=== PATIENT | female | born 1970 | race Caucasian/White ===

== ENCOUNTER → 2017-10-31 18:02 | Outpatient (CLI) | payer BC, SELFPAY | PROVIDERS: Family Provider Family Medicine; PCP Family Medicine; Visit Provider Family Medicine | DX: N39.0 Urinary tract infection, site not specified (principal) | CPT/HCPCS: 87086; 87088; 87186 ==

== ENCOUNTER 2018-03-20 06:42 | Emergency (ER) | payer BC, SELFPAY ==
[2018-03-20 06:42] VITALS: BP 169/86; PULSE 88; RESP 15; TEMP 37; O2SAT 96; BMI 35.8
--- NOTE | 2018-03-20 07:27 | CT_ITS ---
STUDY: CT ABDOMEN AND PELVIS WITHOUT CONTRAST REASON FOR EXAM: Female, 47 years old. Left flank pain. RADIATION DOSAGE (If Supplied By Facility): CTDIvol = ( 17.36 ) mGy, DLP = ( 897.78 ) mGycm TECHNIQUE: Transaxial images were obtained from the dome of the diaphragm to the symphysis pubis without oral contrast, and without intravenous contrast. Sagittal and coronal images were reconstructed. Individualized dose optimization techniques were used for this CT. COMPARISON: Comparison is made with prior examination dated April 30, 2017. FINDINGS: The visualized lung bases are unremarkable. The visualized portions of the heart are within normal limits. Normal liver. The patient is status post cholecystectomy. Normal spleen. Normal pancreas. Normal bilateral adrenal glands. Multiple nonobstructive right intrarenal calculi. The largest measures 3 mm. There are multiple tiny left intrarenal calculi. Mild degree of left hydronephrosis due to a 5.4 mm calculus at the left ureteral pelvic junction. Normal visualized stomach. Normal small intestine. Normal colon. The appendix is visualized and appears normal. Normal abdominal aorta. Normal inferior vena cava. There is borderline retroperitoneal lymphadenopathy with enlarged nodes no greater than 10mm in the short axis diameter. Normal urinary bladder. There is a small umbilical hernia containing fat. There are degenerative changes of the visualized lumbar spine. CT/Abdomen/Pelvis without Cont IMPRESSION: 5.4 mm calculus at the left ureteral pelvic junction with left hydronephrosis. Bilateral nonobstructive intrarenal calculi. Electronically Signed: Sumeet Loja MD at 8:37 EDT Tel [phone], Service support ,
[2018-03-20] MEDS: Ketorolac 30 MG/ML Syringe IV (07:39)
[2018-03-20] MEDS: Ondansetron 4 MG/2 ML Vial IV (07:39)
[2018-03-20] MEDS: Morphine 4 MG/ML Syringe IV (07:39)
[2018-03-20] MEDS: 0.9% Normal Saline 1,000 ML 250 ML IV ×2 (07:40→11:30)
[2018-03-20 07:44] LABS: Absolute Lymphocyte Count 2.02 X10^3/ul (0.83-4.51); Absolute Neutrophil Count 13.4 X10^3/uL (2.0-7.7); Basophil# 0.02 X10^3/uL; Basophil% 0.1 % (0-1); Eosinophil# 0.14 X10^3/uL; Eosinophils% 0.9 % (0-5); Hematocrit 39.3 % (37-47); Hemoglobin 12.6 g/dl (12.0-15.0); Lymphocyte # 2.02 X10^3/ul (4.0); Lymphocyte % 12.7 % (19-41); Mean Corp Hgb Conc 32.1 g/gl (32-36); Mean Corpuscular Hgb 28.3 pg (27.0-32.0); Mean Corpuscular Volume 88.1 fL (81-99); Mean Platelet Vol. 9.6 fl (6.2-12.0); Monocyte# 0.24 X10^3/uL; Monocyte% 1.5 % (0-10); Neutrophil % 84.5 % (47-70); Platelet Count 300 K/mm3 (150-450); RBC Distribution Width SD 45.1 fl (35.1-43.9); Red Blood Count 4.46 M/mm3 (4.2-5.4); White Blood Count 15.9 K/mm3 (4.4-11.0)
[2018-03-20 07:48] LABS: POSITIVE COUNT NO; POSITIVE DIFFERENTIAL NO; POSITIVE MORPHOLOGY NO
[2018-03-20 07:51] LABS: Anion Gap 12 (5-15); BUN 15 mg/dL (7-18); BUN/Creat Ratio 17.2 RATIO (10-20); Calcium,Total 9.5 mg/dL (8.5-10.1); Chloride 105 mmol/L (98-107); Creatinine, Serum 0.87 mg/dL (0.55-1.02); EST Glomerular Filtration Rate 74 mL/min (>60); Est Glom Filt Rate - Afr Amer 90 mL/min (>60); Estimated Creatinine Clearance 74.84 ml/min; Glucose 150 mg/dL (74-106); Potassium 3.6 mmol/L (3.5-5.1); Sodium Level 142 mmol/L (136-145)
[2018-03-20 07:52] LABS: Mucous, Urine 0 SEEN /hpf (<or=2+)
[2018-03-20 08:03] LABS: Color, Urine Yellow (Yellow); Glucose, Dipstick Normal (Normal); Ketone-Dipstick Negative (Negative); Leukocyte Esterase-Dipstick 100 /ul (Negative); Nitrite-Dipstick Negative (Negative); Occult Blood-Urine 250 /ul (Negative); Protein-Dipstick 100 mg/dl (Negative); Urine Bilirubin Dipstick Negative (Negative); Urine Clarity Sl. Cloudy (Clear); Urine Urobilinogen Normal (Normal); Urine pH 6.5 (5.0 - 8.0)
[2018-03-20 08:10] LABS: Bacteria 1+ /hpf (None Seen); Red Blood Cells-Urine 25-50 SEEN /hpf (0-5); Squamous Epithelial Cells - UA 0-5 SEEN /hpf (5-10); White Blood Cells 10-25 SEEN /hpf (0-5)
--- NOTE | 2018-03-20 09:05 | NURSING ---
CALLED [facility] TO REACH KULDEEP LI. JONNIE. CALLED HIS CELL, LEFT MESSAGE FOR HIM TO CALL US. CALLED OFFICE BACK, THEY WILL LET HIM KNOW WHEN HE ARRIVES AROUND [phone]
--- NOTE | 2018-03-20 09:40 | ED.VISSUMM ---
- ER Visit Summary Date of Service: 03/20/18 Chief Complaint: Kidney stone History of Present Illness: The patient is a 47 F states that yesterday she began to have vagina hurting and experiencing urinary frequency. She was concerned that she was getting another urinary tract infection. Then during the night the pain worsened she developed nausea vomiting and also left flank pain. She denies any fevers. She has a history of kidney stones having had a stent placed several years ago. She states that she is currently seeing a urologist at the [facility] here in [place] - Dr. Eliezer Hoffman. In addition to the stones, the patient has a history of interstitial cystitis Physical Examination: Afebrile vital signs are stable Gen: Well-nourished well-developed Head: Normocephalic atraumatic Eyes: Perrl EOMI ENT: TMs clear no rhinorrhea moist mucous membranes Neck: Supple no lymphadenopathy no JVD nontender CVS: Regular rate rhythm no murmurs normal S1-S2 Respiratory: No distress clear to auscultation bilaterally chest nontender Abdomen: Soft mild suprapubic tenderness to palpation nondistended normal bowel sounds no masses Back: Nontender Extremity: Nontender no edema Skin: Normal color no rash Neuro: alert orientated ?3 CN II-XII intact normal strength sensation reflexes gait cerebellar Psych: Normal affect normal mood Test Results: White count 15.9. Creatinine normal. Urinalysis demonstrates 10-25 white cells 25-50 red blood cells and 1+ bacteria. CT flank study demonstrated a 6 mm left UPJ stone with associated hydronephroureter. Emergency Department Course and Treatment: She received IV fluids, morphine, Zofran, and later Rocephin. She is feeling better. I put several calls out to her urologist. We discussed her care. Plan was to offer her outpatient evaluation at [facility] today or possible transfer to [facility] for urologic evaluation. She has chosen [facility]. Patient was accepted by Dr. De La Torre. She will go by private vehicle to their emergency room where she is scheduled to have surgery this afternoon. She was explicitly told to go directly to the ER and not to ingest any food or drink. Impression: 1. 6 mm left UPJ stone 2. UTI This note was generated with [employer] dictation software. It may contain incorrect words, spelling, and punctuation that were not noted in review of the chart prior to signing ED Disposition - Plan for ED Patient: Chief Complaint: Flank Pain Referrals: Regino Venegas MD [Primary Care Provider] -
--- NOTE | 2018-03-20 09:43 | ED.DCSUM_ITS ---
- ER Visit Summary Date of Service: 03/20/18 Chief Complaint: Kidney stone History of Present Illness: The patient is a 47 F states that yesterday she began to have vagina hurting and experiencing urinary frequency. She was concerned that she was getting another urinary tract infection. Then during the night the pain worsened she developed nausea vomiting and also left flank pain. She denies any fevers. She has a history of kidney stones having had a stent placed several years ago. She states that she is currently seeing a urologist at the [facility] here in [place] - Dr. Eliezer Hoffman. In addition to the stones, the patient has a history of interstitial cystitis Physical Examination: Afebrile vital signs are stable Gen: Well-nourished well-developed Head: Normocephalic atraumatic Eyes: Perrl EOMI ENT: TMs clear no rhinorrhea moist mucous membranes Neck: Supple no lymphadenopathy no JVD nontender CVS: Regular rate rhythm no murmurs normal S1-S2 Respiratory: No distress clear to auscultation bilaterally chest nontender Abdomen: Soft mild suprapubic tenderness to palpation nondistended normal bowel sounds no masses Back: Nontender Extremity: Nontender no edema Skin: Normal color no rash Neuro: alert orientated ?3 CN II-XII intact normal strength sensation reflexes gait cerebellar Psych: Normal affect normal mood Test Results: White count 15.9. Creatinine normal. Urinalysis demonstrates 10- 25 white cells 25-50 red blood cells and 1+ bacteria. CT flank study demonstrated a 6 mm left UPJ stone with associated hydronephroureter. Emergency Department Course and Treatment: She received IV fluids, morphine, Zofran, and later Rocephin. She is feeling better. I put several calls out to her urologist. We discussed her care. Plan was to offer her outpatient evaluation at [facility] today or possible transfer to [facility] for urologic evaluation. She has chosen [facility]. Patient was accepted by Dr. De La Torre. She will go by private vehicle to their emergency room where she is scheduled to have surgery this afternoon. She was explicitly told to go directly to the ER and not to ingest any food or drink. Impression: 1. 6 mm left UPJ stone 2. UTI This note was generated with [employer] dictation software. It may contain incorrect words, spelling, and punctuation that were not noted in review of the chart prior to signing ED Disposition - Plan for ED Patient: Chief Complaint: Flank Pain Referrals: Regino Venegas MD [Primary Care Provider] -
--- NOTE | 2018-03-20 11:02 | NURSING ---
FAXED FACESHEET TO [facility]
--- NOTE | 2018-03-20 11:18 | ED.RN ---
pt accepted at [facility]. will go to the er. dr thurston will take to surgery
[2018-03-20 11:39] VITALS: BP 154/80; PULSE 80; RESP 14; O2SAT 98
== END 2018-03-20 12:07 | disposition short-term general hospital (02) ==
PROVIDERS: Emergency Provider Emergency Medicine; Family Provider Family Medicine; PCP Family Medicine
DX: N20.1 Calculus of ureter (principal); N39.0 Urinary tract infection, site not specified; Z87.442 Personal history of urinary calculi; K21.9 Gastro-esophageal reflux disease without esophagitis; F32.9 Major depressive disorder, single episode, unspecified; Z79.899 Other long term (current) drug therapy
CPT/HCPCS: 74176; 80048; 81001; 85025; 87086; 87088; 87186; 96361; 96365; 96375; 99284; J7030; A4216; J0696; J2405

== ENCOUNTER → 2018-05-06 11:15 | Outpatient (CLI) | payer BC, SELFPAY ==
--- NOTE | 2018-05-06 11:18 | US_ITS ---
STUDY: RENAL ULTRASOUND - COMPLETE REASON FOR EXAM: Female, 47 years old. Bilateral renal stones. TECHNIQUE: Ultrasound evaluation of the kidneys was performed with real-time and static avila-scale imaging. COMPARISON: CT scan of 03/20/2018. FINDINGS: RIGHT KIDNEY: Normal location of the right kidney, which is normal in size. The right kidney measures 10.9 x 5.1 x 5.2 cm. There is a normal cortex of the right kidney. The renal cortex measures 1.4 cm. There is no right renal mass or cyst. Hyperechoic structure 1.2 cm appears to represent a nonobstructing renal stone. There is no right hydronephrosis. DISTAL RIGHT URETER: There is non-visualization of the distal right ureter. There is no demonstrated right ureterovesical junction calculus. There is a visualized right ureteral jet. LEFT KIDNEY: Normal location of the left kidney, which is normal in size. The left kidney measures 13.0 x 4.5 x 5.7 cm. There is a normal cortex of the left kidney. The renal cortex measures 1.5 cm. There is no left renal mass or cyst. Several small hyperechoic foci 8 mm size or less are consistent with nonobstructing stones. There is no left hydronephrosis. DISTAL LEFT URETER: There is non-visualization of the distal left ureter. There is no demonstrated left ureterovesical junction calculus. There is a visualized left ureteral jet. BLADDER: The distended urinary bladder has a volume of 112 ml. There is a normal wall thickness of the distended urinary bladder. There is no demonstrated mass within the urinary bladder. There are no demonstrated bladder calculi. US/Kidney and Bladder IMPRESSION: Bilateral nonobstructing renal stones. No hydronephrosis on either side. Electronically Signed: Leroy Taylor MD at 23:14 EST , Service support ,
== END ==
LOC: US 11:17
PROVIDERS: Family Provider Family Medicine; PCP Family Medicine
DX: N20.0 Calculus of kidney (principal)
CPT/HCPCS: 76770

== ENCOUNTER → 2018-05-31 14:03 | Outpatient (CLI) | payer BC, SELFPAY ==
--- NOTE | 2018-05-31 14:07 | RAD_ITS ---
HISTORY: Recent kidney stones on both sides. Patient states she has had recent surgery to remove stones on both sides. EXAM: Abdominal series 2 views COMPARISON: KUB 05/18/[address] abdomen and pelvis 03/20/2018 FINDINGS: No bowel obstruction. Partial obscuration of both kidneys secondary to overlying bowel. Cluster of small stones within the lower pole of the left kidney. Probable additional small stones, lower pole of the right kidney. Multiple pelvic phleboliths without significant change. No soft tissue mass or organomegaly. RAD/Abdomen Single View IMPRESSION: 1. No acute disease. 2. Multiple small bilateral renal stones. at 0124 Reported and signed by: Carson Flores MD Electronically Signed: Carson Flores, at 1:22 EST Tel , Service support ,
--- OUTSIDE RECORDS SUMMARY | 2018-07-26 13:32 | XMS RPT_ITS ---
:1970 Author Organization OH[facility] Care Team Providers Name Role Phone KULDEEP LI (JONNIE) Attending Unavailable BRITANY MAYBERRY Referring Unavailable PROVIDER, UNKNOWN Referring Unavailable Venegas, Regino Primary Care Unavailable TY DE LA TORRE Attending Unavailable DANI MOCK Attending Unavailable PROVIDER, UNKNOWN Referring Unavailable Venegas, Regino Primary Care Unavailable Venegas, Regino Primary Care Unavailable Tariq Farah Attending Unavailable LILIAM GRIFFIN Attending Unavailable LILIAM GRIFFIN Referring Unavailable Venegas, Regino Primary Care Unavailable LILIAM GRIFFIN Consulting Unavailable LILIAM GRIFFIN Attending Unavailable LILIAM GRIFFIN Referring Unavailable Venegas, Regino Primary Care Unavailable Venegas, Regino Attending Unavailable Venegas, Regino Primary Care Unavailable Venegas, Regino Referring Unavailable PROBLEMS PROBLEMS DATE TYPE CONDITION / CODE ATTENDING STATUS SOURCE 05/31/2018 Unknown N20.0 - Calculus LILIAM GRIFFIN Active [place] [facility] / Community N20.0(ICD-10) Hospital Repository 04/04/2018 Admitting Calculus of ureter Darcy MOCK [facility] Diagnosis / N20.1(ICD-10) [facility] System Repository 04/04/2018 Admitting Personal history Darcy MOCK [facility] Diagnosis of urinary (tract) [facility] System infections / Repository Z87.440(ICD-10) 03/20/2018 Admitting Calculus of kidney TY DE LA TORRE [facility] Diagnosis / N20.0(ICD-10) System Repository 03/20/2018 Admitting Pyonephrosis / TY DE LA T[facility] Diagnosis N13.6(ICD-10) System Repository 03/20/2018 Admitting Obesity, TY DE LA TORRE [facility] Diagnosis unspecified / System E66.9(ICD-10) Repository 03/20/2018 Admitting Body mass index TY DE LA TORRE [facility] Diagnosis (BMI) 35.0-35.9, System adult / Repository Z68.35(ICD-10) 11/01/2017 Unknown N39.0 - Urinary Regino Venegas [facility] tract infection, Community site not specified Hospital / N39.0(ICD-10) Repository PROCEDURES PROCEDURES No Procedure Records FoundRESULTS RESULTS ABDOMEN SINGLE VIEW Observed: 05/31/2018 Status: F Source: [place] 2:07 PM [facility] REPOSITORY [facility] Imaging Services [address] [place] [id number] Abdomen Single View MR#: [id number] Acct: [id number] Name: SUNI TRINIDAD Rep #: [id number] : 1970 F 47 From: Carson Flores MD PCP: Regino Venegas MD Status: REG CLI Study: Abdomen Single View Date of Exam: 05/31/18 Exam# [id number] Ordering Dr: HARPREET FELIX HISTORY: Recent kidney stones on both sides. Patient states she has had recent surgery to remove stones on both sides. EXAM: Abdominal series 2 views COMPARISON: KUB 05/18/[address] abdomen and pelvis 03/20/2018 FINDINGS: No bowel obstruction. Partial obscuration of both kidneys secondary to overlying bowel. Cluster of small stones within the lower pole of the left kidney. Probable additional small stones, lower pole of the right kidney. Multiple pelvic phleboliths without significant change. No soft tissue mass or organomegaly. RAD/Abdomen Single View IMPRESSION: 1. No acute disease. 2. Multiple small bilateral renal stones. at 0124 Reported and signed by: Carson Flores MD Electronically Signed: Carson Flores, at 1:22 EST Tel , Service support , CC: HARPREET FELIX; Regino Venegas MD Dielectric Machine Operator: Signed KIDNEY AND BLADDER Observed: 05/06/2018 Status: F Source: [place] 11:18 AM [facility] REPOSITORY [facility] Imaging Services [address] [place] [address] Kidney and Bladder MR#: [id number] Acct: [id number] Name: SUNI TRINIDAD Rep #: [id number] : 1970 F 47 From: Leroy Taylor MD PCP: Regino Venegas MD Status: REG CLI Study: Kidney and Bladder Date of Exam: 05/06/18 Exam# [id number] Ordering Dr: KATIANA FELIX STUDY: RENAL ULTRASOUND - COMPLETE REASON FOR EXAM: Female, 47 years old. Bilateral renal stones. TECHNIQUE: Ultrasound evaluation of the kidneys was performed with real-time and static avila-scale imaging. COMPARISON: CT scan of 03/20/2018. FINDINGS: RIGHT KIDNEY: Normal location of the right kidney, which is normal in size. The right kidney measures 10.9 x 5.1 x 5.2 cm. There is a normal cortex of the right kidney. The renal cortex measures 1.4 cm. There is no right renal mass or cyst. Hyperechoic structure 1.2 cm appears to represent a nonobstructing renal stone. There is no right hydronephrosis. DISTAL RIGHT URETER: There is non-visualization of the distal right ureter. There is no demonstrated right ureterovesical junction calculus. There is a visualized right ureteral jet. LEFT KIDNEY: Normal location of the left kidney, which is normal in size. The left kidney measures 13.0 x 4.5 x 5.7 cm. There is a normal cortex of the left kidney. The renal cortex measures 1.5 cm. There is no left renal mass or cyst. Several small hyperechoic foci 8 mm size or less are consistent with nonobstructing stones. There is no left hydronephrosis. DISTAL LEFT URETER: There is non-visualization of the distal left ureter. There is no demonstrated left ureterovesical junction calculus. There is a visualized left ureteral jet. BLADDER: The distended urinary bladder has a volume of 112 ml. There is a normal wall thickness of the distended urinary bladder. There is no demonstrated mass within the urinary bladder. There are no demonstrated bladder calculi. US/Kidney and Bladder IMPRESSION: Bilateral nonobstructing renal stones. No hydronephrosis on either side. Electronically Signed: Leroy Taylor MD at 23:14 EST , Service support , CC: KATIANA FELIX; Regino Venegas MD Dielectric Machine Operator: Signed CALCULI ANALYSIS(STONE) Collected: 04/04/2018 Status: F Source: [employer] 4:21 PM SYSTEM REPOSITORY TYPE CODE TESTS RESULT OUT OF REFERENCE UNITS RANGE LAB CALCR mg Calculi Mass 3 LAB CALC1 NA Calculi Number 1 LAB CALC2 mm Calculi Size 1 to 4 LAB CALC3 NA Calculi Description See Note Result Comment: Specimen consists of a single, small, light nava, irregular calculus. LAB CALC4 NA Calculi Composition See Note Result Comment: Calculi composed primarily of calcium oxalate dihydrate. INTERPRETIVE INFORMATION: Calculi (Stone) analysis Calculi are the products of physiological processes that yield crystalline compounds in a matrix of biological compounds and blood. Matrix components are not reported. The clinically significant crystalline components identified in calculi specimens are reported. Gross description may not be consistent with composition determined by FTIR analysis. Performed by [facility], [address] [place] [id number] [email or web address], Todd Casarez MD - Lab. Director Performed By: #### CALCO #### The performing lab is in the report. OP NOTE Observed: 04/04/2018 Status: F Source: [employer] 1:37 PM SYSTEM REPOSITORY Dani Mock MD 04/04/2018 at 1:37 PM UROLOGY OPERATIVE REPORT PATIENT NAME: Suni Trinidad DATE OF : 1970 TODAY'S DATE: 04/04/2018 PreOp Dx ureteral calculus PostOp Dx Same Operation : cysto right stent removal right ureteroscopy right stone basket extraction, no stent placed Surgeon Dani Mock MD Assist [facility] EBL Minimal Drains none Mccurdy Specimen stone Condition To PACU Findings:Small left ureteral calculus removed with basket. No stent replaced. Ureter clear up to pelvis. Suni Trinidad is a 47 y.o. female who presents with ureteral calculus . After having a discussion on treatment options, risks and benefits, the patient wishes to proceed forward with surgical intervention Patient was brought to the operating room. A thorough time out was performed and everyone present was in agreement. Patient was placed on OR table. Anesthesia and lines were maintained by the anesthesia team. Patient was placed in the dorsal lithotomy position. Prepped and draped in usual fashion. Pressure points were padded. A cystourethroscope was inserted through the urethra and the bladder was inspected. The left stent was removed and the guide wire was advanced to the level of the kidney. The 6.9 ureteroscope was advanced next to the wire. The stone was visualized and removed with a stone basket. All of the larger stone fragments were removed with the stone basket. The ureter was reinspected and all the remaining fragments were small and easily passable. The bladder was emptied and patient awoken from anesthesia. Dani Mock MD 04/04/18 1:37 PM HCG,URINE QUAL Collected: 04/04/2018 Status: F Source: [employer] 8:41 AM SYSTEM REPOSITORY TYPE CODE TESTS RESULT OUT OF REFERENCE UNITS RANGE LAB HCGUR Negative NA Negative HCG,Urine Qual Result Comment: is the most common reason for HCG in urine, although choriocarcinoma, hydatidiform mole, and certain nontropho- blastic malignancies also result in detectable urinary HCG levels. Sensitivity = 20mIU/mL. Performed By: #### HCGUR #### [employer] [address] [place] [phone] DISCHARGE SUMMARY Observed: 03/22/2018 Status: F Source: [employer] 12:56 PM SYSTEM REPOSITORY 48 Hour Discharge Summary Note Patient ID: Suni Trinidad [id number] 47 y.o. 1970 Admit date: 03/20/2018 Discharge date: 03/22/2018 Admitting Physician: Ty De La Torre MD Discharge Physician: Finn Krishnan DO Consults: none Admission Diagnoses: Kidney stone [N20.0] obesity Procedure: cystoscopy, fluroscopy, stent placement Treatment: surgery: as above Pertinent Findings and Labs noted during admission: see Epic Significant Diagnostic Studies: See Epic Discharge Diagnoses: Kidney stone [N20.0] obesity Discharged Condition: good Homegoing Instructions: activity as tolerated Recommended Follow-up: Follow up with Dr. Mock in 1-2 weeks Diet: regular diet Discharge Medications: Suni Trinidad Home Medication Instructions MAMTA:[id number] Printed on:03/27/18 2389 Medication Information cephALEXin (KEFLEX) 500 MG capsule Take 1 capsule by mouth 3 times daily Desogestrel-Ethinyl Estradiol (AZURETTE PO) Take by mouth gabapentin (NEURONTIN) 600 MG tablet Take 600 mg by mouth 3 times daily.. omeprazole (PRILOSEC) 20 MG delayed release capsule Take 20 mg by mouth daily oxybutynin (DITROPAN XL) 10 MG extended release tablet Take 1 tablet by mouth daily tamsulosin (FLOMAX) 0.4 MG capsule Take 1 capsule by mouth daily for 14 days Disposition: home GRAM W/ AUTODIFF Collected: 03/22/2018 Status: F Source: [employer] 12:56 AM SYSTEM REPOSITORY TYPE CODE TESTS RESULT OUT OF REFERENCE UNITS RANGE LAB IWBC 3.6-10.7 10*3/uL WBC Normal 9.0 LAB RBC 3.80-5.20 10*6/uL Low RBC 3.53 LAB HGB 11.7-16.0 g/dL Low Hemoglobin 10.5 LAB HCT 35.0-47.0 % Low Hematocrit 30.1 LAB MCV 79.0-98.0 fL MCV Normal 85.4 LAB MCH 26.0-34.0 pg MCH Normal 29.7 LAB MCHC 32.0-36.0 % MCHC Normal 34.8 LAB RDW 11.5-14.5 % RDW Normal 14.4 LAB PLT 140-440 10*3/uL Platelet Normal 278 LAB MPV 7.4-10.4 fL MPV Normal 8.1 LAB GRAN% 40.0-80.0 % Granulocytes Normal 64.5 LAB LYMP% 20.0-40.0 % Lymphocytes Normal 25.3 LAB MONO% 2.0-10.0 % Monocytes Normal 9.6 LAB EOS% 1.0-6.0 % Low Eosinophils 0.3 LAB BAS% 0.0-2.0 % Basophils Normal 0.3 LAB ANC 1.8-7.0 10*3/uL Abs Normal Neutrophile Cnt 5.8 LAB ALC 1.0-4.3 10*3/uL Abs Lymph Cnt Normal 2.3 LAB AMC 0.0-0.8 10*3/uL Abs Monocyte High Cnt 0.9 LAB AEC 0.0-0.5 10*3/uL Abs Eosin Cnt Normal 0.0 LAB ABC 0.0-0.2 10*3/uL Abs Baso Cnt Normal 0.0 Performed By: #### HEMANA LAURA, BMP3 #### [employer] [address] [place] [phone] BASIC METABOLIC PANEL Collected: 03/22/2018 Status: F Source: [employer] 12:56 AM SYSTEM REPOSITORY TYPE CODE TESTS RESULT OUT OF RANGE REFERENCE UNITS LAB NA3 137-145 mmol/L Sodium Normal 139 LAB K3 3.5-5.1 mmol/L Normal Potassium 3.6 LAB CL3 98-107 mmol/L High Chloride 108 LAB CO23 22-30 mmol/L Carbon Normal Dioxide 24 LAB ANIN3 NA Anion Gap 7 LAB GLUC3 70-100 mg/dL Glucose Normal 99 LAB BUN3 7-20 mg/dL Urea Normal Nitrogen 9 LAB CRET3 0.52-1.25 mg/dL Normal Creatinine 0.69 LAB GF3BR >60 mL/min eGFR > 60.0 LAB GF3WR >60 mL/min eGFR OTHER > 60.0 Result Comment: Source- MDRD equation with creatinine calibration to IDMS(NKDEP) eGFR not recommended for drug dose adjustment LAB CA3 8.4-10.4 mg/dL Normal Calcium 8.8 Performed By: #### HEMDF, BMP3 #### [facility] [address] [place] [address] OP NOTE Observed: 03/21/2018 Status: F Source: [employer] 9:09 AM SYSTEM REPOSITORY UROLOGY OPERATIVE REPORT PATIENT NAME: Suni Trinidad DATE OF : 1970 TODAY'S DATE: 03/21/2018 PreOp Dx: :URETERAL CALCULUS PostOp Dx: Same Operation Cystoscopy, flouroscopy,stent placement Surgeon Dani Mock MD Assist Finn Novak Anesthesia:general lma EBL Minimal Drains 6fr X 24cmJJ Mccurdy Specimen Complications None; patient tolerated the procedure well. Condition To PACU INDICATIONS: Suni Trinidad , is a 47 y.o. female who has kidney stone.She presents for cystoscopy and pyelogram. The risks, benefits, complications, treatment options, and expected outcomes were discussed with the patient. The patient concurred with the proposed plan, giving informed consent. FINDINGS: The Urethra is normal without strictures and without scarring. Bladder: Normal mucosa, without lesions. Ureteral orifice(s) was/were seen both. Ureteral orifice(s) both were in the normal location and both ureteral orifices were effluxing clear urine. Bimanual revealednormal She has 2 ureteral stones on the left, stent placed due to fever and uti. She will need laser litho in 1-2 weeks once uti clears. PROCEDURE: Suni Trinidad Was brought to the operating room. Thorough time out was performed and everyone present was in agreement. Patient was placed on OR table. Anesthesia and lines were maintained by the anesthesia team. Patient was placed in the dorsal lithotomy position, prepped with Betadine, and draped in the usual sterile fashion. Pressure points were padded. A 21 Arabic sheath rigid cystoscope was used to inspect both the urethra and bladder using30 degreelens. An 0.35 glidewire was placed under fluoroscopy to the renal pelvis.Stent was placed over the wire. Good coil was noted in the kidney and bladder. The bladder was drained the scope removed.The patient was awoken from anesthesia and was transferred to the recovery room having tolerated the procedure well. . Dani Mock MD 03/21/18 9:10 AM LACTIC ACID Collected: 03/21/2018 Status: F Source: [employer] 3:59 AM SYSTEM REPOSITORY TYPE CODE TESTS RESULT OUT OF RANGE REFERENCE UNITS LAB LACT3 0.7-2.0 mmol/L Normal Lactic Acid 1.4 Performed By: #### LACT3, HEMMIGUEL ÁNGEL BMP3M #### [facility] [employer] [address] [phone] HEMOGRAM Collected: 03/21/2018 Status: F Source: [employer] 3:59 AM SYSTEM REPOSITORY TYPE CODE TESTS RESULT OUT OF RANGE REFERENCE UNITS LAB IWBC 3.6-10.7 10*3/uL WBC Normal 10.5 LAB RBC 3.80-5.20 10*6/uL RBC Normal 3.84 LAB HGB 11.7-16.0 g/dL Low Hemoglobin 11.5 LAB HCT 35.0-47.0 % Low Hematocrit 32.8 LAB MCV 79.0-98.0 fL MCV Normal 85.3 LAB MCH 26.0-34.0 pg MCH Normal 29.9 LAB MCHC 32.0-36.0 % MCHC Normal 35.1 LAB RDW 11.5-14.5 % RDW Normal 14.2 LAB PLT 140-440 10*3/uL Platelet Normal 259 LAB MPV 7.4-10.4 fL MPV Normal 8.1 Performed By: #### LACT3, ROSI BMP3M #### [facility] [employer] [address] [phone] BASIC METABOLIC PANEL Collected: 03/21/2018 Status: F Source: [employer] 3:59 AM SYSTEM REPOSITORY TYPE CODE TESTS RESULT OUT OF RANGE REFERENCE UNITS LAB NA3 137-145 mmol/L Sodium Normal 140 LAB K3 3.5-5.1 mmol/L Normal Potassium 3.6 LAB CL3 98-107 mmol/L High Chloride 110 LAB CO23 22-30 mmol/L Low Carbon Dioxide 21 LAB ANIN3 NA Anion Gap 9 LAB GLUC3 70-100 mg/dL High Glucose 123 LAB BUN3 7-20 mg/dL Urea Normal Nitrogen 7 LAB CRET3 0.52-1.25 mg/dL Normal Creatinine 0.62 LAB GF3BR >60 mL/min eGFR > 60.0 LAB GF3WR >60 mL/min eGFR OTHER > 60.0 Result Comment: Source- MDRD equation with creatinine calibration to IDMS(NKDEP) eGFR not recommended for drug dose adjustment LAB CA3 8.4-10.4 mg/dL Low Calcium 8.2 Performed By: #### LACT3, HEMOG, BMP3M #### [facility] [address] [place] [phone] CR ABDOMEN AP Observed: 03/20/2018 Status: F Source: [employer] 9:41 PM SYSTEM REPOSITORY Patient Name: SUNI TRINIDAD Diagnostic Radiology Exam Date/Time 03/20/2018 20:26:55 EDT Exam CR Abdomen AP Ordering Physician [id number] TAYLOR Accession Number [id number] CPT4 Codes 58900 () Reason For Exam left-sided ureteral stones Report KUB CLINICAL INDICATION: Left-sided ureteral stones COMPARISON: None Supine images of the abdomen were obtained. Small stones are present in the lower pole of each kidney. On the left there is an approximately 0.4 cm calcification that projects along the psoas margin between the L2 and L3 spinous processes, probably in the region of the left ureteropelvic junction. Multiple vascular calcifications are noted in the pelvis. A calcification in the general vicinity of the left ureterovesicular junction cannot be excluded as a ureteral stone. Bowel gas pattern is nondilated. There is no gross evidence of free intraperitoneal air. Degenerative changes are noted in the hips, probably moderate on the right with femoral head spurring noted. IMPRESSION: Bilateral renal stones 4 mm calcification on the left in the vicinity of the ureteropelvic junction Small calcification in the pelvis in the vicinity of the left ureterovesicular junction could be a stone or phlebolith Report Dictated on Final Dictated: 03/20/2018 9:41 pm Dictating Physician: MD MESA DIANE Signed Date and Time: 03/20/2018 9:43 pm Signed by: MD MESA DIANE Transcribed Date and Time: 03/20/2018 9:41 LACTIC ACID Collected: 03/20/2018 Status: F Source: [employer] 9:41 PM SYSTEM REPOSITORY TYPE CODE TESTS RESULT OUT OF REFERENCE UNITS RANGE LAB LACT3 0.7-2.0 mmol/L High Alert Lactic Acid 2.4 Performed By: #### LACT3 #### [employer] [address] [place] [address] Observed: 03/20/2018 Status: F Source: [employer] CULTURE BLOOD 9:35 PM SYSTEM REPOSITORY Order Comment: Specimen Source Comment:Blood CULTURE BLOOD --> Status: F No growth at 5 days. Performed By: #### C/BLD #### [employer] [address] [place] [phone] HEMOGRAM W/ AUTODIFF Collected: 03/20/2018 Status: F Source: [employer] 9:27 PM SYSTEM REPOSITORY TYPE CODE TESTS RESULT OUT OF REFERENCE UNITS RANGE LAB IWBC 3.6-10.7 10*3/uL WBC High 14.3 LAB RBC 3.80-5.20 10*6/uL RBC Normal 4.02 LAB HGB 11.7-16.0 g/dL Hemoglobin Normal 12.0 LAB HCT 35.0-47.0 % Low Hematocrit 34.0 LAB MCV 79.0-98.0 fL MCV Normal 84.6 LAB MCH 26.0-34.0 pg MCH Normal 29.8 LAB MCHC 32.0-36.0 % MCHC Normal 35.3 LAB RDW 11.5-14.5 % RDW Normal 14.3 LAB PLT 140-440 10*3/uL Platelet Normal 275 LAB MPV 7.4-10.4 fL MPV Normal 7.8 LAB GRAN% 40.0-80.0 % Granulocytes High 85.1 LAB LYMP% 20.0-40.0 % Low Lymphocytes 10.1 LAB MONO% 2.0-10.0 % Monocytes Normal 4.4 LAB EOS% 1.0-6.0 % Low Eosinophils 0.1 LAB BAS% 0.0-2.0 % Basophils Normal 0.3 LAB ANC 1.8-7.0 10*3/uL Abs High Neutrophile Cnt 12.2 LAB ALC 1.0-4.3 10*3/uL Abs Lymph Cnt Normal 1.4 LAB AMC 0.0-0.8 10*3/uL Abs Monocyte Normal Cnt 0.6 LAB AEC 0.0-0.5 10*3/uL Abs Eosin Cnt Normal 0.0 LAB ABC 0.0-0.2 10*3/uL Abs Baso Cnt Normal 0.0 Performed By: #### HEMDF, PT, BMP3M #### [employer] [address] [place] [phone] PROTHROMBIN TIME Collected: 03/20/2018 Status: F Source: [employer] 9:27 PM SYSTEM REPOSITORY TYPE CODE TESTS RESULT OUT OF REFERENCE UNITS RANGE LAB PROTM 9.0-12.0 s Prothrombin Normal Time 10.4 Result Comment: . LAB INR 0.9-1.1 NA Normal INR 1.0 Result Comment: Recommended Anticoagulant Therapy: SEE BELOW ----- INR of 2.0 - 3.0 : - Prophylaxis of Venous Thrombosis (high-risk surgery) - Treatment of Venous Thrombosis - Treatment of Pulmonary Embolism (Includes tissue heart valves, Acute Myocardial Infarction to prevent systemic embolism, Valvular Heart Disease, and Atrial Fibrillation) ----- INR of 2.5 - 3.5 : - Mechanical Prosthetic Valves (high risk) - If oral anticoagulant therapy is used to prevent Myocardial Infarction Performed By: #### HEMANA LAURA PT, BMP3M #### [employer] [address] [place] [address] BASIC METABOLIC PANEL Collected: 03/20/2018 Status: F Source: [employer] 9:27 PM SYSTEM REPOSITORY TYPE CODE TESTS RESULT OUT OF RANGE REFERENCE UNITS LAB NA3 137-145 mmol/L Sodium Normal 137 LAB K3 3.5-5.1 mmol/L Normal Potassium 3.7 LAB CL3 98-107 mmol/L Chloride Normal 105 LAB CO23 22-30 mmol/L Carbon Normal Dioxide 22 LAB ANIN3 NA Anion Gap 11 LAB GLUC3 70-100 mg/dL High Glucose 123 LAB BUN3 7-20 mg/dL Urea Normal Nitrogen 11 LAB CRET3 0.52-1.25 mg/dL Normal Creatinine 0.70 LAB GF3BR >60 mL/min eGFR > 60.0 LAB GF3WR >60 mL/min eGFR OTHER > 60.0 Result Comment: Source- MDRD equation with creatinine calibration to IDMS(NKDEP) eGFR not recommended for drug dose adjustment LAB CA3 8.4-10.4 mg/dL Normal Calcium 9.0 Performed By: #### HEMDF, PT, BMP3M #### [employer] [address] [place] [phone] Observed: 03/20/2018 Status: F Source: [employer] CULTURE BLOOD (TWO) 9:25 PM SYSTEM REPOSITORY Order Comment: Specimen Source Comment:Blood CULTURE BLOOD (Two) --> Status: F No growth at 5 days. Performed By: #### C/BLT #### [employer] [address] [place] [address] Observed: 03/20/2018 Status: F Source: [employer] CULTURE URINE 4:54 PM SYSTEM REPOSITORY Order Comment: Specimen Source Comment:Urine, clean catch CULTURE URINE --> Status: F No growth (<1,000 CFU/ml). Performed By: #### C/UR #### [employer] [address] [place] [address] ED PROVIDER NOTE Observed: 03/20/2018 Status: F Source: [employer] 1:59 PM SYSTEM REPOSITORY [facility] EMERGENCY DEPT eMERGENCY dEPARTMENT eNCOUnter Pt Name: Suni Trinidad Birthdate 1970 Date of evaluation: 03/20/2018 Provider: Lanre Villar MD CHIEF COMPLAINT Chief Complaint Patient presents with ? Flank Pain pt diagnosed with kidney stone at [facility] and sent here. HISTORY OF PRESENT ILLNESS (Location/Symptom, Timing/Onset, Context/Setting, Quality, Duration, Modifying Factors, Severity) Note limiting factors. HPI Suni Trinidad is a 47 y.o. female who presents to the emergency department With request to be evaluate by urology. Patient states she was seen at [facility] and diagnosed with a large ureteral calculus. She was sent here for evaluation. Patient complains of flank pain. Denies chest pain shortness breath or abdominal pain. Complains of nausea without vomiting. Denies fevers. She received pain medicine at the other emergency department and feel some improvement. Nursing Notes were reviewed. REVIEW OF SYSTEMS (2+ for level 4; 10+ for level 5) Review of Systems Pertinent positives as above per history of present illness. Other systems reviewed and found to be negative to a total of 10 systems reviewed. PAST MEDICAL HISTORY No past medical history on file. SURGICAL HISTORY No past surgical history on file. CURRENT MEDICATIONS Previous Medications No medications on file ALLERGIES Bactrim ds [sulfamethoxazole-trimethoprim]; Percocet [oxycodone-acetaminophen]; Tramadol; and Vicodin [hydrocodone-acetaminophen] FAMILY HISTORY No family history on file. SOCIAL HISTORY Social History Social History ? Marital status: N/A Spouse name: N/A ? Number of children: N/A ? Years of education: N/A Social History Main Topics ? Smoking status: Not on file ? Smokeless tobacco: Not on file ? Alcohol use Not on file ? Drug use: Unknown ? Sexual activity: Not on file Other Topics Concern ? Not on file Social History Narrative ? No narrative on file SCREENINGS PHYSICAL EXAM (up to 7 for level 4, 8 or more for level 5) ED Triage Vitals [03/20/18 1610] BP Temp Temp Source Pulse Resp SpO2 Height Weight (!) 163/99 97.6 ?F (36.4 ?C) Oral 94 16 98 % 5' 6 (1.676 m) 222 lb (100.7 kg) Physical Exam Vital signs reviewed in nurse's notes. Patient is nontoxic in appearance. No respiratory distress. Head: Normocephalic, atraumatic Eyes: Pupils are equal, round and reactive to light. EOMI. Conjunctiva clear. Sclera anicteric ENT: Mucous membranes moist. Throat shows no erythema exudates or edema. Neck: No anterior adenopathy. No tenderness or stiffness. Chest: Nontender. No obvious flail segments. Lungs: Clear to auscultation bilaterally. No wheezing rales or rhonchi. Heart: Regular rate and rhythm. No audible murmur or gallop. Abdomen: Soft, nondistended, nontender. No rebound or guarding. No signs of peritonitis. Back: No midline tenderness. Positive left flank area tenderness. Extremities: No gross deformity. No obvious tenderness. No obvious joint swelling. No calf tenderness. Good distal pulses in all 4 extremities. Neurologic: Alert and fully oriented. No focal motor, sensory deficits in all 4 extremities. Cranial nerves II through XII grossly intact. Ambulatory with normal gait DIAGNOSTIC RESULTS LABS: Labs Reviewed URINE CULTURE EMERGENCY DEPARTMENT COURSE and DIFFERENTIAL DIAGNOSIS/MDM: Vitals: Vitals: 03/20/18 1610 BP: (!) 163/99 Pulse: 94 Resp: 16 Temp: 97.6 ?F (36.4 ?C) TempSrc: Oral SpO2: 98% Weight: 100.7 kg (222 lb) Height: 5' 6 (1.676 m) Medications sodium chloride flush 0.9 % injection 3 mL (not administered) morphine (PF) injection 2 mg (not administered) acetaminophen (TYLENOL) tablet 650 mg (not administered) MDM: On presentation here, urology is consulted. They will evaluate patient here in the Emergency Room and agree with plans for admission and consideration of operative intervention for stenting tomorrow. Here in the Emergency Room did review the laboratory studies and computed axial tomography scan report from the outlying facility. Patient at this time does not need repeat laboratory studies. Patient is admitted in fair condition CONSULTS: IP CONSULT TO UROLOGY PROCEDURES: Unless otherwise noted below, none Procedures FINAL IMPRESSION 1. Renal colic 2. Ureterolithiasis DISPOSITION/PLAN DISPOSITION Admitted 03/20/2018 03:59:40 PM PATIENT REFERRED TO: No follow-up provider specified. DISCHARGE MEDICATIONS: New Prescriptions No medications on file (Please note: Portions of this note were completed with a voice recognition program. Efforts were made to edit the dictations but occasionally words and phrases are mis-transcribed.) Form [id number] Lanre Villar MD (electronically signed) Emergency Medicine Provider Lanre Villar MD 03/20/18 1616 EMERGENCY DEPARTMENT Observed: 03/20/2018 Status: F Source: [place] SUMMARY 11:44 AM [facility] REPOSITORY [facility] Medical Records Department [address] [place] [address] Emergency Department Summary 03/20/18 0940 MR#: [id number] Acct: [id number] Name: SUNI TRINIDAD Rep #: [id number] : 1970 47 From: Tariq Farah DO PCP: Regino Venegas MD Status: REG ER - ER Visit Summary Date of Service: 03/20/18 Chief Complaint: Kidney stone History of Present Illness: The patient is a 47 F states that yesterday she began to have vagina hurting and experiencing urinary frequency. She was concerned that she was getting another urinary tract infection. Then during the night the pain worsened she developed nausea vomiting and also left flank pain. She denies any fevers. She has a history of kidney stones having had a stent placed several years ago. She states that she is currently seeing a urologist at the [facility] here in [place] - Dr. Kuldeep Hoffman. In addition to the stones, the patient has a history of interstitial cystitis Physical Examination: Afebrile vital signs are stable Gen: Well-nourished well-developed Head: Normocephalic atraumatic Eyes: Perrl EOMI ENT: TMs clear no rhinorrhea moist mucous membranes Neck: Supple no lymphadenopathy no JVD nontender CVS: Regular rate rhythm no murmurs normal S1-S2 Respiratory: No distress clear to auscultation bilaterally chest nontender Abdomen: Soft mild suprapubic tenderness to palpation nondistended normal bowel sounds no masses Back: Nontender Extremity: Nontender no edema Skin: Normal color no rash Neuro: alert orientated 3 CN II-XII intact normal strength sensation reflexes gait cerebellar Psych: Normal affect normal mood Test Results: White count 15.9. Creatinine normal. Urinalysis demonstrates 10-25 white cells 25-50 red blood cells and 1+ bacteria. CT flank study demonstrated a 6 mm left UPJ stone with associated hydronephroureter. Emergency Department Course and Treatment: She received IV fluids, morphine, Zofran, and later Rocephin. She is feeling better. I put several calls out to her urologist. We discussed her care. Plan was to offer her outpatient evaluation at [facility] today or possible transfer to [facility] for urologic evaluation. She has chosen [facility]. Patient was accepted by Dr. D eLa Torre. She will go by private vehicle to their emergency room where she is scheduled to have surgery this afternoon. She was explicitly told to go directly to the ER and not to ingest any food or drink. Impression: 1. 6 mm left UPJ stone 2. UTI This note was generated with [employer] dictation software. It may contain incorrect words, spelling, and punctuation that were not noted in review of the chart prior to signing ED Disposition - Plan for ED Patient: Chief Complaint: Flank Pain Referrals: Regino Venegas MD [Primary Care Provider] - What to do if you have Problems For any increased pain, shortness of breath, bleeding, nausea or vomiting, chest pain, or any unexpected problems, contact your Primary Care Provider. Call [facility] ([phone]) or report to the closest Emergency Room. Call 911 if necessary. 03/20/18 1144 <Electronically signed by Tariq Farah DO> Date Tariq Farah DO Cosigner Signature (If Indicated): Date CC: Regino Venegas MD ABDOMEN/PELVIS WITHOUT Observed: 03/20/2018 Status: F Source: [place] CONT 7:28 AM [facility] REPOSITORY [facility] Imaging Services [address] [place] [address] Abdomen/Pelvis without Cont MR#: [id number] Acct: [id number] Name: SUNI TRINIDAD Rep #: [id number] : 1970 F 47 From: Sumeet Loja MD PCP: Regino Venegas MD Status: REG ER Study: Abdomen/Pelvis without Cont Date of Exam: 03/20/18 Exam# [id number] Ordering Dr: Tariq Farah DO STUDY: CT ABDOMEN AND PELVIS WITHOUT CONTRAST REASON FOR EXAM: Female, 47 years old. Left flank pain. RADIATION DOSAGE (If Supplied By Facility): CTDIvol = ( 17.36 ) mGy, DLP = ( 897.78 ) mGycm TECHNIQUE: Transaxial images were obtained from the dome of the diaphragm to the symphysis pubis without oral contrast, and without intravenous contrast. Sagittal and coronal images were reconstructed. Individualized dose optimization techniques were used for this CT. COMPARISON: Comparison is made with prior examination dated April 30, 2017. FINDINGS: The visualized lung bases are unremarkable. The visualized portions of the heart are within normal limits. Normal liver. The patient is status post cholecystectomy. Normal spleen. Normal pancreas. Normal bilateral adrenal glands. Multiple nonobstructive right intrarenal calculi. The largest measures 3 mm. There are multiple tiny left intrarenal calculi. Mild degree of left hydronephrosis due to a 5.4 mm calculus at the left ureteral pelvic junction. Normal visualized stomach. Normal small intestine. Normal colon. The appendix is visualized and appears normal. Normal abdominal aorta. Normal inferior vena cava. There is borderline retroperitoneal lymphadenopathy with enlarged nodes no greater than 10mm in the short axis diameter. Normal urinary bladder. There is a small umbilical hernia containing fat. There are degenerative changes of the visualized lumbar spine. CT/Abdomen/Pelvis without Cont IMPRESSION: 5.4 mm calculus at the left ureteral pelvic junction with left hydronephrosis. Bilateral nonobstructive intrarenal calculi. 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 CBC W/DIFF, AUTOMATED Collected: 03/20/2018 Status: F Source: [place] 6:55 AM [facility] REPOSITORY TYPE CODE TESTS RESULT OUT OF RANGE REFERENCE UNITS LAB L100.1000 4.4-11.0 K/mm3 High WBC 15.9 LAB L100.1200 4.2-5.4 M/mm3 Normal RBC 4.46 LAB L100.1300 12.0-15.0 g/dl Normal HGB 12.6 LAB L100.1400 37-47 % Normal HCT 39.3 LAB L100.1500 81-99 fL Normal MCV 88.1 LAB L100.1600 27.0-32.0 pg Normal MCH 28.3 LAB L100.1700 32-36 g/gl Normal MCHC 32.1 LAB L100.1810 11.6-14.6 % Normal RDW CV 14.0 LAB L100.1820 35.1-43.9 fl High RDW SD 45.1 LAB L100.1900 150-450 K/mm3 Normal PLT 300 LAB L100.2000 6.2-12.0 fl Normal MPV 9.6 LAB L100.2100 47-70 % High NEUT% 84.5 LAB L100.2200 19-41 % Low LY% 12.7 LAB L100.2300 0-10 % Normal MONO% 1.5 LAB L100.2400 0-5 % Normal EO% 0.9 LAB L100.2500 0-1 % Normal BASO% 0.1 LAB L100.2550 0.0-0.9 % Normal IM GRAN % 0.300 Result Comment: IG% - Immature Granulocytes (promyelocytes, myelocytes and metamyelocytes) > 1% indicates that a LEFT SHIFT is Present. LAB L100.2620 2.0-7.7 X10 3/uL High Absolute Neut 13.4 LAB L100.2720 0.83-4.51 X10 3/ul Normal Absolute Lymph 2.02 Performed By: #### L100.0100 #### [facility] [address] [place], [place], [address] BASIC METABOLIC Collected: 03/20/2018 Status: F Source: [place] PROFILE (BMP) 6:55 AM [facility] REPOSITORY TYPE CODE TESTS RESULT OUT OF RANGE REFERENCE UNITS LAB L501.0100 74-106 mg/dL High GLU 150 Result Comment: Fasting Glucose result greater than or equal to 126 mg/dL suggests DIABETES MELLITUS per A.D.A. criteria. Please note revised GLUCOSE reference range effective 2017. LAB L501.1000 7-18 mg/dL Normal BUN 15 LAB L501.1100 0.55-1.02 mg/dL Normal CREAT,SERUM 0.87 Result Comment: The validity of the calculated GFR AND GFRAA in patients over 70 years has not been determined. Clinical correlation is essential. LAB L501.1110 >60 mL/min Normal EST GFR 74 Result Comment: Non- GFR Calc LAB L501.1115 >60 mL/min Normal EST GFR - AA 90 Result Comment: GFR Calc LAB L501.1255 ml/min Normal Estimated CRCL 74.84 LAB L501.1300 10-20 RATIO Normal BUN/CRE 17.2 LAB L501.2200 8.5-10 mg/dL Normal .1 CA 9.5 LAB L501.5300 136-14 mmol/L Normal 5 NA 142 LAB L501.5600 3.5-5. mmol/L Normal 1 K 3.6 LAB L501.5900 98-107 mmol/L Normal CL 105 LAB L501.6100 21.0-3 mmol/L Normal 2.0 CO2 25.0 LAB L501.6200 5-15 Normal GAP 12 Performed By: #### L500.2500 #### [facility] [address] [place], [address] URINALYSIS, COMPLETE Collected: 03/20/2018 Status: F Source: [place] 6:50 AM [facility] REPOSITORY Order Comment: Has pt arrived? Y How was Urine Obtained? CLEAN CATCH TYPE CODE TESTS RESULT OUT OF RANGE REFERENCE UNITS LAB L400.3000 Yellow COLOR Normal Yellow LAB L400.3050 Clear Normal CLARITY Sl. Cloudy LAB L400.3200 Normal mg/dl Normal GLUCOSE, UR Normal LAB L400.3300 Negative mg/dL Normal BILIRUBIN URINE Negative LAB L400.3400 Negative mg/dl Normal KETONE UR Negative LAB L400.3465 1.002-1.030 Normal SP.GR. DIPSTX 1.020 LAB L400.3550 5.0 - 8.0 pH UR Normal 6.5 LAB L400.3600 Negative mg/dl High PROT DIPSTX 100 LAB L400.3700 Normal mg/dl Normal UROBILI Normal LAB L400.3750 Negative Normal NITRITE UR Negative LAB L400.3780 Negative /ul High OCCULT BLOOD-UR 250 LAB L400.3800 Negative /ul High LEUK ESTERASE 100 LAB L400.4050 0-5 /hpf WBC Normal 10-25 SEEN LAB L400.4100 0-5 /hpf Normal RBC-UA 25-50 SEEN LAB L400.4150 5-10 /hpf SQUAM Normal EPI 0-5 SEEN LAB L400.4300 None Seen /hpf 1+ Normal BACTERIA LAB L400.4350 <or=2+ /hpf 0 Normal MUCUS, URINE SEEN Performed By: #### L400.0001 #### [facility] [address] [place], [address] Observed: 03/20/2018 Status: F Source: [place] CULTURE, URINE 6:50 AM [facility] REPOSITORY Has pt arrived? Y Urine Culture ORGANISM 1: Presumptive E. coli [place] Count >100,000 Presumptive E. coli: REACTION Amoxacillin/Clavulanic Acid $ 8 S Ampicillin $ >=32 R Ampicillin/Sulbactam $ >=32 R Cefazolin $ <=4 S Cefepime $ <=1 S Ceftriaxone $ <=1 S Ciprofloxacin $ <=0.25 S ESBL - Ertapenim $$$ <=0.5 S Gentamicin $ <=1 S Imipenem *NF <=0.25 S Levofloxacin $ <=0.12 S Nitrofurantoin $ <=16 S Piperacillin/Tazobactam $$ <=4 S Tobramycin $ <=1 S Trimethoprim/Sulfametho $ <=20 S (NF) indicates non-formulary drug at [facility]. Approval by Infectious Disease Specialist required before non-formulary drugs may be ordered and/or dispensed. Performed By: #### M100.0650 #### [facility] [address] [place], [address] PROGRESS Observed: 02/22/2018 Status: COMPLETED Source: [place] 10:37 AM [facility] REPOSITORY HNO ID: [id number] Author: Kuldeep Li (Pa) Service: (none) Author Type: Physician Genetic Technologist Type: Progress Notes Filed: 02/22/2018 11:26 AM Note Text: [facility] [place] PATIENT INFO: Suni Trinidad 47 year old PCP: Regino Venegas MD Referred by: Britany Mayberry A Consult: A consultation requested by Britany Mayberry A - UTI My final recommendations communicated back to the requesting physician by way of shared Medical record. CHIEF COMPLAINT: UTI HPI: This is a 47 year old female, who has had History UTi and IC 15 years , which started in 2001, and involves the Urine, Bladder Patient states this mild in severity and mild in quality, and is happening daily Aggravating factors: UTI , Alleviating Factors: No . And the patient denies having Fever, Chills, Rigors, Nausea and Vomiting VOIDING SYMPTOMS: NTF: 2 Times DTF: Q 2 HOURS FOS: Good Hesitancy: No Straining: No Intermittency: No Urgency: Yes Frequency: Yes Dysuria: Yes Gross Hematuria: No U/A Dipstick Positive Blood - Only Yes Incomplete Voiding: No Double Voiding: No Post Void Dribbling: No Incontinence: No REVIEW OF SYSTEMS: General: General: Well developed, well nourished. No acute distress HEENT: Negative for sore throat, difficulty swallowing. Negative for frequent or significant headaches, changes in vision or hearing. Cardiovascular: No history of cardiovascular symtoms or problems. No history of angina, CHF, TN, cardiac surgery of stents. Respiratory: Negative for current cough, dyspnea. No hx of pneumonia in the past six weeks Gastrointestinal: No history of GERD, PUD, abd pain, difficulty swallowing, GI bleed. Renal: Negative for renal failure and No history of dialysis Musculoskeletal: Negative for joint pain or swelling, back pain or muscle pain. Skin: Negative for lesions, rash and itching. Psychological: No history of psychiatric symptoms or problems. Neurologic: No history of TIA's, stroke, WAREHOUSE CLERK tumor, impaired sensorium, hemiplegia, paraplegia or quadriplegia. No neurological symptoms or problems. Hematology/Oncology: No history of bleeding or clotting disorder. Pt is not taking anti-coagulation or platelet medications. No history of hematological symptoms or problems. Endocrine: No history of endocrinological symtoms or problems No history of DM; has not taken steroids w/in past 30 days. Negative for excessive sweating, thirst or hunger PHYSICAL EXAMINATION: General Appearance/ Constitutional: Well developed, well nourished, and in no apparent distress HEENT: Not examined Neck: Lymph Nodes: Not examined Cardiac: Normal Breast: Not examined Pulmonary: Ascultation: Normal Effort: Normal GI: Soft and Non-tender Peripheral Vascular: Not examined Extremities: Cyanosis absent and Edema absent Skin: Normal Neurologic: Grossly non-focal and Alert and oriented ADDITIONAL DATA REVIEWED: Most recent imaging Most recent labs Results for orders placed or performed in visit on 01/16/18 UA DIP B/O Result Value Ref Range Glucose, Urine neg Neg mg/dL Bilirubin, Urine neg Neg Ketones, Urine neg Neg Specific [place], Ur 1.010 1.005 - 1.030 Hemoglobin/Blood,Ur moderate Neg pH, Urine 6.5 4.5 - 8.0 Protein, Urine 100 Neg mg/dL Urobilinogen, Urine 0.2 Normal (<1.1) EU Nitrites neg Neg Leukocytes trace Neg Color/Appearance yellow / clear comment: Quality Check Yes yes/no URINE CULTURE Result Value Ref Range Specimen Request Specimen received in preservative Culture >=100,000 CFU/ml Escherichia coli (A) Susceptibility Escherichia coli - MINIMUM INHIBITORY CONCENTRATION(VITEK) Ampicillin >=32 Resistant Gentamicin <=1 Susceptible Trimeth sulfameth <=20 Susceptible Cefazolin* <=4 Susceptible * CLSI breakpoints for therapy of uncomplicated UTI's due to E.coli, K.pneumoniae, and P.mirabilis were applied and may be used to predict the activity of oral agents(cefaclor, cefdinir, cefpodoxime, cefprozil, cefuroxime, cephalexin, loracarbef). Ciprofloxacin <=0.25 Susceptible Nitrofurantoin <=16 Susceptible Cefepime <=1 Susceptible Piperacillin/Tazobac <=4 Susceptible Ampicillin Sulbact >=32 Resistant Ceftriaxone <=1 Susceptible Meropenem <=0.25 Susceptible Ertapenem <=0.5 Susceptible IMPRESSION / PLAN: > History of UTI with residual symptoms and U/A blood and Leukocytes > Bactrim 3 day > Check Urine Culture if +ve 7 more days of Bactrim needs called in > History of IC > on Elmiron in the past , not longer taking > Last Cystoscopy was 15 years ago > Consult for IC in the near future I spent approximately 40 minutes in this visit, with more than 50% of the time devoted to patient discussion, counseling, review of records and/or coordination of care. Kuldeep Li MPAS, MT, CAREN GREWAL Observed: 02/22/2018 Status: COMPLETED Source: [place] 10:30 AM [facility] REPOSITORY Office Visit (UROLWS) SUNI TRINIDAD ([id number]) 1970 F Date Time Provider Department 02/22/18 10:30 AM KULDEEP LI) UROLWS During your visit today, we recorded the following information about you: Pulse Blood pressure Weight Height 84/minute 148/86 104.3 kg 1.651 m JONNIE Sotomayor 02/22/2018 11:26 AM Signed [facility] [place] PATIENT INFO: Suni Trinidad 47 year old PCP: Regino Venegas MD Referred by: Britany Mayberry A Consult: A consultation requested by Britany Mayberry A - UTI My final recommendations communicated back to the requesting physician by way of shared Medical record. CHIEF COMPLAINT: UTI HPI: This is a 47 year old female, who has had History UTi and IC 15 years , which started in 2001, and involves the Urine, Bladder Patient states this mild in severity and mild in quality, and is happening daily Aggravating factors: UTI , Alleviating Factors: No . And the patient denies having Fever, Chills, Rigors, Nausea and Vomiting VOIDING SYMPTOMS: NTF: 2 Times DTF: Q 2 HOURS FOS: Good Hesitancy: No Straining: No Intermittency: No Urgency: Yes Frequency: Yes Dysuria: Yes Gross Hematuria: No U/A Dipstick Positive Blood - Only Yes Incomplete Voiding: No Double Voiding: No Post Void Dribbling: No Incontinence: No REVIEW OF SYSTEMS: General: General: Well developed, well nourished. No acute distress HEENT: Negative for sore throat, difficulty swallowing. Negative for frequent or significant headaches, changes in vision or hearing. Cardiovascular: No history of cardiovascular symtoms or problems. No history of angina, CHF, TN, cardiac surgery of stents. Respiratory: Negative for current cough, dyspnea. No hx of pneumonia in the past six weeks Gastrointestinal: No history of GERD, PUD, abd pain, difficulty swallowing, GI bleed. Renal: Negative for renal failure and No history of dialysis Musculoskeletal: Negative for joint pain or swelling, back pain or muscle pain. Skin: Negative for lesions, rash and itching. Psychological: No history of psychiatric symptoms or problems. Neurologic: No history of TIA's, stroke, WAREHOUSE CLERK tumor, impaired sensorium, hemiplegia, paraplegia or quadriplegia. No neurological symptoms or problems. Hematology/Oncology: No history of bleeding or clotting disorder. Pt is not taking anti-coagulation or platelet medications. No history of hematological symptoms or problems. Endocrine: No history of endocrinological symtoms or problems No history of DM; has not taken steroids w/in past 30 days. Negative for excessive sweating, thirst or hunger PHYSICAL EXAMINATION: General Appearance/ Constitutional: Well developed, well nourished, and in no apparent distress HEENT: Not examined Neck: Lymph Nodes: Not examined Cardiac: Normal Breast: Not examined Pulmonary: Ascultation: Normal Effort: Normal GI: Soft and Non-tender Peripheral Vascular: Not examined Extremities: Cyanosis absent and Edema absent Skin: Normal Neurologic: Grossly non-focal and Alert and oriented ADDITIONAL DATA REVIEWED: Most recent imaging Most recent labs Results for orders placed or performed in visit on 01/16/18 UA DIP B/O Result Value Ref Range Glucose, Urine neg Neg mg/dL Bilirubin, Urine neg Neg Ketones, Urine neg Neg Specific [place], Ur 1.010 1.005 - 1.030 Hemoglobin/Blood,Ur moderate Neg pH, Urine 6.5 4.5 - 8.0 Protein, Urine 100 Neg mg/dL Urobilinogen, Urine 0.2 Normal (<1.1) EU Nitrites neg Neg Leukocytes trace Neg Color/Appearance yellow / clear comment: Quality Check Yes yes/no URINE CULTURE Result Value Ref Range Specimen Request Specimen received in preservative Culture >=100,000 CFU/ml Escherichia coli (A) Susceptibility Escherichia coli - MINIMUM INHIBITORY CONCENTRATION(VITEK) Ampicillin >=32 Resistant Gentamicin <=1 Susceptible Trimeth sulfameth <=20 Susceptible Cefazolin* <=4 Susceptible * CLSI breakpoints for therapy of uncomplicated UTI's due to E.coli, K.pneumoniae, and P.mirabilis were applied and may be used to predict the activity of oral agents(cefaclor, cefdinir, cefpodoxime, cefprozil, cefuroxime, cephalexin, loracarbef). Ciprofloxacin <=0.25 Susceptible Nitrofurantoin <=16 Susceptible Cefepime <=1 Susceptible Piperacillin/Tazobac <=4 Susceptible Ampicillin Sulbact >=32 Resistant Ceftriaxone <=1 Susceptible Meropenem <=0.25 Susceptible Ertapenem <=0.5 Susceptible IMPRESSION / PLAN: > History of UTI with residual symptoms and U/A blood and Leukocytes > Bactrim 3 day > Check Urine Culture if +ve 7 more days of Bactrim needs called in > History of IC > on [place] in the past , not longer taking > Last Cystoscopy was 15 years ago > Consult for IC in the near future I spent approximately 40 minutes in this visit, with more than 50% of the time devoted to patient discussion, counseling, review of records and/or coordination of care. Kuldeep Li, DERICS, MT, PAClara Yancey Ma 02/22/2018 11:43 AM Signed To see PCP for BP recheck JONNIE Sotomayor 02/22/2018 2:09 PM Signed Addended by: KULDEEP LI PA-C on: 02/22/2018 02:09 PM Modules accepted: Orders Referring Provider: BRITANY MAYBERRY [[id number]] Allergies As of Date: 02/22/2018 Noted Allergy Reaction HYDROCODONE-ACETAMINOPHEN 02/16/2016 9 - Itching IMITREX (SUMATRIPTAN) 09/19/2005 8 - GI Upset TRAMADOL 02/16/2016 9 - Itching ZOMIG (ZOLMITRIPTAN) 09/19/2005 Date Reviewed: 01/16/2018 Reviewed by: Yisel Bernard LPN - Fully Assessed Reason for Visit: Follow Up [171] UTI [116] Primary Visit Diagnosis:Acute cystitis with hematuria [N30.01] Other Visit Diagnoses:Dysuria [R30.0] Chronic interstitial cystitis [N30.10] Kidney stones [N20.0] Order(s):UA DIP, URINE (POC) [6304917] Order #: [id number]. #:[id number] sulfamethoxazole-trimethoprim (BACTRIM DS) 800-160 mg per tabletTake 1 tablet by mouth twice daily for 3 days.Disp: 6 tabletRfl: 0 URINE CULTURE [SQURCUL] Order #: [id number] Prescriptions as of 02/22/2018 Sig: SULFAMETHOXAZOLE 800 MG-TRIME* Take 1 tablet by mouth twice * FLUTICASONE 50 MCG/ACTUATION * Use 2 Sprays in each nostril * CETIRIZINE 10 MG TABLET Take 1 tablet by mouth once d* FLUOXETINE 40 MG CAPSULE Take 40 mg by mouth once bela* GABAPENTIN 300 MG CAPSULE 2 capsules three times daily DESOGESTREL-E.ESTRADIOL 0.15 * Take 1 tablet by mouth once d* LANSOPRAZOLE 30 MG CAPSULE,DE* Take 1 capsule by mouth once * More... Problem List As Of Date 02/22/2018 Noted Resolved Routine gynecological examination [Z01.419] INVALID FOR* Priority: B Class: Chronic More... Kidney stones [N20.0] INVALID FOR* Priority: B More... Fibromyalgia [M79.7] INVALID FOR* Priority: A More... Obesity [E66.9] INVALID FOR* More... Family hx of colon cancer [Z80.0] INVALID FOR* More... Chronic interstitial cystitis [N30.10] INVALID FOR* Abdominal pain, unspecified site [R10.9] INVALID FOR* Rectal bleeding [K62.5] INVALID FOR* Other instructions from your clinician: To see PCP for BP recheck Prescriptions ordered this encounter Disp Refills Start End SULFAMETHOXAZOLE 800 MG-TRIMETHOPRIM* 6 ta* 0 02/22/2018 02/25/2018 Route: ORAL Sig: Take 1 tablet by mouth twice daily for 3 days. Follow-up and Disposition History Recorded Questionnaire: AUA QUESTIONNAIRE TIMES IN THE PAST MONTH YOU HAD A FEELING OF NOT EMPTYING BLADDER? -> 0 TIMES IN PAST MONTH NEED TO URINATE AGAIN WITHIN 2 HRS OF LAST EMPTY? -> 5 TIMES IN PAST MONTH YOU HAVE STOPPED AND STARTED URINE FLOW? -> 1 TIMES IN THE PAST MONTH YOU FOUND IT DIFFICULT TO POSTPONE URINATING? -> 5 TIMES IN THE PAST MONTH YOU HAVE HAD A WEAK URINARY STREAM? -> 2 TIMES IN PAST MONTH YOU HAVE HAD TO PUSH OR STRAIN TO URINATE? -> 0 TIMES IN PAST MONTH YOU GET UP TO URINATE FROM SLEEP UNTIL AWAKE? -> 0 HOW WOULD YOU FEEL IF YOU HAD TO LIVE WITH YOUR URINARY CONDITION IT IS NOW? * WHAT IT THE TOTAL AUA SCORE? -> 15 Encounter Status:Closed by KULDEEP LI PA-C on 02/22/18 Observed: 02/22/2018 Status: F Source: [place] URINE CULTURE 12:47 AM [facility] REPOSITORY Sp. Request/Comment: - Low [place] Count Presurgical Sterilization Specimen received in preservative PLEASE ADD FOSFOMYCIN TO SENSITIVITY Culture Result - >=100,000 CFU/ml Escherichia coli --> ABNORMAL ALERT Testing or reporting of additional agents was requested. ORGANISM: Escherichia coli METHOD: Minimum inhibitory concentration(Vitek) Antibiotic Interp LINDA Status Ampicillin RESISTANT >=32 F Gentamicin SUSCEPTIBLE <=1 F Trimeth sulfameth SUSCEPTIBLE <=20 F Cefazolin SUSCEPTIBLE <=4 F CLSI breakpoints for therapy of uncomplicated UTI's due to E.coli, K.pneumoniae, and P.mirabilis were applied and may be used to predict the activity of oral agents(cefaclor, cefdinir, cefpodoxime, cefp rozil, cefuroxime, cephalexin, loracarbef). Ciprofloxacin SUSCEPTIBLE <=0.25 F Nitrofurantoin SUSCEPTIBLE <=16 F Cefepime SUSCEPTIBLE <=1 F Piperacillin/Tazobac SUSCEPTIBLE <=4 F Ampicillin Sulbact INTERMEDIATE 16 F Ceftriaxone SUSCEPTIBLE <=1 F Meropenem SUSCEPTIBLE <=0.25 F Ertapenem SUSCEPTIBLE <=0.5 F ORGANISM: Escherichia coli METHOD: LINDA Antibiotic Interp LINDA Status Fosfomycin SUSCEPTIBLE 1.0 F The FDA indication for fosfomycin tromethamine is uncomplicated UTIs caused by E. faecalis and E. coli only. Performed By: #### URDEBORAH #### [facility] [address] [place], [place] [address] CNPN Observed: 02/22/2018 Status: COMPLETED Source: [place] 12:00 AM [facility] REPOSITORY Telephone (UROOpTripWS) SUNI TRINIDAD ([id number]) 1970 F Date Time Provider Department 02/22/18 KULDEEP LI) UROLWS During your visit today, we recorded the following information about you: Liliam Pate RN 02/22/2018 3:34 PM Signed Patient Was seen in the office this morning and prescribed bactrim. She called and stated that she took one dose of the Bactrim and has broken out in a rash with itching and irritation in her throat. She took 2 Benadryl. I instructed her to go to the ER if she has symptoms of difficulty breathing. Please advise as to what antibiotic she should take now. JONNIE White RN 02/22/2018 4:53 PM Signed I am going to wait and see what the culture shows on Sunday. If she is having fever and chill she needs to go to ED or urgent car over the weekend Kuldeep Li, MPAS, [place], CAREN Judd LPN 02/23/2018 10:43 AM Signed Pt notified. Allergies As of Date: 02/22/2018 Noted Allergy Reaction HYDROCODONE-ACETAMINOPHEN 02/16/2016 9 - Itching IMITREX (SUMATRIPTAN) 09/19/2005 8 - GI Upset TRAMADOL 02/16/2016 9 - Itching ZOMIG (ZOLMITRIPTAN) 09/19/2005 Date Reviewed: 01/16/2018 Reviewed by: Yisel Bernard LPN - Fully Assessed Reason for Visit: Question [1327] Prescriptions as of 02/22/2018 Sig: SULFAMETHOXAZOLE 800 MG-TRIME* Take 1 tablet by mouth twice * FLUTICASONE 50 MCG/ACTUATION * Use 2 Sprays in each nostril * CETIRIZINE 10 MG TABLET Take 1 tablet by mouth once d* FLUOXETINE 40 MG CAPSULE Take 40 mg by mouth once bela* GABAPENTIN 300 MG CAPSULE 2 capsules three times daily DESOGESTREL-E.ESTRADIOL 0.15 * Take 1 tablet by mouth once d* LANSOPRAZOLE 30 MG CAPSULE,DE* Take 1 capsule by mouth once * More... Problem List As Of Date 02/22/2018 Noted Resolved Routine gynecological examination [Z01.419] INVALID FOR* Priority: B Class: Chronic More... Kidney stones [N20.0] INVALID FOR* Priority: B More... Fibromyalgia [M79.7] INVALID FOR* Priority: A More... Obesity [E66.9] INVALID FOR* More... Family hx of colon cancer [Z80.0] INVALID FOR* More... Chronic interstitial cystitis [N30.10] INVALID FOR* Abdominal pain, unspecified site [R10.9] INVALID FOR* Rectal bleeding [K62.5] INVALID FOR* Encounter Status:Closed by KULDEEP LI PA-C on 02/22/18 PROGRESS Observed: 01/16/2018 Status: COMPLETED Source: [place] 8:55 PM [facility] RE[facility] HNO ID: [id number] Author: Britany Mayberry Service: (none) Author Type: Nurse Practitioner Type: Progress Notes Filed: 01/16/2018 9:01 PM Note Text: Subjective HPI Pt presents with c/o intermittent urinary frequency and dysuria x 5 days. Denies fever, chills, abd/flank/back pain. Evaluated frequently for urinary complaints. Last several urine cultures were negative for UTI. States she was established with a urologist about 10 years ago and was being treated for IC. Review of Systems Constitutional: Negative for chills and fever. Gastrointestinal: Negative for abdominal pain, constipation, diarrhea, nausea and vomiting. Genitourinary: Positive for dysuria and frequency. Negative for flank pain, hematuria and urgency. Musculoskeletal: Negative for back pain and myalgias. Objective Physical Exam Constitutional: She is oriented to person, place, and time and well-developed, well-nourished, and in no distress. No distress. Abdominal: There is no CVA tenderness. Neurological: She is alert and oriented to person, place, and time. Skin: Skin is warm and dry. She is not diaphoretic. BP 162/90 Pulse 92 Temp 37.1 ?C (98.7 ?F) (Tympanic) Resp 18 Wt 101.5 kg (223 lb 12.8 oz) BMI 37.24 kg/m? .Patient presents with: burning and frequency with urination, nausea: x 5 days PAST MEDICAL HISTORY Diagnosis Date - Fibromyalgia - innerstitial cystiti - Other forms of migraine 1994 with aura - Urinary tract infection, site not specified RECURRENT PAST SURGICAL HISTORY Procedure Laterality Date - PAST SURGICAL HISTORY OF 2003 kidney stone removal/laser (Dr. Rachel) - REMOVAL GALLBLADDER 1999 LAPAROSCOPY (Dr. Og) ALLERGIES Hydrocodone-Acetaminophen; Imitrex [Sumatriptan]; Tramadol; Zomig [Zolmitriptan] MEDICATIONS fluticasone (FLONASE) 50 mcg/actuation nasal spray Use 2 Sprays in each nostril once daily. Rinse mouth after use. cetirizine (ZYRTEC) 10 mg tablet Take 1 tablet by mouth once daily. FLUoxetine HCl (PROZAC) 40 mg capsule Take 40 mg by mouth once daily. gabapentin (NEURONTIN) 300 mg capsule 2 capsules three times daily Desogestrel-Ethinyl Estradiol (KARIVA) 0.15-0.02mg x21 /0.01 mg x 5 ORAL per tablet Take 1 tablet by mouth once daily. lansoprazole (PREVACID) 30 mg ORAL capsule Take 1 capsule by mouth once daily. FAMILY HISTORY Problem Relation Age of Onset - Colon Cancer Mother age 56-57 - Diabetes Maternal Grandmother - Prostate Cancer Father Social History Substance Use Topics - Smoking status: Never Smoker - Smokeless tobacco: Never Used - Alcohol use Yes Comment: moderately. maybe two drinks a week ASSESSMENT/PLAN: 1. Burning with urination - ICD9: 788.1, ICD10: R30.0 (primary diagnosis) acute - UA positive for trace kvng esterase - Send urine for culture - Patient education for prevention given - UA DIP B/O - URINE CULTURE 2. Dysuria-frequency syndrome - ICD9: 597.81, ICD10: N34.3 - CONSULT TO UROLOGY PSR assisting pt in scheduling this visit. The patient is instructed to return or seek emergency treatment if symptoms become worse or with any acute change in condition. The patient verbalizes understanding and is in agreement with plan of care. Britany Mayberry CNP Observed: 01/16/2018 Status: F Source: [place] URINE CULTURE 8:49 PM [facility] REPOSITORY Sp. Request/Comment: - Specimen received in preservative Culture Result - >=100,000 CFU/ml Escherichia coli --> ABNORMAL ALERT ORGANISM: Escherichia coli METHOD: Minimum inhibitory concentration(Vitek) Antibiotic Interp LINDA Status Ampicillin RESISTANT >=32 F Gentamicin SUSCEPTIBLE <=1 F Trimeth sulfameth SUSCEPTIBLE <=20 F Cefazolin SUSCEPTIBLE <=4 F CLSI breakpoints for therapy of uncomplicated UTI's due to E.coli, K.pneumoniae, and P.mirabilis were applied and may be used to predict the activity of oral agents(cefaclor, cefdinir, cefpodoxime, cefp rozil, cefuroxime, cephalexin, loracarbef). Ciprofloxacin SUSCEPTIBLE <=0.25 F Nitrofurantoin SUSCEPTIBLE <=16 F Cefepime SUSCEPTIBLE <=1 F Piperacillin/Tazobac SUSCEPTIBLE <=4 F Ampicillin Sulbact RESISTANT >=32 F Ceftriaxone SUSCEPTIBLE <=1 F Meropenem SUSCEPTIBLE <=0.25 F Ertapenem SUSCEPTIBLE <=0.5 F Performed By: #### URCUL #### [facility] [address] [place], [place] [address] CNOV Observed: 01/16/2018 Status: COMPLETED Source: [place] 8:30 PM [facility] REPOSITORY Office Visit (WSTR) SUNI TRINIDAD ([id number]) 1970 F Date Time Provider Department 01/16/18 8:30 PM BRITANY MAYBERRY [facility] During your visit today, we recorded the following information about you: Temperature Pulse Respiration Blood pressure 98.7 degrees 92/minute 18/minute 162/90 Weight 101.5 kg Britany Mayberry APRN.ASSISTED LIVING ASSOCIATE 01/16/2018 9:01 PM Signed Subjective HPI Pt presents with c/o intermittent urinary frequency and dysuria x 5 days. Denies fever, chills, abd/flank/back pain. Evaluated frequently for urinary complaints. Last several urine cultures were negative for UTI. States she was established with a urologist about 10 years ago and was being treated for IC. Review of Systems Constitutional: Negative for chills and fever. Gastrointestinal: Negative for abdominal pain, constipation, diarrhea, nausea and vomiting. Genitourinary: Positive for dysuria and frequency. Negative for flank pain, hematuria and urgency. Musculoskeletal: Negative for back pain and myalgias. Objective Physical Exam Constitutional: She is oriented to person, place, and time and well-developed, well-nourished, and in no distress. No distress. Abdominal: There is no CVA tenderness. Neurological: She is alert and oriented to person, place, and time. Skin: Skin is warm and dry. She is not diaphoretic. BP 162/90 Pulse 92 Temp 37.1 ?C (98.7 ?F) (Tympanic) Resp 18 Wt 101.5 kg (223 lb 12.8 oz) BMI 37.24 kg/m? .Patient presents with: burning and frequency with urination, nausea: x 5 days PAST MEDICAL HISTORY Diagnosis Date - Fibromyalgia - innerstitial cystiti - Other forms of migraine 1994 with aura - Urinary tract infection, site not specified RECURRENT PAST SURGICAL HISTORY Procedure Laterality Date - PAST SURGICAL HISTORY OF 2003 kidney stone removal/laser (Dr. Rachel) - REMOVAL GALLBLADDER 1999 LAPAROSCOPY (Dr. Og) ALLERGIES Hydrocodone-Acetaminophen; Imitrex [Sumatriptan]; Tramadol; Zomig [Zolmitriptan] MEDICATIONS fluticasone (FLONASE) 50 mcg/actuation nasal spray Use 2 Sprays in each nostril once daily. Rinse mouth after use. cetirizine (ZYRTEC) 10 mg tablet Take 1 tablet by mouth once daily. FLUoxetine HCl (PROZAC) 40 mg capsule Take 40 mg by mouth once daily. gabapentin (NEURONTIN) 300 mg capsule 2 capsules three times daily Desogestrel-Ethinyl Estradiol (KARIVA) 0.15-0.02mg x21 /0.01 mg x 5 ORAL per tablet Take 1 tablet by mouth once daily. lansoprazole (PREVACID) 30 mg ORAL capsule Take 1 capsule by mouth once daily. FAMILY HISTORY Problem Relation Age of Onset - Colon Cancer Mother age 56-57 - Diabetes Maternal Grandmother - Prostate Cancer Father Social History Substance Use Topics - Smoking status: Never Smoker - Smokeless tobacco: Never Used - Alcohol use Yes Comment: moderately. maybe two drinks a week ASSESSMENT/PLAN: 1. Burning with urination - ICD9: 788.1, ICD10: R30.0 (primary diagnosis) acute - UA positive for trace kvng esterase - Send urine for culture - Patient education for prevention given - UA DIP B/O - URINE CULTURE 2. Dysuria-frequency syndrome - ICD9: 597.81, ICD10: N34.3 - CONSULT TO UROLOGY PSR assisting pt in scheduling this visit. The patient is instructed to return or seek emergency treatment if symptoms become worse or with any acute change in condition. The patient verbalizes understanding and is in agreement with plan of care. Britany Mayberry CNP Referring Provider: SELF [[id number]] Allergies As of Date: 01/16/2018 Noted Allergy Reaction HYDROCODONE-ACETAMINOPHEN 02/16/2016 9 - Itching IMITREX (SUMATRIPTAN) 09/19/2005 8 - GI Upset TRAMADOL 02/16/2016 9 - Itching ZOMIG (ZOLMITRIPTAN) 09/19/2005 Date Reviewed: 01/16/2018 Reviewed by: Yisel Bernard LPN - Fully Assessed Reason for Visit: burning and frequency with urination, nausea [Other] Cmt: x 5 days Primary Visit Diagnosis:Burning with urination [R30.0] Other Visit Diagnosis:Dysuria-frequency syndrome [N34.3] Order(s):UA DIP B/O [7881795] Order #: [id number] URINE CULTURE [SQURCUL] Order #: [id number] CONSULT TO UROLOGY [9041] Order #: [id number]: 1 Prescriptions as of 01/16/2018 Sig: FLUTICASONE 50 MCG/ACTUATION * Use 2 Sprays in each nostril * CETIRIZINE 10 MG TABLET Take 1 tablet by mouth once d* FLUOXETINE 40 MG CAPSULE Take 40 mg by mouth once bela* GABAPENTIN 300 MG CAPSULE 2 capsules three times daily DESOGESTREL-E.ESTRADIOL 0.15 * Take 1 tablet by mouth once d* LANSOPRAZOLE 30 MG CAPSULE,DE* Take 1 capsule by mouth once * More... Problem List As Of Date 01/16/2018 Noted Resolved Routine gynecological examination [Z01.419] INVALID FOR* Priority: B Class: Chronic More... Kidney stones [N20.0] INVALID FOR* Priority: B More... Fibromyalgia [M79.7] INVALID FOR* Priority: A More... Obesity [E66.9] INVALID FOR* More... Family hx of colon cancer [Z80.0] INVALID FOR* More... Chronic interstitial cystitis [N30.10] INVALID FOR* Abdominal pain, unspecified site [R10.9] INVALID FOR* Rectal bleeding [K62.5] INVALID FOR* Encounter Status:Closed by BRITANY MAYBERRY CNP on 01/16/18 Observed: 11/15/2017 Status: F Source: [place] URINE CULTURE 11:05 AM [facility] [place] REPOSITORY Sp. Request/Comment: - Specimen received in preservative Culture Result - 50,000 - <100,000 CFU/ml Escherichia coli --> ABNORMAL ALERT ORGANISM: Escherichia coli METHOD: Minimum inhibitory concentration(Vitek) Antibiotic Interp LINDA Status Ampicillin RESISTANT >=32 F Gentamicin SUSCEPTIBLE <=1 F Trimeth sulfameth SUSCEPTIBLE <=20 F Cefazolin SUSCEPTIBLE <=4 F CLSI breakpoints for therapy of uncomplicated UTI's due to E.coli, K.pneumoniae, and P.mirabilis were applied and may be used to predict the activity of oral agents(cefaclor, cefdinir, cefpodoxime, cefp rozil, cefuroxime, cephalexin, loracarbef). Ciprofloxacin SUSCEPTIBLE <=0.25 F Nitrofurantoin SUSCEPTIBLE <=16 F Cefepime SUSCEPTIBLE <=1 F Piperacillin/Tazobac SUSCEPTIBLE <=4 F Ampicillin Sulbact INTERMEDIATE 16 F Ceftriaxone SUSCEPTIBLE <=1 F Meropenem SUSCEPTIBLE <=0.25 F Ertapenem SUSCEPTIBLE <=0.5 F Performed By: #### URCUL #### [facility] [address] [address] PROGRESS Observed: 11/15/2017 Status: COMPLETED Source: [place] 11:00 AM [facility] REPOSITORY HNO ID: [id number] Author: Cathleen ([facility]) Rayo Service: (none) Author Type: Nurse Practitioner Type: Progress Notes Filed: 11/15/2017 11:31 AM Note Text: Subjective HPI Suni Trinidad is a 46 year old female who presents with dysuria, frequency, urgency, and nausea for the past 4 days. She denies back pain or abdominal pain. She has taken ibuprofen for a headache. Review of Systems Constitutional: Negative. Negative for chills and fever. Gastrointestinal: Positive for nausea. Negative for abdominal pain. Genitourinary: Positive for dysuria, frequency and urgency. Negative for flank pain and hematuria. Musculoskeletal: Negative for back pain. Neurological: Positive for headaches. BP 146/84 Pulse 86 Temp 36.8 ?C (98.3 ?F) (Tympanic) Resp 18 Wt 99.5 kg (219 lb 6.4 oz) BMI 36.51 kg/m? PAST MEDICAL HISTORY Diagnosis Date - Fibromyalgia - innerstitial cystiti - Other forms of migraine 1994 with aura - Urinary tract infection, site not specified RECURRENT PAST SURGICAL HISTORY Procedure Laterality Date - PAST SURGICAL HISTORY OF 2003 kidney stone removal/laser (Dr. Rachel) - REMOVAL GALLBLADDER 2000 LAPAROSCOPY (Dr. Og) ALLERGIES Hydrocodone-Acetaminophen; Imitrex [Sumatriptan]; Tramadol; Zomig [Zolmitriptan] MEDICATIONS fluticasone (FLONASE) 50 mcg/actuation nasal spray Use 2 Sprays in each nostril once daily. Rinse mouth after use. cetirizine (ZYRTEC) 10 mg tablet Take 1 tablet by mouth once daily. FLUoxetine HCl (PROZAC) 40 mg capsule Take 40 mg by mouth once daily. gabapentin (NEURONTIN) 300 mg capsule 2 capsules three times daily Desogestrel-Ethinyl Estradiol (KARIVA) 0.15-0.02mg x21 /0.01 mg x 5 ORAL per tablet Take 1 tablet by mouth once daily. lansoprazole (PREVACID) 30 mg ORAL capsule Take 1 capsule by mouth once daily. FAMILY HISTORY Problem Relation Age of Onset - Colon Cancer Mother age 56-57 - Diabetes Maternal Grandmother - Prostate Cancer Father Social History Substance Use Topics - Smoking status: Never Smoker - Smokeless tobacco: Never Used - Alcohol use Yes Comment: moderately. maybe two drinks a week Objective Physical Exam Constitutional: She is well-developed, well-nourished, and in no distress. HENT: Right Ear: Tympanic membrane, external ear and ear canal normal. Left Ear: Tympanic membrane, external ear and ear canal normal. Nose: Nose normal. No rhinorrhea. Mouth/Throat: Uvula is midline, oropharynx is clear and moist and mucous membranes are normal. Mucous membranes are not pale and not dry. No posterior oropharyngeal edema or posterior oropharyngeal erythema. Cardiovascular: Normal rate, regular rhythm and normal heart sounds. Pulmonary/Chest: Effort normal and breath sounds normal. Abdominal: Soft. She exhibits no distension and no mass. There is no tenderness. There is no guarding. Neurological: She is alert. Skin: Skin is warm and dry. Nursing note and vitals reviewed. ASSESSMENT/PLAN: 1. Acute cystitis with hematuria - ICD9: 595.0, ICD10: N30.01 (primary diagnosis) - CEPHALEXIN 500 MG CAPSULE 2. Burning with urination - ICD9: 788.1, ICD10: R30.0 acute - UA positive for kvng esterase, hematuria and proteinuria - Send urine for culture - Begin treatment with Keflex for 7 days - Patient education for prevention given - UA DIP B/O - URINE CULTURE - Follow-up with your PCP in 3-5 days if symptoms have not improved or sooner if symptoms worsen - Discussed red flags and need for immediate medical evaluation if any occur. - Discussed supportive care treatment with fluids, rest and analgesia. - Discussed expected course of illness Cathleen Cox APRN.CNP CNOV Observed: 11/15/2017 Status: COMPLETED Source: [place] 10:45 AM [facility] REPOSITORY Office Visit (WSTR) VIVISUNI Crowe ([id number]) 1970 F Date Time Provider Department 11/15/17 10:45 AM CATHLEEN COX (ASSISTED LIVING ASSOCIATE) [facility] During your visit today, we recorded the following information about you: Temperature Pulse Respiration Blood pressure 98.3 degrees 86/minute 18/minute 146/84 Weight 99.5 kg Cathleen Cox APRN.CNP 11/15/2017 11:31 AM Signed Subjective HPI Suni Trinidad is a 46 year old female who presents with dysuria, frequency, urgency, and nausea for the past 4 days. She denies back pain or abdominal pain. She has taken ibuprofen for a headache. Review of Systems Constitutional: Negative. Negative for chills and fever. Gastrointestinal: Positive for nausea. Negative for abdominal pain. Genitourinary: Positive for dysuria, frequency and urgency. Negative for flank pain and hematuria. Musculoskeletal: Negative for back pain. Neurological: Positive for headaches. BP 146/84 Pulse 86 Temp 36.8 ?C (98.3 ?F) (Tympanic) Resp 18 Wt 99.5 kg (219 lb 6.4 oz) BMI 36.51 kg/m? PAST MEDICAL HISTORY Diagnosis Date - Fibromyalgia - innerstitial cystiti - Other forms of migraine 1994 with aura - Urinary tract infection, site not specified RECURRENT PAST SURGICAL HISTORY Procedure Laterality Date - PAST SURGICAL HISTORY OF 2003 kidney stone removal/laser (Dr. Rachel) - REMOVAL GALLBLADDER 1999 LAPAROSCOPY (Dr. Og) ALLERGIES Hydrocodone-Acetaminophen; Imitrex [Sumatriptan]; Tramadol; Zomig [Zolmitriptan] MEDICATIONS fluticasone (FLONASE) 50 mcg/actuation nasal spray Use 2 Sprays in each nostril once daily. Rinse mouth after use. cetirizine (ZYRTEC) 10 mg tablet Take 1 tablet by mouth once daily. FLUoxetine HCl (PROZAC) 40 mg capsule Take 40 mg by mouth once daily. gabapentin (NEURONTIN) 300 mg capsule 2 capsules three times daily Desogestrel-Ethinyl Estradiol (KARIVA) 0.15-0.02mg x21 /0.01 mg x 5 ORAL per tablet Take 1 tablet by mouth once daily. lansoprazole (PREVACID) 30 mg ORAL capsule Take 1 capsule by mouth once daily. FAMILY HISTORY Problem Relation Age of Onset - Colon Cancer Mother age 56-57 - Diabetes Maternal Grandmother - Prostate Cancer Father Social History Substance Use Topics - Smoking status: Never Smoker - Smokeless tobacco: Never Used - Alcohol use Yes Comment: moderately. maybe two drinks a week Objective Physical Exam Constitutional: She is well-developed, well-nourished, and in no distress. HENT: Right Ear: Tympanic membrane, external ear and ear canal normal. Left Ear: Tympanic membrane, external ear and ear canal normal. Nose: Nose normal. No rhinorrhea. Mouth/Throat: Uvula is midline, oropharynx is clear and moist and mucous membranes are normal. Mucous membranes are not pale and not dry. No posterior oropharyngeal edema or posterior oropharyngeal erythema. Cardiovascular: Normal rate, regular rhythm and normal heart sounds. Pulmonary/Chest: Effort normal and breath sounds normal. Abdominal: Soft. She exhibits no distension and no mass. There is no tenderness. There is no guarding. Neurological: She is alert. Skin: Skin is warm and dry. Nursing note and vitals reviewed. ASSESSMENT/PLAN: 1. Acute cystitis with hematuria - ICD9: 595.0, ICD10: N30.01 (primary diagnosis) - CEPHALEXIN 500 MG CAPSULE 2. Burning with urination - ICD9: 788.1, ICD10: R30.0 acute - UA positive for kvng esterase, hematuria and proteinuria - Send urine for culture - Begin treatment with Keflex for 7 days - Patient education for prevention given - UA DIP B/O - URINE CULTURE - Follow-up with your PCP in 3-5 days if symptoms have not improved or sooner if symptoms worsen - Discussed red flags and need for immediate medical evaluation if any occur. - Discussed supportive care treatment with fluids, rest and analgesia. - Discussed expected course of illness NIK Harris APRN.CNP 11/15/2017 11:06 AM Signed [facility] PATIENT INFO BLADDER INFECTION OVERVIEW Bladder infections are one of the most common infections, causing symptoms of burning with urination and needing to urinate frequently. A bladder infection is a type of urinary tract infection (UTI). Bladder infections are more common is women than men. Most women have an uncomplicated bladder infection that is easily treated with a short course of antibiotics. In men, bladder infections may also affect the prostate gland, and a longer course of treatment may be needed. BLADDER INFECTION CAUSES The urinary tract includes the kidneys (which filter urine), ureters (the tube that carries urine from the kidneys to the bladder), the bladder (which stores urine), and urethra (the tube that carries urine out of the bladder). Bacteria do not normally live in these areas. However, bacteria normally live close to the urethra in women and men who are not circumcised. Bladder infections occur when bacteria travel up the urethra into the bladder. Factors that increase the risk of developing a bladder infection include: ? Vaginal sex ? Use of spermicides ? History of past bladder infections ? Diabetes In men, not being circumcised or having anal sex increase the risk of bladder infections. BLADDER INFECTION SYMPTOMS The typical symptoms of a bladder infection include: ? Pain or burning when urinating ? Frequent need to urinate ? Urgent need to urinate ? Blood in the urine Fever, back pain, nausea, or vomiting are not common symptoms of a bladder infection, but can occur in people with a kidney infection (pyelonephritis). If you have these symptoms, you should call your doctor or nurse immediately. Is it a bladder infection or something else? ? Burning with urination can also occur in people with vaginitis (eg, yeast infection) or urethritis (inflammation of the urethra). For this reason, it is important to call your healthcare provider before assuming you have a bladder infection. BLADDER INFECTION DIAGNOSIS Simple bladder infections are usually diagnosed based upon your symptoms alone. However, most patients, especially those who have bladder infection symptoms for the first time, should see a healthcare provider for urine testing. Urine culture ? A urine culture is a test that uses a sample of urine to try and grow bacteria in a laboratory. It usually requires about 48 hours to get results. However, a urine culture is not always required to diagnose a bladder infection. Urine culture is often recommended if: ? You have never had a bladder infection before ? You have symptoms that are not typical for bladder infection ? You have had resistant bladder infections before ? You have frequent bladder infections ? You do not begin to feel better within 24 to 48 hours after starting antibiotics ? You are BLADDER INFECTION TREATMENT Bladder infection ? In young, healthy adolescents and adults with a bladder infection, the usual treatment includes a three to seven day course of antibiotics. The typical drugs chosen are: trimethoprim-sulfamethoxazole (Bactrim?), nitrofurantoin (Macrobid?), ciprofloxacin (Cipro?) or levofloxacin (Levaquin?). In men, the infection may involve your prostate gland and treatment is usually given for at least 7 days. Your symptoms should begin to resolve within one day after starting treatment. It is important to take the full course of antibiotics to completely eliminate the infection. If your symptoms persist for more than two or three days after starting treatment, call your healthcare provider. If needed, you can take a prescription medication that numbs the bladder and urethra (phenazopyridine [Pyridium?]) to reduce the burning pain of some UTIs. A similar medication is available without a prescription (eg, Uristat). Both medications change the color of the urine (usually blue or orange) and can interfere with laboratory testing. You should not take these medications for more than 48 hours due to the risk of side effects. These medications do not treat the infection and must be taken along with an antibiotic. Some providers recommend drinking more fluids while treating bladder infections to help flush bacteria from the bladder. Others believe that drinking more fluids may dilute the antibiotic in the bladder and make the medication less effective. No studies have been performed to address this issue. There are also no good studies on the effectiveness of cranberry juice for treating a bladder infection; we do not recommend using cranberry juice to treat bladder infections. Follow-up care ? Follow-up testing is not needed in healthy, young men or women with a bladder infection if symptoms resolve. women are usually asked to have a repeat urine culture one to two weeks after treatment has ended to make sure the bacteria are no longer in the urine. RECURRENT BLADDER INFECTIONS Bladder infections versus other causes ? Some adults, especially women, develop bladder infections frequently. In this case, it is important to confirm that your symptoms (eg, pain or burning, frequency, and urgency) are caused by a bladder infection. Symptoms are usually similar from one infection to another. The best way to confirm an infection is to have a urine culture. If your urine culture is negative for infection, other causes of pain, burning, and frequency should be investigated. There is no reason to take antibiotics if your urine culture is negative. Need for further testing ? If you continue to develop bladder infections, you may require further testing. If you continue to notice blood in your urine after your bladder infection has cleared, you should have further testing. Preventing recurrent UTIs ? Women with recurrent urinary tract infections may be advised to take steps to prevent bladder infections, including one or more of the following: Changes in control ? Women who develop frequent bladder infections and use spermicides, particularly those who also use a diaphragm, may be encouraged to use an alternate method of control. Cranberry products ? Taking cranberry juice or cranberry tablets has been promoted as one way to help prevent frequent bladder infections. However, this has not been proven. Drinking more fluid and urinating after intercourse ? Although studies have not proven that drinking more fluids or urinating soon after intercourse can prevent infection, some healthcare providers recommend these measures since they are not harmful. Drinking more fluid may help to wash out bacteria that enter the bladder. Postmenopausal women ? Postmenopausal women who develop recurrent bladder infections may benefit from using vaginal estrogen. Vaginal estrogen is available in a flexible ring that is worn in the vagina for three months (eg, Estring?), a small tablet (Vagifem?), or a cream (eg, Premarin? or Estrace?). Vaginal estrogen is discussed in more detail in a separate topic review. Antibiotics ? A preventive antibiotic treatment may be recommended if you repeatedly develop bladder infections and have not responded to other preventive measures. Antibiotics are highly effective in preventing recurrent bladder infections and can be taken in several different ways. ? Preventive antibiotic ? You can take a low dose of an antibiotic once per day or three times per week for six months to several years. ? Antibiotics following intercourse ? In women who develop urinary tract infections after sex, taking a single low dose antibiotic after intercourse can help to prevent bladder infections. ? Self-treatment ? A plan to begin antibiotics at the first sign of a bladder infection may be recommended in some situations. Before starting this regimen, it is important that you have had testing (urine cultures) to confirm that your symptoms are caused by a bladder infection; some people have symptoms of a bladder infection but do not actually have an infection. Referring Provider: SELF [[id number]] Allergies As of Date: 11/15/2017 Noted Allergy Reaction HYDROCODONE-ACETAMINOPHEN 02/16/2016 9 - Itching IMITREX (SUMATRIPTAN) 09/19/2005 8 - GI Upset TRAMADOL 02/16/2016 9 - Itching ZOMIG (ZOLMITRIPTAN) 09/19/2005 Date Reviewed: 11/15/2017 Reviewed by: Cathleen ([facility]) Rayo - Fully Assessed Reason for Visit: burning, urgency and frequency with urination [Other] Cmt: x 4-5 days Primary Visit Diagnosis:Acute cystitis with hematuria [N30.01] Other Visit Diagnosis:Burning with urination [R30.0] Order(s):UA DIP B/O [3253114] Order #: [id number] URINE CULTURE [SQURCUL] Order #: [id number] cephALEXin (KEFLEX) 500 mg capsuleTake 1 capsule by mouth twice daily for 7 days.Disp: 14 capsuleRfl: 0 Prescriptions as of 11/15/2017 Sig: FLUTICASONE 50 MCG/ACTUATION * Use 2 Sprays in each nostril * CETIRIZINE 10 MG TABLET Take 1 tablet by mouth once d* FLUOXETINE 40 MG CAPSULE Take 40 mg by mouth once bela* GABAPENTIN 300 MG CAPSULE 2 capsules three times daily DESOGESTREL-E.ESTRADIOL 0.15 * Take 1 tablet by mouth once d* LANSOPRAZOLE 30 MG CAPSULE,DE* Take 1 capsule by mouth once * CEPHALEXIN 500 MG CAPSULE Take 1 capsule by mouth twice* More... Problem List As Of Date 11/15/2017 Noted Resolved Routine gynecological examination [Z01.419] INVALID FOR* Priority: B Class: Chronic More... Kidney stones [N20.0] INVALID FOR* Priority: B More... Fibromyalgia [M79.7] INVALID FOR* Priority: A More... Obesity [E66.9] INVALID FOR* More... Family hx of colon cancer [Z80.0] INVALID FOR* More... Chronic interstitial cystitis [N30.10] INVALID FOR* Abdominal pain, unspecified site [R10.9] INVALID FOR* Rectal bleeding [K62.5] INVALID FOR* Other instructions from your clinician: EXPRESS CARE PATIENT INFO BLADDER INFECTION OVERVIEW Bladder infections are one of the most common infections, causing symptoms of burning with urination and needing to urinate frequently. A bladder infection is a type of urinary tract infection (UTI). Bladder infections are more common is women than men. Most women have an uncomplicated bladder infection that is easily treated with a short course of antibiotics. In men, bladder infections may also affect the prostate gland, and a longer course of treatment may be needed. BLADDER INFECTION CAUSES The urinary tract includes the kidneys (which filter urine), ureters (the tube that carries urine from the kidneys to the bladder), the bladder (which stores urine), and urethra (the tube that carries urine out of the bladder). Bacteria do not normally live in these areas. However, bacteria normally live close to the urethra in women and men who are not circumcised. Bladder infections occur when bacteria travel up the urethra into the bladder. Factors that increase the risk of developing a bladder infection include: ? Vaginal sex ? Use of spermicides ? History of past bladder infections ? Diabetes In men, not being circumcised or having anal sex increase the risk of bladder infections. BLADDER INFECTION SYMPTOMS The typical symptoms of a bladder infection include: ? Pain or burning when urinating ? Frequent need to urinate ? Urgent need to urinate ? Blood in the urine Fever, back pain, nausea, or vomiting are not common symptoms of a bladder infection, but can occur in people with a kidney infection (pyelonephritis). If you have these symptoms, you should call your doctor or nurse immediately. Is it a bladder infection or something else? ? Burning with urination can also occur in people with vaginitis (eg, yeast infection) or urethritis (inflammation of the urethra). For this reason, it is important to call your healthcare provider before assuming you have a bladder infection. BLADDER INFECTION DIAGNOSIS Simple bladder infections are usually diagnosed based upon your symptoms alone. However, most patients, especially those who have bladder infection symptoms for the first time, should see a healthcare provider for urine testing. Urine culture ? A urine culture is a test that uses a sample of urine to try and grow bacteria in a laboratory. It usually requires about 48 hours to get results. However, a urine culture is not always required to diagnose a bladder infection. Urine culture is often recommended if: ? You have never had a bladder infection before ? You have symptoms that are not typical for bladder infection ? You have had resistant bladder infections before ? You have frequent bladder infections ? You do not begin to feel better within 24 to 48 hours after starting antibiotics ? You are BLADDER INFECTION TREATMENT Bladder infection ? In young, healthy adolescents and adults with a bladder infection, the usual treatment includes a three to seven day course of antibiotics. The typical drugs chosen are: trimethoprim-sulfamethoxazole (Bactrim?), nitrofurantoin (Macrobid?), ciprofloxacin (Cipro?) or levofloxacin (Levaquin?). In men, the infection may involve your prostate gland and treatment is usually given for at least 7 days. Your symptoms should begin to resolve within one day after starting treatment. It is important to take the full course of antibiotics to completely eliminate the infection. If your symptoms persist for more than two or three days after starting treatment, call your healthcare provider. If needed, you can take a prescription medication that numbs the bladder and urethra (phenazopyridine [Pyridium?]) to reduce the burning pain of some UTIs. A similar medication is available without a prescription (eg, Uristat). Both medications change the color of the urine (usually blue or orange) and can interfere with laboratory testing. You should not take these medications for more than 48 hours due to the risk of side effects. These medications do not treat the infection and must be taken along with an antibiotic. Some providers recommend drinking more fluids while treating bladder infections to help flush bacteria from the bladder. Others believe that drinking more fluids may dilute the antibiotic in the bladder and make the medication less effective. No studies have been performed to address this issue. There are also no good studies on the effectiveness of cranberry juice for treating a bladder infection; we do not recommend using cranberry juice to treat bladder infections. Follow-up care ? Follow-up testing is not needed in healthy, young men or women with a bladder infection if symptoms resolve. women are usually asked to have a repeat urine culture one to two weeks after treatment has ended to make sure the bacteria are no longer in the urine. RECURRENT BLADDER INFECTIONS Bladder infections versus other causes ? Some adults, especially women, develop bladder infections frequently. In this case, it is important to confirm that your symptoms (eg, pain or burning, frequency, and urgency) are caused by a bladder infection. Symptoms are usually similar from one infection to another. The best way to confirm an infection is to have a urine culture. If your urine culture is negative for infection, other causes of pain, burning, and frequency should be investigated. There is no reason to take antibiotics if your urine culture is negative. Need for further testing ? If you continue to develop bladder infections, you may require further testing. If you continue to notice blood in your urine after your bladder infection has cleared, you should have further testing. Preventing recurrent UTIs ? Women with recurrent urinary tract infections may be advised to take steps to prevent bladder infections, including one or more of the following: Changes in control ? Women who develop frequent bladder infections and use spermicides, particularly those who also use a diaphragm, may be encouraged to use an alternate method of control. Cranberry products ? Taking cranberry juice or cranberry tablets has been promoted as one way to help prevent frequent bladder infections. However, this has not been proven. Drinking more fluid and urinating after intercourse ? Although studies have not proven that drinking more fluids or urinating soon after intercourse can prevent infection, some healthcare providers recommend these measures since they are not harmful. Drinking more fluid may help to wash out bacteria that enter the bladder. Postmenopausal women ? Postmenopausal women who develop recurrent bladder infections may benefit from using vaginal estrogen. Vaginal estrogen is available in a flexible ring that is worn in the vagina for three months (eg, Estring?), a small tablet (Vagifem?), or a cream (eg, Premarin? or Estrace?). Vaginal estrogen is discussed in more detail in a separate topic review. Antibiotics ? A preventive antibiotic treatment may be recommended if you repeatedly develop bladder infections and have not responded to other preventive measures. Antibiotics are highly effective in preventing recurrent bladder infections and can be taken in several different ways. ? Preventive antibiotic ? You can take a low dose of an antibiotic once per day or three times per week for six months to several years. ? Antibiotics following intercourse ? In women who develop urinary tract infections after sex, taking a single low dose antibiotic after intercourse can help to prevent bladder infections. ? Self-treatment ? A plan to begin antibiotics at the first sign of a bladder infection may be recommended in some situations. Before starting this regimen, it is important that you have had testing (urine cultures) to confirm that your symptoms are caused by a bladder infection; some people have symptoms of a bladder infection but do not actually have an infection. Prescriptions ordered this encounter Disp Refills Start End CEPHALEXIN 500 MG CAPSULE 14 c* 0 11/15/2017 11/22/2017 Route: ORAL Sig: Take 1 capsule by mouth twice daily for 7 days. Medications Discontinued During This Encounter cephALEXin (KEFLEX) 500 mg capsule 14 c* 0 12/12/2016 11/15/2017 Route: ORAL Sig: Take 1 capsule by mouth twice daily for 7 days. Disc: Reason for discontinue is not on file. Encounter Status:Closed by CATHLEEN COX on 11/15/17 Observed: 10/31/2017 Status: F Source: [place] CULTURE, URINE 4:45 PM [facility] REPOSITORY Urine Culture ORGANISM 1: Presumptive E. coli [place] Count >100,000 Presumptive E. coli: REACTION Amoxacillin/Clavulanic Acid $ 4 S Ampicillin $ >=32 R Ampicillin/Sulbactam $ 16 I Cefazolin $ <=4 S Cefepime $ <=1 S Ceftriaxone $ <=1 S Ciprofloxacin $ <=0.25 S ESBL - Ertapenim $$$ <=0.5 S Gentamicin $ <=1 S Imipenem *NF <=0.25 S Levofloxacin $ <=0.12 S Nitrofurantoin $ <=16 S Piperacillin/Tazobactam $$ <=4 S Tobramycin $ <=1 S Trimethoprim/Sulfametho $ <=20 S (NF) indicates non-formulary drug at [facility]. Approval by Infectious Disease Specialist required before non-formulary drugs may be ordered and/or dispensed. Performed By: #### [id number] #### [facility] [place], [address] Observed: 10/15/2017 Status: F Source: [place] URINE CULTURE 12:06 PM [facility] [place] REPOSITORY Sp. Request/Comment: - Specimen received in preservative Culture Result - <10,000 CFU/ml Three or more organisms, no one type predominant, suggesting contamination during collection. Recollect if clinically indicated. Performed By: #### URCUL #### [facility] [address] [place], [place] [address] PROGRESS Observed: 10/15/2017 Status: COMPLETED Source: [place] 11:51 AM [facility] REPOSITORY HNO ID: [id number] Author: Shakeel Mendiola Service: (none) Author Type: Nurse Practitioner Type: Progress Notes Filed: 10/15/2017 12:11 PM Note Text: SUBJECTIVE: Suni Trinidad is a 46 year old female. Who presents today with concerns for a UTI. She has these infections several times a year. Frequency of urine + suprapubic pain R flank aching. No burning no blood in urine. She states that she is also raw down there from wiping. Symptoms started on Sunday. She denies fever abd pain v cp and sob HPI PAST MEDICAL HISTORY Diagnosis Date - Fibromyalgia - innerstitial cystiti - Other forms of migraine 1994 with aura - Urinary tract infection, site not specified RECURRENT FAMILY HISTORY Problem Relation Age of Onset - Colon Cancer Mother age 56-57 - Diabetes Maternal Grandmother - Prostate Cancer Father Social History Substance Use Topics - Smoking status: Never Smoker - Smokeless tobacco: Never Used - Alcohol use Yes Comment: moderately. maybe two drinks a week ALLERGIES Allergen Reactions - Hydrocodone-Acetami* Itching - Imitrex [Sumatripta* GI Upset - Tramadol Itching - Zomig [Zolmitriptan] Current Outpatient Prescriptions: fluticasone (FLONASE) 50 mcg/actuation nasal spray Use 2 Sprays in each nostril once daily. Rinse mouth after use. Disp: 1 Bottle Rfl: 1 cetirizine (ZYRTEC) 10 mg tablet Take 1 tablet by mouth once daily. Disp: 30 tablet Rfl: 0 FLUoxetine HCl (PROZAC) 40 mg capsule Take 40 mg by mouth once daily. Disp: Rfl: gabapentin (NEURONTIN) 300 mg capsule 2 capsules three times daily Disp: 180 capsule Rfl: 5 Desogestrel-Ethinyl Estradiol (KARIVA) 0.15-0.02mg x21 /0.01 mg x 5 ORAL per tablet Take 1 tablet by mouth once daily. Disp: 1 Package Rfl: 12 lansoprazole (PREVACID) 30 mg ORAL capsule Take 1 capsule by mouth once daily. Disp: Rfl: 0 No current facility-administered medications for this visit. OBJECTIVE: BP 128/72 Pulse 68 Temp 36.3 ?C (97.3 ?F) (Tympanic) Resp 16 Wt 98.9 kg (218 lb) LMP 09/24/2017 BMI 36.28 kg/m2 ROS all other systems reviewed and are negative Physical Exam Constitutional: Well developed, well nourished, NAD, alert and oriented to person , place and time, in no apparent distress. ENT: Head is atraumatic, airway patent, mucosal membranes moist. Eyes: EOMI, PERRL, no drainage, vision unchanged Neck: supple with no palpable lymph nodes, no midline tenderness Cardiac: Normal rate and rhythm. Heart sounds S1, S2. No murmurs, rubs or gallops. Chest: nontender Respiratory: No retractions or use of accessory muscles. Breath sounds clear and equal bilaterally. GI: Abdomen soft and non-distended, without tenderness, rebound or guarding. Bowel sounds normal. : no CVA tenderness MS: no swelling tenderness or deformity in upper or lower extremities, no midline tenderness in thoracic or lumbar spine. Neuro: strength sensation and coordination intact. CN II-XII grossly intact, Skin: warm and dry with out rash, lesion or ecchymosis Psych: alert appropriate, speech clear It was a pleasure to take care of Suni Trinidad today. Her urine dip is positive for blood protein and leuks. There for I will treat her with macrobid For the areas that are raw I have encouraged her to wash with soap and keep the area clean and dry Patient will follow up with family physician. They may return to the Urgent Care or go to the ER for worsening symptoms or concerns. Patient verbalized understanding of plan of care and is in agreement. ASSESSMENT/PLAN: 1. Urinary frequency - ICD9: 788.41, ICD10: R35.0 Shakeel Mendiola APRN.PORTER ASSESSMENT/PLAN: 1. Urinary frequency - ICD9: 788.41, ICD10: R35.0 (primary diagnosis) - UA DIP B/O - URINE CULTURE - NITROFURANTOIN MONOHYDRATE AND MACROCRYSTAL 100 MG ORAL CAP 2. Recurrent UTI (urinary tract infection) - ICD9: 599.0, ICD10: N39.0 - UA DIP B/O - URINE CULTURE - NITROFURANTOIN MONOHYDRATE AND MACROCRYSTAL 100 MG ORAL CAP Shakeel Mendiola APRN.CNP CNOV Observed: 10/15/2017 Status: COMPLETED Source: [place] 11:30 AM [facility] REPOSITORY Office Visit (WSTR) SUNI TRINIDAD ([id number]) 1970 F Date Time Provider Department 10/15/17 11:30 AM SHAKEEL MENDIOLA (PORTER) [facility] During your visit today, we recorded the following information about you: Temperature Pulse Respiration Blood pressure 97.3 degrees 68/minute 16/minute 128/72 Weight Last Period 98.9 kg 09/24/17 Shakeel Mendiola APRN.CNP 10/15/2017 12:11 PM Signed SUBJECTIVE: Suni Trinidad is a 46 year old female. Who presents today with concerns for a UTI. She has these infections several times a year. Frequency of urine + suprapubic pain R flank aching. No burning no blood in urine. She states that she is also raw down there from wiping. Symptoms started on Sunday. She denies fever abd pain v cp and sob HPI PAST MEDICAL HISTORY Diagnosis Date - Fibromyalgia - innerstitial cystiti - Other forms of migraine 1994 with aura - Urinary tract infection, site not specified RECURRENT FAMILY HISTORY Problem Relation Age of Onset - Colon Cancer Mother age 56-57 - Diabetes Maternal Grandmother - Prostate Cancer Father Social History Substance Use Topics - Smoking status: Never Smoker - Smokeless tobacco: Never Used - Alcohol use Yes Comment: moderately. maybe two drinks a week ALLERGIES Allergen Reactions - Hydrocodone-Acetami* Itching - Imitrex [Sumatripta* GI Upset - Tramadol Itching - Zomig [Zolmitriptan] Current Outpatient Prescriptions: fluticasone (FLONASE) 50 mcg/actuation nasal spray Use 2 Sprays in each nostril once daily. Rinse mouth after use. Disp: 1 Bottle Rfl: 1 cetirizine (ZYRTEC) 10 mg tablet Take 1 tablet by mouth once daily. Disp: 30 tablet Rfl: 0 FLUoxetine HCl (PROZAC) 40 mg capsule Take 40 mg by mouth once daily. Disp: Rfl: gabapentin (NEURONTIN) 300 mg capsule 2 capsules three times daily Disp: 180 capsule Rfl: 5 Desogestrel-Ethinyl Estradiol (KARIVA) 0.15-0.02mg x21 /0.01 mg x 5 ORAL per tablet Take 1 tablet by mouth once daily. Disp: 1 Package Rfl: 12 lansoprazole (PREVACID) 30 mg ORAL capsule Take 1 capsule by mouth once daily. Disp: Rfl: 0 No current facility-administered medications for this visit. OBJECTIVE: BP 128/72 Pulse 68 Temp 36.3 ?C (97.3 ?F) (Tympanic) Resp 16 Wt 98.9 kg (218 lb) LMP 09/24/2017 BMI 36.28 kg/m2 ROS all other systems reviewed and are negative Physical Exam Constitutional: Well developed, well nourished, NAD, alert and oriented to person , place and time, in no apparent distress. ENT: Head is atraumatic, airway patent, mucosal membranes moist. Eyes: EOMI, PERRL, no drainage, vision unchanged Neck: supple with no palpable lymph nodes, no midline tenderness Cardiac: Normal rate and rhythm. Heart sounds S1, S2. No murmurs, rubs or gallops. Chest: nontender Respiratory: No retractions or use of accessory muscles. Breath sounds clear and equal bilaterally. GI: Abdomen soft and non-distended, without tenderness, rebound or guarding. Bowel sounds normal. : no CVA tenderness MS: no swelling tenderness or deformity in upper or lower extremities, no midline tenderness in thoracic or lumbar spine. Neuro: strength sensation and coordination intact. CN II-XII grossly intact, Skin: warm and dry with out rash, lesion or ecchymosis Psych: alert appropriate, speech clear It was a pleasure to take care of Suni Trinidad today. Her urine dip is positive for blood protein and leuks. There for I will treat her with macrobid For the areas that are raw I have encouraged her to wash with soap and keep the area clean and dry Patient will follow up with family physician. They may return to the Urgent Care or go to the ER for worsening symptoms or concerns. Patient verbalized understanding of plan of care and is in agreement. ASSESSMENT/PLAN: 1. Urinary frequency - ICD9: 788.41, ICD10: R35.0 Shakeel Mendiola APRN.PORTER ASSESSMENT/PLAN: 1. Urinary frequency - ICD9: 788.41, ICD10: R35.0 (primary diagnosis) - UA DIP B/O - URINE CULTURE - NITROFURANTOIN MONOHYDRATE ANDamp; MACROCRYSTAL 100 MG ORAL CAP 2. Recurrent UTI (urinary tract infection) - ICD9: 599.0, ICD10: N39.0 - UA DIP B/O - URINE CULTURE - NITROFURANTOIN MONOHYDRATE ANDamp; MACROCRYSTAL 100 MG ORAL CAP Shakeel Mendiola APRN.ASSISTED LIVING ASSOCIATE Referring Provider: SELF [200] Allergies As of Date: 10/15/2017 Noted Allergy Reaction HYDROCODONE-ACETAMINOPHEN 02/16/2016 9 - Itching IMITREX (SUMATRIPTAN) 09/19/2005 8 - GI Upset TRAMADOL 02/16/2016 9 - Itching ZOMIG (ZOLMITRIPTAN) 09/19/2005 Date Reviewed: 10/15/2017 Reviewed by: Shabana Rich Ma - Fully Assessed Reason for Visit: Urinary Frequency [1086] Cmt: abdominal and pelvic pain, right flank pain, nausea x 4 days Primary Visit Diagnosis:Urinary frequency [R35.0] Other Visit Diagnosis:Recurrent UTI (urinary tract infection) [N39.0] Order(s):UA DIP B/O [7593838] Order #: [id number] URINE CULTURE [SQURCUL] Order #: [id number] nitrofurantoin monohydrate and macrocrystal (MACROBID) 100 mg capsuleTake 1 capsule by mouth twice daily with meals for 7 days.Disp: 14 capsuleRfl: 0 Prescriptions as of 10/15/2017 Sig: FLUTICASONE 50 MCG/ACTUATION * Use 2 Sprays in each nostril * CETIRIZINE 10 MG TABLET Take 1 tablet by mouth once d* FLUOXETINE 40 MG CAPSULE Take 40 mg by mouth once bela* GABAPENTIN 300 MG CAPSULE 2 capsules three times daily DESOGESTREL-E.ESTRADIOL 0.15 * Take 1 tablet by mouth once d* LANSOPRAZOLE 30 MG CAPSULE,DE* Take 1 capsule by mouth once * NITROFURANTOIN MONOHYDRATE AND * Take 1 capsule by mouth twice* More... Problem List As Of Date 10/15/2017 Noted Resolved Routine gynecological examination [Z01.419] INVALID FOR* Priority: B Class: Chronic More... Kidney stones [N20.0] INVALID FOR* Priority: B More... Fibromyalgia [M79.7] INVALID FOR* Priority: A More... Obesity [E66.9] INVALID FOR* More... Family hx of colon cancer [Z80.0] INVALID FOR* More... Chronic interstitial cystitis [N30.10] INVALID FOR* Abdominal pain, unspecified site [R10.9] INVALID FOR* Rectal bleeding [K62.5] INVALID FOR* Prescriptions ordered this encounter Disp Refills Start End NITROFURANTOIN MONOHYDRATE AND MACROCR* 14 c* 0 10/15/2017 10/22/2017 Route: ORAL Sig: Take 1 capsule by mouth twice daily with meals for 7 days. Encounter Status:Closed by SHAKEEL MENDIOLA CNP on 10/15/17 ALLERGIES ALLERGIES DATE TYPE / CODE NAME / CODE REACTION SEVERITY SOURCE 03/20/2018 Drug oxycodone/[id number] Itching Unknown [place] Allergy/416 8(RXNORM) [facility] 040111([facility] CT) Repository 03/20/2018 Drug acetaminophen/F0060 Itching Unknown [place] Allergy/416 05717(RXNORM) [facility] 853956([facility] CT) Repository 03/20/2018 Drug sulfamethoxazole/F0 Itching Unknown [place] Allergy/416 85270284(RXNORM) [facility] 250066([facility] ED CT) Repository 03/20/2018 Drug trimethoprim/O06261 Itching Unknown [place] Allergy/416 2873(RXNORM) [facility] 683717([facility] ED CT) Repository 04/30/2017 Drug hydrocodone Itching Unknown [place] Allergy/416 bitartrate/Q2814317 [facility] 925345[facility] [address] 04/30/2017 Drug tramadol/U610280391 Itching Unknown [place] Allergy/416 (RXNORM) [facility] 770664([facility] ED CT) Repository 02/16/2016 DRUG/468254 HYDROCODONE-ACETAMI ITCHING [facility] 003(SNOMED NOPHEN [address]) Repository 02/16/2016 DRUG TRAMADOL ITCHING [facility] [address]ED[address] [address](SNOM Repository ED CT) 09/19/2005 DRUG SUMATRIPTAN [facility] UPSET [address] [address](SNOM Repository ED CT) 09/19/2005 DRUG ZOLMITRIPTAN [address] 222064(SNOM Repository ED CT) ENCOUNTERS ENCOUNTERS ADMIT/DISCHARGE ACCOUNT NUMBER ADMITTING ENCOUNTER LOCATION SOURCE CLASS 05/31/2018 [id number] Ambulatory [facility] ding:RAD.FUT Repository URE 05/06/2018 [id number] Ambulatory [facility] ding:US Repository 04/04/2018 [id number] Ambulatory [facility] [id number]: System [id number]: Repository [id number] 03/20/2018 [id number] Inpatient [facility] Encounter 6WRoom: System [id number]: Repository [id number] 03/20/2018/03/20/20 [id number] Emergency [address] ding:ED Repository 02/22/2018/02/26/20 [id number] Ambulatory [address] Repository 01/16/2018/01/19/20 [id number] Ambulatory [address] Repository 11/15/2017/11/16/19 [id number] Ambulatory [address] Repository 10/31/2017 [id number] Ambulatory [facility] ding:LABSPEC Repository 10/15/2017/10/17/19 [id number] Ambulatory [address] Repository PAYERS PAYERS ENCOUNTER GUARANTOR PAYER SUBSCRIBER SOURCE 05/31/2018 SUNI Crowe Primary Jesse Cortes [place] [id number] Insurance:PEDROEMPolic Chris: alee Valderrama [facility]: [id number] [address]Mto: [id number] Repository Date:4618-63-81ZK [address] () [address], [place] [address]SO: 05/31/2018 Secondary NOT GIVENUNK [place] Insurance:SELF PAY [facility] Number: Effective Repository Date:2018-04-30 05/06/2018 SUNI Crowe Primary Jesse Sykes [id number] Insurance:ANTHEMPolic LovejoyDOB: Community LUCHO OLIVEROS, y Number: [id number] [facility] [address]Xdi: [id number] Repository Date:5222-18-31ZD BOX () [id number] [place] [address]YV: 05/06/2018 Secondary NOT GIVENUNK [place] Insurance:SELF PAY [facility] Number: Effective Repository Date:2018-04-05 04/04/2018 [facility] [place]: Insurance:[place] Anthony[place]OB: System Cross Blue [id number] Repository Chadd Rodriguez Number: [id number]: Effective Date: () 03/20/2018 [facility] [place]: Insurance:[place] AnthonyDOB: System [employer] Blue [id number] Repository Lucho Chadd Oliveros Number: [id number]: Effective Date: () 03/20/2018 SUNI J Primary Jesse Ahnoster [id number] Insurance:ANTHEMPolic LovejoyDOB: Community LUCHO OLIVEROS, y Number: [id number] Vista Regional Hospital [address]Uva: [id number] Repository Date:0364-78-02FQ BOX () [id number] [place] [address]WF: 03/20/2018 Secondary NOT GIVENUNK [place] Insurance:SELF PAY [facility] Number: Effective Repository Date:2018-03-20 10/31/2017 Suni J Primary Jesse S [place] [id number] Insurance:ANTHEMPolic LovejoyDOB: Community alee Rodriguez Number: [id number] [facility] [address]Oqo: [id number] Repository Date:8179-88-03XY [address] () [address], [place] [address]JQ: 10/31/2017 Secondary NOT GIVENUNK [place] Insurance:SELF PAY [facility] Number: Effective Repository Date:2017-10-31
== END ==
LOC: RAD.FUTURE 14:05
PROVIDERS: Family Provider Family Medicine; PCP Family Medicine
DX: N20.0 Calculus of kidney (principal)
CPT/HCPCS: 74018

== ENCOUNTER 2019-06-28 15:26 | Emergency (ER) | payer BC, SELFPAY ==
[2019-06-09 17:42] VITALS: BMI 35.8
[2019-06-28 15:26] VITALS: BP 163/86; RESP 96; TEMP 36.9; O2SAT 94; BMI 38.3
[2019-06-28 16:59] LABS: D-Dimer Quantitative (DVT/PE) 1.72 FEU/ug/m (0.27-0.49)
--- NOTE | 2019-06-28 17:02 | NURSING ---
ddimer 1.72 made aware.
--- NOTE | 2019-06-28 17:26 | ED.DCSUM_ITS ---
- ER Visit Summary Date of Service: 06/28/19 Chief Complaint: Right thigh pain History of Present Illness: The patient is a 48 F who presents with right thigh pain that has been getting worse over the past 5 days. Patient describes pain as aching. Patient states the pain feels like a pressure. Patient admits to some tingling over the medial aspect of the right thigh. Patient denies any fevers or chills. Patient went to an urgent care for evaluation. Patient was referred to the emergency department for possible DVT. Physical Examination: Vital signs are stable. Patient is afebrile. Patient is in no acute distress. Musculoskeletal exam reveals tenderness over the medial aspect of the right thigh. There is no erythema or warmth. There is no discharge or drainage. There are no palpable cords. There is no calf tenderness or edema. There is full range of motion of the lower extremities bilaterally. Pedal pulses are equal bilaterally. Strength is 5/5 bilateral in the lower extremities. There are no sensory deficits noted. Test Results: D-dimer was obtained since ultrasound was not available. This was elevated at 1.72. Emergency Department Course and Treatment: Patient was given a dose of Lovenox here. Patient was given an order for outpatient venous duplex of the right lower extremity to be done tomorrow. Patient was instructed to return as an outpatient tomorrow. Patient understands and is agreeable with the plan. All questions were answered. Disposition: Discharge home Impression: Right thigh pain This note was generated with [employer] dictation software. It may contain incorrect words, spelling, and punctuation that were not noted in review of the chart prior to signing ED Disposition - Plan for ED Patient: Disposition: Home or Assisted Living Diagnosis: Right leg pain Instructions: CONTUSION, Lower Extremity Referrals: Regino Venegas MD [Primary Care Provider] - 3-5 Days
[2019-06-28] MEDS: Enoxaparin 100 MG/ML Syringe SC (17:56)
[2019-06-28 17:58] VITALS: BP 140/75; PULSE 71; RESP 16; O2SAT 98
== END 2019-06-28 17:59 | disposition home or self-care (01) ==
PROVIDERS: Emergency Provider Emergency Medicine; Family Provider Family Medicine; PCP Family Medicine
DX: M79.651 Pain in right thigh (principal); M79.7 Fibromyalgia
CPT/HCPCS: 36415; 85379; 96372; 99282

== ENCOUNTER → 2019-06-30 10:50 | Outpatient (CLI) | payer BC, SELFPAY ==
[2019-06-28 15:26] VITALS: BMI 38.3
--- NOTE | 2019-06-30 10:52 | VDLE_ITS ---
Reason For Study: RLE pain RIGHT LEFT CFV is compressible, spontaneous, phasic, CFV is compressible, spontaneous, phasic, competent and demonstrates normal competent, and demonstrates normal augmentation. augmentation. FV is compressible, spontaneous, phasic, competent and demonstrates normal augmentation. POP V is compressible, spontaneous, phasic, competent and demonstrates normal augmentation. T/P Trunk is compressible. PTV is compressible. RT PerV is compressible. GSV is dilated and non compressible C/W acute SVT. SVT is at the SFJ. Procedure Exam performed in department. The exam was diagnostic. A preliminary report was called and/or faxed to Bridget TORIBIO @ [phone]. Dr. Venegas is calling in for a RX for patient. PT released. Interpretation Summary Deep veins of the right lower extremity are patent and compressible segmentally. There is no evidence of right lower extremity deep vein thrombosis. Valvular competence appears intact within the proximal deep venous system on the right . Acute superficial thrombophlebitis is noted throughout the right great saphenous vein, extending up to the right sapheno-femoral junction, but not into the deep venous system. Ordering Physician: Richard Figueroa Referring Physician: Regino Venegas Performed By: Marilou James, JACQUELYN, RVT
== END ==
LOC: CVS 10:50
PROVIDERS: Family Provider Family Medicine; PCP Family Medicine; Referring Provider Emergency Medicine; Visit Provider Emergency Medicine
DX: M79.604 Pain in right leg (principal)
CPT/HCPCS: 93971

== ENCOUNTER → 2019-10-31 14:06 | Outpatient (CLI) | payer BC, SELFPAY ==
[2019-09-10 15:14] VITALS: BMI 38.3
[2019-10-31 15:45] LABS: Anion Gap 8 (5-15); BUN 14 mg/dL (7-18); BUN/Creat Ratio 15.9 RATIO (10-20); Calcium,Total 9.5 mg/dL (8.5-10.1); Chloride 102 mmol/L (98-107); Cholesterol 208 mg/dL (200); Creatinine, Serum 0.88 mg/dL (0.55-1.02); EST Glomerular Filtration Rate 73 mL/min (>60); Est Glom Filt Rate - Afr Amer 88 mL/min (>60); Glucose 84 mg/dL (74-106); High Density Lipoprotein 56 mg/dL; Potassium 3.7 mmol/L (3.5-5.1); Sodium Level 137 mmol/L (136-145); Triglycerides 191 mg/dL; Very Low Density Lipoprotein 38 mg/dL (5-40)
== END ==
PROVIDERS: PCP Family Medicine; Visit Provider Family Medicine
DX: I10 Essential (primary) hypertension (principal)
CPT/HCPCS: 36415; 80048; 80061

== ENCOUNTER → 2020-02-10 | Outpatient (CLI) | payer BC, SELFPAY ==
[2020-02-09 16:58] VITALS: BMI 38.3
[2020-02-10 10:33] LABS: Bacteria 0 SEEN /hpf (None Seen); Mucous, Urine 0 SEEN /hpf (<or=2+); White Blood Cells 0 SEEN /hpf (0-5)
[2020-02-10 11:08] LABS: Color, Urine Yellow (Yellow); Glucose, Dipstick Normal (Normal); Ketone-Dipstick Negative (Negative); Leukocyte Esterase-Dipstick Negative /ul (Negative); Nitrite-Dipstick Negative (Negative); Occult Blood-Urine 250 /ul (Negative); Protein-Dipstick Negative (Negative); Specific Gravity, Urine 1.005 (1.002-1.030); Urine Bilirubin Dipstick Negative (Negative); Urine Clarity Sl. Cloudy (Clear); Urine Urobilinogen Normal (Normal)
[2020-02-10 11:22] LABS: Red Blood Cells-Urine 25-50 SEEN /hpf (0-5); Squamous Epithelial Cells - UA 0-5 SEEN /hpf (5-10)
== END | disposition home or self-care (01) ==
LOC: LABSPEC 10:12
PROVIDERS: PCP Family Medicine; Referring Provider Physician Assistant Surgical; Visit Provider Physician Assistant Surgical
DX: R10.9 Unspecified abdominal pain (principal)
CPT/HCPCS: 81001; 87086; 87088

== ENCOUNTER 2020-07-01 15:22 | Emergency (ER) | payer BC, SELFPAY ==
[2020-02-09 16:58] VITALS: BMI 38.3
[2020-07-01 15:24] VITALS: BP 146/87; PULSE 105; RESP 16; TEMP 36.1; O2SAT 97; BMI 38.7
[2020-07-01 15:26] VITALS: BP 146/87; PULSE 105; RESP 16; TEMP 36.1; O2SAT 97
--- NOTE | 2020-07-01 15:53 | ED.VISSUMM ---
- ER Visit Summary Date of Service: 07/01/20 Chief Complaint: Bilateral flank and abdominal pain History of Present Illness: The patient is a 49 F who presents with flank and abdominal pain that has been getting worse over the past 6 days. Patient states the pain started in the left groin and left flank area. Patient states it has now spread to bilateral flanks and diffusely across her abdomen. Patient describes her pain as aching. Patient states nothing makes it better or worse. Patient states the pain has been waxing and waning. Patient is on Macrobid for a urinary tract infection. Patient states she has taken 5 doses of that. Patient admits to a fever of 100 at home and subjective chills. Patient admits to nausea but denies any vomiting. Patient also admits to headaches. Physical Examination: Vital signs are stable. Patient is afebrile. Patient is in no acute distress. Oral mucosa is pink and moist. Neck is supple. Trachea is midline. There is no JVD. Heart was regular rate and rhythm. Lungs are clear and equal bilaterally. Abdomen is soft. Bowel sounds are normal. There is mild diffuse tenderness. There is some bilateral CVA tenderness. There is no rebound or guarding noted. Cranial nerves II through XII are intact. There are no focal motor or sensory deficits noted. Extremities are intact. There is no calf tenderness or edema. Test Results: CBC shows a mild leukocytosis of 13.6. Comprehensive metabolic profile shows a mild hypokalemia 3.2. Urinalysis does not show any evidence of urinary tract infection. CT scan of the abdomen pelvis was obtained. There is a 4.5 mm left proximal ureteral calculus with hydronephrosis and hydroureter. This was interpreted by the radiologist and reviewed by myself. Emergency Department Course and Treatment: Patient was given IV fluids, morphine, and Zofran. Patient was feeling somewhat better on reevaluation. Patient was instructed to drink plenty of fluids. Patient was given a prescription for Tylenol 3. Patient was instructed to follow-up with her primary care physician in 5 to 7 days. Patient was also given a referral for urology. Patient understood and was agreeable with the plan. All questions were answered. Disposition: Discharge home Impression: 1. Left ureteral calculus This note was generated with [employer] software. It may contain incorrect words, spelling, and punctuation that were not noted in review of the chart prior to signing ED Disposition - Plan for ED Patient: Disposition: Home or Assisted Living Diagnosis: Left ureteral calculus Instructions: ED Kidney Stone w/ Colic Prescriptions: Acetaminophen/Codeine #3 [Tylenol#3] 1 tab PO Q6H PRN PRN #20 tab PRN Reason: Pain Score 4-10 Prescription Printed Referrals: Kang Nayak MD [STAFF PHYSICIAN] - 5-7 Days Regino Venegas MD [Primary Care Provider] - 5-7 Days
[2020-07-01] MEDS: 0.9% Normal Saline 1,000 ML 1000 ML IV (15:57)
[2020-07-01] MEDS: Morphine 4 MG/ML Syringe IV (15:57)
[2020-07-01] MEDS: Ondansetron 4 MG/2 ML Vial IV (15:57)
--- NOTE | 2020-07-01 16:02 | CT_ITS ---
STUDY: CT ABDOMEN AND PELVIS WITHOUT CONTRAST REASON FOR EXAM: Female, 49 years old. LT FLANK PAIN X 5 DAYS. HX OF GB AND KS RADIATION DOSAGE (If Supplied By Facility): CTDIvol = ( 21.50 ) mGy, DLP = ( 1117.17 ) mGycm TECHNIQUE: Transaxial images were obtained from the dome of the diaphragm to the symphysis pubis without oral contrast, and without intravenous contrast. Sagittal and coronal images were reconstructed. Individualized dose optimization techniques were used for this CT. COMPARISON: 03/20/2018 FINDINGS: The visualized lung bases are unremarkable. The visualized portions of the heart are within normal limits. Small hiatal hernia is noted. Liver is enlarged and fatty infiltrated without mass or bile duct dilatation.. Gallbladder is not visualized which may be consistent with prior cholecystectomy.. Spleen is mildly enlarged. Normal pancreas. Normal bilateral adrenal glands. There are multiple approximately 5-6 tiny nonobstructing calculi in the right kidney. No evidence for hydronephrosis or mass in the limited unenhanced nature of the study. There are 2 tiny nonobstructing left renal calculi. There is also mild hydroureteronephrosis secondary to calculus in the upper pelvic ureter measuring approximately 4.5 mm in size Normal visualized stomach. Normal small intestine. Normal colon. Normal appendix Normal abdominal aorta. Normal inferior vena cava. Normal retroperitoneum. Incompletely distended thick-walled bladder likely of no significance Small fat-containing umbilical hernia. Lumbar spine demonstrates mild spondylosis CT/Abdomen/Pelvis without Cont IMPRESSION: Bilateral nephrolithiasis.. Mild left hydroureteronephrosis secondary to calculus in the upper pelvic ureter measuring approximately 4.5 mm in size. Electronically Signed: Gustavo Buchanan MD at 16:23 EST , Service support ,
[2020-07-01 16:17] LABS: Absolute Lymphocyte Count 3.22 X10^3/uL (0.83-4.51); Absolute Neutrophil Count 8.9 X10^3/uL (2.0-7.7); Basophil# 0.04 X10^3/uL; Basophil% 0.3 % (0-1); Eosinophil# 0.18 X10^3/uL; Eosinophils% 1.3 % (0-5); Hematocrit 37.8 % (37-47); Hemoglobin 12.5 g/dL (12.0-15.0); Lymphocyte # 3.22 X10^3/ul (4.0); Lymphocyte % 23.6 % (19-41); Mean Corp Hgb Conc 33.1 g/dL (32-36); Mean Corpuscular Hgb 29.4 pg (27.0-32.0); Mean Corpuscular Volume 88.9 fL (81-99); Mean Platelet Vol. 9.6 fl (6.2-12.0); Monocyte# 1.21 X10^3/uL; Monocyte% 8.9 % (0-10); NRBC Flagged by Analyzer 0 % (0-5); Neutrophil # 8.93 X10^3/uL (2.7-7.7); Neutrophil % 65.6 % (47-70); Platelet Count 375 K/mm3 (150-450); RBC Distribution Width CV 13.7 % (11.6-14.6); RBC Distribution Width SD 44.8 fl (35.1-43.9); Red Blood Count 4.25 M/mm3 (4.2-5.4); White Blood Count 13.6 K/mm3 (4.4-11.0)
[2020-07-01 16:25] LABS: ALB/GLOB Ratio 0.7 RATIO (0.9-2.4); AST(SGOT) 7 U/L (15-37); Alanine Aminotransfer ALT/SGPT 20 U/L (13-56); Albumin, Serum 3.5 g/dL (3.2-5.0); Alkaline Phosphatase 95 U/L (45-117); Anion Gap 8 (5-15); BUN 13 mg/dL (7-18); BUN/Creat Ratio 13.8 RATIO (10-20); Calcium,Total 9.7 mg/dL (8.5-10.1); Chloride 101 mmol/L (98-107); Creatinine, Serum 0.94 mg/dL (0.55-1.02); EST Glomerular Filtration Rate 67 mL/min (>60); Est Glom Filt Rate - Afr Amer 81 mL/min (>60); Estimated Creatinine Clearance 67.77 ml/min; Globulin 4.8 g/dL (2.2-4.2); Glucose 94 mg/dL (74-106); Potassium 3.2 mmol/L (3.5-5.1); Protein, Total 8.3 g/dL (6.4-8.2); Sodium Level 137 mmol/L (136-145)
[2020-07-01 17:00] LABS: Bacteria 0 SEEN /hpf (None Seen); Mucous, Urine 0 SEEN /hpf (<or=2+)
[2020-07-01 17:02] LABS: Color, Urine Yellow (Yellow); Glucose, Dipstick Normal (Normal); Ketone-Dipstick Negative (Negative); Leukocyte Esterase-Dipstick 25 /ul (Negative); Nitrite-Dipstick Negative (Negative); Occult Blood-Urine 150 /ul (Negative); Protein-Dipstick 15 mg/dl (Negative); Specific Gravity, Urine 1.005 (1.002-1.030); Urine Bilirubin Dipstick Negative (Negative); Urine Clarity Clear (Clear); Urine Urobilinogen Normal (Normal)
[2020-07-01 17:08] LABS: Red Blood Cells-Urine 10-25 SEEN /hpf (0-5); Squamous Epithelial Cells - UA 0-5 SEEN /hpf (5-10); White Blood Cells 0-5 SEEN /hpf (0-5)
[2020-07-01 18:16] VITALS: BP 109/64; PULSE 101; RESP 16; O2SAT 96
== END 2020-07-01 18:18 | disposition home or self-care (01) ==
PROVIDERS: Emergency Provider Emergency Medicine; PCP Family Medicine
DX: N13.2 Hydronephrosis with renal and ureteral calculous obstruction (principal); M79.7 Fibromyalgia; E66.9 Obesity, unspecified; Z68.38 Body mass index [BMI] 38.0-38.9, adult; Z86.718 Personal history of other venous thrombosis and embolism; Z79.01 Long term (current) use of anticoagulants; Z79.899 Other long term (current) drug therapy
CPT/HCPCS: 74176; 80053; 81001; 85025; 96361; 96374; 96375; 99284; J7030; A4216; J2405

== ENCOUNTER → 2020-10-18 09:48 | Outpatient (CLI) | payer BC, SELFPAY ==
[2020-10-18 12:37] LABS: Absolute Lymphocyte Count 3.41 X10^3/uL (0.83-4.51); Absolute Neutrophil Count 7.3 X10^3/uL (2.0-7.7); Basophil# 0.06 X10^3/uL; Basophil% 0.5 % (0-1); Eosinophils% 2.6 % (0-5); Hematocrit 37.7 % (37-47); Hemoglobin 12.2 g/dL (12.0-15.0); Lymphocyte # 3.41 X10^3/ul (0.83-4.51); Lymphocyte % 29.4 % (19-41); Mean Corp Hgb Conc 32.4 g/dL (32-36); Mean Corpuscular Hgb 28.9 pg (27.0-32.0); Mean Corpuscular Volume 89.3 fL (81-99); Mean Platelet Vol. 10.1 fl (6.2-12.0); Monocyte# 0.47 X10^3/uL; Monocyte% 4.1 % (0-10); NRBC Flagged by Analyzer 0 % (0-5); Neutrophil # 7.31 X10^3/uL (2.7-7.7); Neutrophil % 63.1 % (47-70); Platelet Count 414 K/mm3 (150-450); RBC Distribution Width CV 13.8 % (11.6-14.6); RBC Distribution Width SD 44.9 fl (35.1-43.9); Red Blood Count 4.22 M/mm3 (4.2-5.4); White Blood Count 11.6 K/mm3 (4.4-11.0)
== END ==
PROVIDERS: PCP Family Medicine; Visit Provider Family Medicine
DX: R53.82 Chronic fatigue, unspecified (principal)
CPT/HCPCS: 36415; 85025

== ENCOUNTER → 2021-01-19 16:18 | Outpatient (CLI) | payer OTHER, SELFPAY ==
[2021-01-10 17:17] VITALS: BMI 38.7
== END ==
PROVIDERS: PCP Family Medicine; Visit Provider Family Medicine
DX: N39.0 Urinary tract infection, site not specified (principal)
CPT/HCPCS: 87086; 87088; 87186

== ENCOUNTER → 2021-11-21 | Outpatient (CLI) | payer BC, OTHER, SELFPAY ==
[2021-11-21 18:36] LABS: International Normalized Ratio 1.2
== END | disposition home or self-care (01) ==
LOC: MFPLAB 16:54
PROVIDERS: PCP Family Medicine; Visit Provider Family Medicine
DX: I82.409 Acute embolism and thrombosis of unspecified deep veins of unspecified lower extremity (principal)
CPT/HCPCS: 36415; 85610

== ENCOUNTER → 2021-11-29 | Outpatient (CLI) | payer OTHER, SELFPAY ==
[2021-11-29 14:59] LABS: International Normalized Ratio 1.2; Prothrombin Time (Protime)PT. 15.1 SECONDS (11.7-14.9)
== END | disposition home or self-care (01) ==
LOC: MFPLAB 11:59
PROVIDERS: PCP Family Medicine; Visit Provider Family Medicine
DX: I82.409 Acute embolism and thrombosis of unspecified deep veins of unspecified lower extremity (principal)
CPT/HCPCS: 36415; 85610

== ENCOUNTER → 2021-12-05 | Outpatient (CLI) | payer OTHER, SELFPAY ==
[2021-12-05 17:46] LABS: International Normalized Ratio 1.9; Prothrombin Time (Protime)PT. 21.2 SECONDS (11.7-14.9)
== END | disposition home or self-care (01) ==
LOC: MFPLAB 15:37
PROVIDERS: PCP Family Medicine; Visit Provider Family Medicine
DX: I82.409 Acute embolism and thrombosis of unspecified deep veins of unspecified lower extremity (principal)
CPT/HCPCS: 36415; 85610

== ENCOUNTER → 2021-12-12 | Outpatient (CLI) | payer OTHER, SELFPAY ==
[2021-12-12 17:47] LABS: International Normalized Ratio 2.4; Prothrombin Time (Protime)PT. 26.2 SECONDS (11.7-14.9)
== END | disposition home or self-care (01) ==
LOC: MFPLAB 16:11
PROVIDERS: PCP Family Medicine; Visit Provider Family Medicine
DX: I82.409 Acute embolism and thrombosis of unspecified deep veins of unspecified lower extremity (principal)
CPT/HCPCS: 36415; 85610

== ENCOUNTER → 2021-12-19 | Outpatient (CLI) | payer OTHER, SELFPAY ==
[2021-12-19 17:54] LABS: International Normalized Ratio 2.5; Prothrombin Time (Protime)PT. 26.7 SECONDS (11.7-14.9)
== END | disposition home or self-care (01) ==
LOC: MFPLAB 15:14
PROVIDERS: PCP Family Medicine; Visit Provider Family Medicine
DX: I82.409 Acute embolism and thrombosis of unspecified deep veins of unspecified lower extremity (principal)
CPT/HCPCS: 36415; 85610

== ENCOUNTER → 2022-01-09 | Outpatient (CLI) | payer OTHER, SELFPAY ==
[2022-01-09 18:26] LABS: International Normalized Ratio 2.8; Prothrombin Time (Protime)PT. 29.2 SECONDS (11.7-14.9)
== END | disposition home or self-care (01) ==
PROVIDERS: PCP Family Medicine; Visit Provider Family Medicine
DX: I82.409 Acute embolism and thrombosis of unspecified deep veins of unspecified lower extremity (principal)
CPT/HCPCS: 36415; 85610

== ENCOUNTER → 2022-01-20 | Outpatient (CLI) | payer OTHER, SELFPAY | END | disposition home or self-care (01) | LOC: LABSPEC 12:03 | PROVIDERS: PCP Family Medicine; Visit Provider Family Medicine | DX: R30.0 Dysuria (principal) | CPT/HCPCS: 87086; 87088 ==

== ENCOUNTER → 2022-01-23 | Outpatient (CLI) | payer OTHER, SELFPAY ==
[2022-01-23 17:56] LABS: International Normalized Ratio 2.5
== END | disposition home or self-care (01) ==
LOC: MFPLAB 15:34
PROVIDERS: PCP Family Medicine; Referring Provider Family Medicine; Visit Provider Family Medicine
DX: I82.409 Acute embolism and thrombosis of unspecified deep veins of unspecified lower extremity (principal)
CPT/HCPCS: 36415; 85610

== ENCOUNTER → 2022-02-03 | Outpatient (CLI) | payer OTHER, SELFPAY | END | disposition home or self-care (01) | PROVIDERS: PCP Family Medicine; Visit Provider Family Medicine | DX: R30.0 Dysuria (principal) | CPT/HCPCS: 87086; 87088 ==

== ENCOUNTER → 2022-02-17 | Outpatient (CLI) | payer OTHER, SELFPAY ==
--- NOTE | 2022-02-17 16:48 | CT_ITS ---
STUDY: CT ABDOMEN AND PELVIS WITHOUT CONTRAST REASON FOR EXAM: Female, 51 years old. PELVIC PAIN -- . RADIATION DOSAGE (If Supplied By Facility): CTDIvol = ( 20.16 ) mGy, DLP = ( 1087.76 ) mGycm TECHNIQUE: Transaxial images were obtained from the dome of the diaphragm to the symphysis pubis without oral contrast, and without intravenous contrast. Sagittal and coronal images were reconstructed. Individualized dose optimization techniques were used for this CT. COMPARISON: 07/01/2020 FINDINGS: The visualized lung bases are unremarkable. The visualized portions of the heart are within normal limits. Normal liver. There is non-visualization of the gallbladder, which may be secondary to either contraction or a prior cholecystectomy. Normal spleen. Normal pancreas. Normal bilateral adrenal glands. Nonrotated right kidney which is normal variant. Bilateral small nonobstructing renal stones. No hydronephrosis, ureteral stone, ureteral dilatation. Normal visualized stomach. Normal small intestine. Normal colon. The appendix is visualized and appears normal. Normal abdominal aorta. Normal inferior vena cava. Normal retroperitoneum. Normal urinary bladder. Normal abdominal wall. Normal osseous structures. CT/Abdomen/Pelvis without Cont IMPRESSION: Bilateral small nonobstructing renal stones. Electronically Signed: Jamie Wilks MD at 17:43 EDT ,
== END | disposition home or self-care (01) ==
LOC: CT 16:46
PROVIDERS: PCP Family Medicine; Referring Provider Urology; Visit Provider Urology
DX: N20.0 Calculus of kidney (principal); N39.0 Urinary tract infection, site not specified
CPT/HCPCS: 74176

== ENCOUNTER → 2022-02-20 | Outpatient (CLI) | payer OTHER, SELFPAY ==
[2022-02-20 18:06] LABS: International Normalized Ratio 2.2; Prothrombin Time (Protime)PT. 23.9 SECONDS (11.7-14.9)
== END | disposition home or self-care (01) ==
LOC: MFPLAB 15:54
PROVIDERS: PCP Family Medicine; Visit Provider Family Medicine
DX: I82.409 Acute embolism and thrombosis of unspecified deep veins of unspecified lower extremity (principal)
CPT/HCPCS: 36415; 85610

== ENCOUNTER → 2022-02-28 | Outpatient (CLI) | payer OTHER, SELFPAY ==
--- NOTE | 2022-02-28 14:17 | RAD_ITS ---
EXAM: XR ABDOMEN, 1 VIEW CLINICAL INDICATION: STONES -- right stone TECHNIQUE: Frontal supine view of the abdomen/pelvis. This report was created using [employer] report generation technology. COMPARISON: CT 02/17/2022 FINDINGS: LOWER THORAX: No acute pathology. GASTROINTESTINAL TRACT: Unremarkable. Non-obstructive. No bowel or stomach distention. ORGANS: Bilateral small nonobstructing renal stones. There are calcified phleboliths in the pelvis. This makes differentiation with distal ureteral stones difficult. No organomegaly. BONES/JOINTS: No acute pathology. SOFT TISSUES: No acute pathology. RAD/Abdomen Single View IMPRESSION: Bilateral small nonobstructing renal stones. Electronically Signed: Luis Fernando Jimenez MD at 16:55 EDT ,
== END | disposition home or self-care (01) ==
PROVIDERS: PCP Family Medicine; Referring Provider Urology; Visit Provider Urology
DX: N20.0 Calculus of kidney (principal)
CPT/HCPCS: 74018

== ENCOUNTER → 2022-03-20 | Outpatient (CLI) | payer OTHER, SELFPAY ==
[2022-03-20 18:55] LABS: International Normalized Ratio 2.1; Prothrombin Time (Protime)PT. 22.9 SECONDS (11.7-14.9)
== END | disposition home or self-care (01) ==
LOC: MFPLAB 16:21
PROVIDERS: PCP Family Medicine; Visit Provider Family Medicine
DX: I82.409 Acute embolism and thrombosis of unspecified deep veins of unspecified lower extremity (principal)
CPT/HCPCS: 36415; 85610

== ENCOUNTER → 2022-04-17 | Outpatient (CLI) | payer BC, SELFPAY ==
[2022-04-17 18:05] LABS: International Normalized Ratio 2.1; Prothrombin Time (Protime)PT. 23.4 SECONDS (11.7-14.9)
== END | disposition home or self-care (01) ==
LOC: MFPLAB 15:06
PROVIDERS: PCP Family Medicine; Referring Provider Family Medicine; Visit Provider Family Medicine
DX: I82.409 Acute embolism and thrombosis of unspecified deep veins of unspecified lower extremity (principal)
CPT/HCPCS: 36415; 85610

== ENCOUNTER → 2022-05-18 | Outpatient (CLI) | payer BC, SELFPAY ==
[2022-05-18 18:08] LABS: International Normalized Ratio 2.1; Prothrombin Time (Protime)PT. 23.5 SECONDS (11.7-14.9)
== END | disposition home or self-care (01) ==
LOC: MFPLAB 14:57
PROVIDERS: PCP Family Medicine; Referring Provider Family Medicine; Visit Provider Family Medicine
DX: I82.409 Acute embolism and thrombosis of unspecified deep veins of unspecified lower extremity (principal)
CPT/HCPCS: 36415; 85610

== ENCOUNTER → 2022-06-30 | Outpatient (CLI) | payer BC, SELFPAY ==
--- NOTE | 2022-06-30 14:37 | RAD_ITS ---
STUDY: X-RAY - PELVIS AND BILATERAL HIPS REASON FOR EXAM: Female, 51 years old. Hip pain, right greater than left. TECHNIQUE: AP view of the pelvis.? 2 views of the right hip, and 2 views of the left hip were obtained. COMPARISON: None. FINDINGS: There is a non-specific bowel gas pattern. Normal visualized soft tissue structures. Osteopenia. Normal bilateral iliac wings, sacroiliac joints and visualized sacrum. Normal bilateral superior and inferior pubic rami. Normal pubic symphysis. Normal bilateral ischial tuberosities. Mild arthrosis of both hips with small osteophytes. RAD/Hips B/L min 2 views w/ Pelvis IMPRESSION: Osteopenia with mild arthrosis of both hips, right greater than left. No acute abnormality. Electronically Signed: Malvin Noriega, at 15:22 EST ,
[2022-06-30 17:50] LABS: International Normalized Ratio 3.4; Prothrombin Time (Protime)PT. 33.8 SECONDS (11.7-14.9)
== END | disposition home or self-care (01) ==
PROVIDERS: PCP Family Medicine; Referring Provider Family Medicine; Visit Provider Family Medicine
DX: M16.0 Bilateral primary osteoarthritis of hip (principal); I82.409 Acute embolism and thrombosis of unspecified deep veins of unspecified lower extremity; M85.851 Other specified disorders of bone density and structure, right thigh; M85.852 Other specified disorders of bone density and structure, left thigh
CPT/HCPCS: 36415; 73521; 85610

== ENCOUNTER → 2022-07-07 | Outpatient (CLI) | payer BC, SELFPAY ==
[2022-07-07 12:32] LABS: International Normalized Ratio 1.9; Prothrombin Time (Protime)PT. 21.3 SECONDS (11.7-14.9)
== END | disposition home or self-care (01) ==
LOC: MFPLAB 09:49
PROVIDERS: PCP Family Medicine; Visit Provider Family Medicine
DX: I82.409 Acute embolism and thrombosis of unspecified deep veins of unspecified lower extremity (principal)
CPT/HCPCS: 36415; 85610

== ENCOUNTER 2022-08-04 11:02 | Outpatient (RCR) | payer BC, SELFPAY ==
[2022-08-04 12:24] LABS: International Normalized Ratio 2.3; Prothrombin Time (Protime)PT. 25.3 SECONDS (11.7-14.9)
== END 2022-08-04 18:00 | disposition home or self-care (01) ==
LOC: MTLAB 11:02
PROVIDERS: PCP Family Medicine; Referring Provider Family Medicine; Visit Provider Family Medicine
DX: I82.409 Acute embolism and thrombosis of unspecified deep veins of unspecified lower extremity (principal)
CPT/HCPCS: 36415; 85610

== ENCOUNTER 2022-09-27 14:42 | Outpatient (CLI) | payer BC, SELFPAY ==
[2022-09-27 18:22] LABS: International Normalized Ratio 2.5
== END 2022-09-27 23:59 | disposition home or self-care (01) ==
LOC: MFPLAB 14:48
PROVIDERS: PCP Family Medicine; Referring Provider Family Medicine; Visit Provider Family Medicine
DX: I82.409 Acute embolism and thrombosis of unspecified deep veins of unspecified lower extremity (principal)
CPT/HCPCS: 36415; 85610

== ENCOUNTER → 2022-11-02 | Outpatient (CLI) | payer BC, SELFPAY ==
[2022-11-02 12:11] LABS: Absolute Lymphocyte Count 3.54 X10^3/uL (0.83-4.51); Absolute Neutrophil Count 7.4 X10^3/uL (2.0-7.7); Basophil# 0.05 X10^3/uL; Basophil% 0.4 % (0-1); Eosinophil# 0.24 X10^3/uL; Hematocrit 38.3 % (37-47); Hemoglobin 12.2 g/dL (12.0-15.0); Lymphocyte # 3.54 X10^3/ul (0.83-4.51); Lymphocyte % 29.8 % (19-41); Mean Corp Hgb Conc 31.9 g/dL (32-36); Mean Corpuscular Hgb 27.4 pg (27.0-32.0); Mean Corpuscular Volume 85.9 fL (81-99); Mean Platelet Vol. 9.4 fl (6.2-12.0); Monocyte# 0.59 X10^3/uL; NRBC Flagged by Analyzer 0 % (0-5); Neutrophil # 7.39 X10^3/uL (2.7-7.7); Neutrophil % 62.4 % (47-70); Platelet Count 358 K/mm3 (150-450); RBC Distribution Width CV 15.4 % (11.6-14.6); RBC Distribution Width SD 48.2 fl (35.1-43.9); Red Blood Count 4.46 M/mm3 (4.2-5.4); White Blood Count 11.9 K/mm3 (4.4-11.0)
[2022-11-02 12:46] LABS: Hemoglobin A1c 5.5 % (3.8-5.6)
[2022-11-02 13:11] LABS: Follicle Stimulating Hormone 15.2 mIU/mL; Luteinizing Hormone 10.8 mIU/mL; T4 Free Direct 1.08 ng/dL (0.76-1.46); Thyroid Stim Hormone (TSH) 1.55 uIU/mL (0.358-3.74)
== END | disposition home or self-care (01) ==
LOC: WOBLAB 11:38
PROVIDERS: PCP Family Medicine; Visit Provider Obstetrics & Gynecology
DX: N93.9 Abnormal uterine and vaginal bleeding, unspecified (principal)
CPT/HCPCS: 36415; 82670; 83001; 83002; 83036; 84439; 84443; 85025

== ENCOUNTER 2022-11-03 16:02 | Outpatient (CLI) | payer BC, SELFPAY ==
[2022-11-03 17:55] LABS: International Normalized Ratio 1.7; Prothrombin Time (Protime)PT. 20.4 SECONDS (11.7-14.9)
== END 2022-11-03 23:59 | disposition home or self-care (01) ==
LOC: MFPLAB 16:07
PROVIDERS: PCP Family Medicine; Visit Provider Family Medicine
DX: I82.409 Acute embolism and thrombosis of unspecified deep veins of unspecified lower extremity (principal)
CPT/HCPCS: 36415; 85610

== ENCOUNTER → 2022-11-09 | Outpatient (CLI) | payer BC, SELFPAY ==
[2022-11-17 11:09] LABS: HPV APTIMA, High Risk Negative (Negative)
== END | disposition home or self-care (01) ==
LOC: LABSPEC 10:18
PROVIDERS: PCP Family Medicine; Visit Provider Obstetrics & Gynecology
DX: Z12.4 Encounter for screening for malignant neoplasm of cervix (principal)
CPT/HCPCS: 87624; 88175; G0145

== ENCOUNTER → 2022-11-10 | Outpatient (CLI) | payer BC, SELFPAY ==
[2022-11-10 18:03] LABS: International Normalized Ratio 2.6; Prothrombin Time (Protime)PT. 28.2 SECONDS (11.7-14.9)
== END | disposition home or self-care (01) ==
LOC: MFPLAB 14:46
PROVIDERS: PCP Family Medicine; Visit Provider Family Medicine
DX: I82.409 Acute embolism and thrombosis of unspecified deep veins of unspecified lower extremity (principal)
CPT/HCPCS: 36415; 85610

== ENCOUNTER → 2022-11-22 | Outpatient (CLI) | payer BC, SELFPAY ==
--- NOTE | 2022-11-22 12:30 | EMB_PTH ---
PATIENT: KODAK TRINIDAD LOC: [facility] U#:[id number] AGE/SX: 51/F ROOM: RE11/22/[address]: Dr. Quinton Swan MD : 1970 BED: DIS: 11/22/2022 SPEC #: [id number] RECD: 11/22/22 14:48 STATUS: KING RERobin #: [id number] JAMAAL: 11/22/22 12:[address]: Quinton Swan DEPT: SURGICAL PATHOLOGY RECD BY: Tiffanie Ortega ENTERED: 11/23/22 09:00 SP TYPE: ENDOM BX/C JEWEL DR: Dr. Regino Venegas MD Tissues: Endometrium, NOS Procedures: Surgery Specimen Level IV HEADER OPERATION: Endometrial biopsy PRE-OP DIAGNOSIS: N93.9 TISSUE SUBMITTED: Endometrial biopsy MICROSCOPIC DIAGNOSIS Endometrial biopsy: Inactive endometrium with cystic changes. See comment. SJ:ebony 11/24/2022 COMMENT Clinical correlation and appropriate follow up are necessary. MICROSCOPIC DESCRIPTION Slides are reviewed. GROSS DESCRIPTION Received is one container labeled with the patient's name and not further designated. The specimen consists of multiple fragments of hemorrhagic soft tissue that in aggregate measure 2.0 x 1.0 x 0.1 cm. The specimen is totally submitted in one cassette. / SJ:ebony 11/23/2022 TC:5 [facility]: [id number]
== END | disposition home or self-care (01) ==
LOC: LABSPEC 14:04
PROVIDERS: PCP Family Medicine; Visit Provider Obstetrics & Gynecology
DX: N93.9 Abnormal uterine and vaginal bleeding, unspecified (principal)
CPT/HCPCS: 88305

== ENCOUNTER 2022-11-29 10:33 | Outpatient (RCR) | payer BC, SELFPAY ==
[2022-11-29 12:57] LABS: International Normalized Ratio 1.7; Prothrombin Time (Protime)PT. 20.4 SECONDS (11.7-14.9)
== END 2022-11-29 11:33 | disposition home or self-care (01) ==
LOC: MTLAB 10:33
PROVIDERS: PCP Family Medicine; Referring Provider Family Medicine; Visit Provider Family Medicine
DX: I82.409 Acute embolism and thrombosis of unspecified deep veins of unspecified lower extremity (principal)
CPT/HCPCS: 36415; 85610

== ENCOUNTER → 2022-12-14 | Outpatient (CLI) | payer BC, SELFPAY ==
[2022-12-14 12:28] LABS: International Normalized Ratio 2.7
== END | disposition home or self-care (01) ==
LOC: MFPLAB 10:01
PROVIDERS: PCP Family Medicine; Visit Provider Family Medicine
DX: I82.409 Acute embolism and thrombosis of unspecified deep veins of unspecified lower extremity (principal)
CPT/HCPCS: 36415; 85610

== ENCOUNTER 2023-01-24 15:03 | Outpatient (RCR) | payer BC, SELFPAY ==
[2023-01-03 13:06] LABS: Prothrombin Time (Protime)PT. 31.3 SECONDS (11.7-14.9)
[2023-01-24 18:13] LABS: International Normalized Ratio 2.5; Prothrombin Time (Protime)PT. 27.3 SECONDS (11.7-14.9)
== END 2023-01-29 18:00 | disposition home or self-care (01) ==
LOC: MTLAB 15:03
PROVIDERS: PCP Family Medicine; Referring Provider Family Medicine; Visit Provider Family Medicine
DX: I82.409 Acute embolism and thrombosis of unspecified deep veins of unspecified lower extremity (principal)
CPT/HCPCS: 36415; 85610

== ENCOUNTER → 2023-02-21 | Outpatient (CLI) | payer BC, SELFPAY ==
[2023-02-21 15:23] LABS: International Normalized Ratio 2.6; Prothrombin Time (Protime)PT. 28.5 SECONDS (11.7-14.9)
== END | disposition home or self-care (01) ==
LOC: MFPLAB 12:15
PROVIDERS: PCP Family Medicine; Visit Provider Family Medicine
DX: I82.409 Acute embolism and thrombosis of unspecified deep veins of unspecified lower extremity (principal)
CPT/HCPCS: 36415; 85610

== ENCOUNTER → 2023-04-23 | Outpatient (CLI) | payer BC, SELFPAY ==
[2023-04-23 18:17] LABS: Prothrombin Time (Protime)PT. 31.4 SECONDS (11.7-14.9)
== END | disposition home or self-care (01) ==
LOC: MFPLAB 16:27
PROVIDERS: PCP Family Medicine; Visit Provider Family Medicine
DX: I82.409 Acute embolism and thrombosis of unspecified deep veins of unspecified lower extremity (principal)
CPT/HCPCS: 36415; 85610

== ENCOUNTER → 2023-05-31 | Outpatient (CLI) | payer BC, SELFPAY ==
[2023-05-31 18:06] LABS: Prothrombin Time (Protime)PT. 23.1 SECONDS (11.7-14.9)
== END | disposition home or self-care (01) ==
LOC: MFPLAB 16:10
PROVIDERS: PCP Family Medicine; Visit Provider Family Medicine
DX: I82.409 Acute embolism and thrombosis of unspecified deep veins of unspecified lower extremity (principal)
CPT/HCPCS: 36415; 85610

== ENCOUNTER 2023-07-17 08:12 | Outpatient (CLI) | payer BC, SELFPAY ==
--- OUTSIDE RECORDS SUMMARY | 2023-07-17 08:47 | XMS RPT_ITS | CCD ---
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 Name Role Phone PROVIDER, UNKNOWN Unavailable Unavailable Regino Dozier Unavailable Unavailable TY DE LA TORRE Unavailable Unavailable DANI MAE Unavailable Unavailable PROVIDER, UNKNOWN Unavailable Unavailable Rgeino Dozier Unavailable Unavailable Regino Dozier MD Primary Care Provider REGINO DOZIER Primary Care Unavailable Allergies Allergy Classification Reported Allergen(s) Allergy Type Date of Onset Reaction(s) Facility (2 sources) Acetaminophen / HYDROcodone; Translations: [HYDROCODONE-ACETAMI NOPHEN] Drug Allergy 6 Itching [facility] Work Phone: (2 sources) Sulfamethoxazole / Trimethoprim; Translations: [SULFAMETHOXAZOLE-TR IMETHOPRIM] Drug Allergy 9 Shortness of Breath [facility] Work Phone: (2 sources) SUMAtriptan; Translations: [SUMATRIPTAN] Drug Allergy 6 GI Upset [facility] (2 sources) traMADol; Translations: [TRAMADOL] Drug Allergy 6 Itching [facility] Work Phone: (2 sources) ZOLMitriptan; Translations: [ZOLMITRIPTAN] Drug Allergy 6 [facility] Medications Completed/Discontinued Medications Medication Drug Class(es) Dates Sig (Normalized) Sig (Original) apixaban 5 mg oral tablet (1 source) Factor Xa Inhibitor Start: 10-24-2019 End: 03-31-2023 take 1 tablet by mouth twice daily ELIQUIS 5 mg tab(s) Take 5 mg by mouth twice daily. 0 10/24/2019 03/31/2023 Discontinued Problems Active Problems Problem Classification Problem Date Documented Da te Episodic/Chronic Genitourinary symptoms and ill-defined conditions (2 sources) Personal history of urinary (tract) infections; Translations: [Personal history of urinary (tract) infections] Onset: 04-04-2018 Episodic Influenza (1 source) Influenza due to Influenza A virus; Translations: [Influenza due to other identified influenza virus with other respiratory manifestations] 03-31-2023 Episodic Other lower respiratory disease (1 source) Cough; Translations: [Acute cough] 03-31-2023 Episodic Other nutritional; endocrine; and metabolic disorders (2 sources) Body mass index (BMI) 35.0-35.9, adult; Translations: [Body mass index (BMI) 35.0-35.9, adult] Onset: 03-20-2018 Chronic Other nutritional; endocrine; and metabolic disorders (2 sources) Obesity, unspecified; Translations: [Obesity, unspecified] Onset: 03-20-2018 Chronic Other nutritional; endocrine; and metabolic disorders (1 source) Obesity; Translations: [Obesity, unspecified] Onset: 08-19-2010 06-27-2021 Chronic Urinary tract infections (1 source) Chronic interstitial cystitis; Translations: [Interstitial cystitis (chronic) without hematuria] Onset: 07-06-2011 07-06-2011 Chronic Past or Other Problems Problem Classification Problem Date Documented Da te Episodic/Chronic Abdominal pain (1 source) Abdominal pain; Translations: [Unspecified abdominal pain] Onset: 11-15-2011 11-15-2011 Episodic Calculus of urinary tract (5 sources) Calculus of kidney; Translations: [Calculus of ureter] Onset: 08-19-2010 06-27-2021 Episodic Gastrointestinal hemorrhage (1 source) Rectal hemorrhage; Translations: [Hemorrhage of anus and rectum] Onset: 11-15-2011 11-15-2011 Episodic Other connective tissue disease (1 source) Fibromyalgia; Translations: [Fibromyalgia] Onset: 08-19-2010 06-27-2021 Episodic Residual codes; unclassified (1 source) Family history of cancer of colon; Translations: [Family history of malignant neoplasm of digestive organs] Onset: 08-19-2010 06-27-2021 Episodic Urinary tract infections (3 sources) Pyonephrosis; Translations: [Acute cystitis] Onset: 02-25-2018 02-25-2018 Episodic Results Test Name Value Interpretation Reference Range Facil ity Vital Signs Date Time Vital Sign Value Performing Clinician Faci lity 03-31-2023 13:41-0400 Body temperature 97.59 [degF] Lanre Weber MD Work Phone: [facility] 03-31-2023 13:41-0400 Body weight 108.5 kg Lanre Weber MD Work Phone: [facility] 03-31-2023 13:41-0400 Diastolic blood pressure 78 mm[Hg] Lanre Weber MD Work Phone: [facility] 03-31-2023 13:41-0400 Heart rate 95 /min Lanre Weber MD Work Phone: [facility] 03-31-2023 13:41-0400 Respiratory rate 16 /min Lanre Weber MD Work Phone: [facility] 03-31-2023 13:41-0400 SaO2% (BldA) [Mass fraction] 96 % Lanre Weber MD Work Phone: [facility] 03-31-2023 13:41-0400 Systolic blood pressure 130 mm[Hg] Lanre Weber MD Work Phone: [facility] Encounters Encounter Date Encounter Type Care Provider Facility Start: 03-31-2023 End: 03-31-2023 ambulatory REGINO DOZIER Facility:[facility] Start: 03-31-2023 End: 03-31-2023 Patient encounter procedure Lanre Weber MD Work Phone: [facility] Procedures Date Procedure Procedure Detail Performing Clinician Start: 03-26-2018 Microscopic examinat ion of blood, culture UNKNOWN PROVIDER Plan of Treatment Date Care Activity Detail Author Start: 03-02-2023 Influenza vaccination Influenza Vacc ine (#1) [facility] Start: 07-02-2022 Depression Assessment Depression Ass essment [facility] Start: 11-30-2021 Colonoscopy Colonoscopy [facility] Start: 11-30-2021 Colorectal Cancer Screening Colorectal Cancer Screening [facility] Start: 02-14-2021 Covid-19 Vaccine (3 - Moderna series) Covid-19 Vaccine (3 - Moderna series) [facility] Start: 2020 Shingrix Vaccine (1 of 2) Shingrix V accine (1 of 2) [facility] Start: 10-17-2016 HPV Testing HPV Testing [facility] Start: 10-17-2016 Pap Testing Pap Testing [facility] Start: 12-22-2015 Cologuard (FIT-DNA) Cologuard (FIT-D NA) [facility] Start: 12-22-[address] COLONOGRAPHY [facility] Start: 12-22-2015 Diabetes Screening Diabetes Screenin g [facility] Start: 12-22-2015 Fecal Occult Blood Fecal Occult Bloo d [facility] Start: 12-22-2015 Lipid 1996 panel - S neli or Plasma Lipid Screening [facility] Start: 12-22-2015 SIGMOIDOSCOPY SIGMOIDOSCOPY [facility] Start: 2010 Mammography Mammogram Screening [facility] Start: 1989 Urine microalbumin profile DTa P,Tdap,Td Vaccine (1 - Tdap) [facility] Start: 1988 Hepatitis C Screening Hepatitis C Sc [place] [facility] Start: 1970 Hepatitis B Vaccine (1 of 3 - 3-dose series) Hepatitis B Vaccine (1 of 3 - 3-dose series) [facility] Payers Date Payer Category Payer Unknown 2018 Unknown [id number] 1970 Unknown [id number] 1970 Unknown [id number] Social History Date Type Detail Facility Start: 03-31-2023 Tobacco smoking stat us NHIS Never smoked tobacco [facility] Start: 03-31-2023 Tobacco use and exposure Smoke less tobacco non-user [facility] Start: 03-31-2023 Alcohol intake Current drinke r of alcohol (finding) [facility] Start: 06-06-2020 End: 03-31-2023 History of Social function [facility] Start: 06-06-2020 End: 03-31-2023 Tobacco use panel [facility] National Score (1-10 0), lower number is lower risk Not on file [facility] Start: 1970 Sex Assigned At Not on file C [facility] Progress note 03-31-2023 Note Date & Type Note Facility 03-31-2023 Note HNO ID: [id number] Author: Lanre Weber MD Service: ? Author Type: Physician Type: Progress Notes Filed: 03/31/2023 2:12 PM Note Text: Patient presents with: Acute Visit: DX: influenza A 03/22/23 at [facility] cough getting worse after [place] HPI: Feeling sick for 1 1/2 weeks. Tested positive for influenza A at another Urgent Care. Positive symptoms: Cough (little production), slight Shortness of breath, occasional peristernal Chest pain with cough, resolved Sore throat, Sinus pressure, Nasal Congestion, Rhinorrhea, Post nasal drainage, tussive gagging, right lateral side pain, stress urinary incontinence Negative symptoms: Fever, Chills, Vomiting, Diarrhea, OTC: tamiflu, tessalon, honey in hot water No history of asthma, wheezing with colds, or inhaler use. She has used steroid once after having COVID. Coughing reminds her of the cough she had after COVID MEDICATIONS: Current Outpatient Medications Medication Sig benzonatate (TESSALON PERLE) 100 mg capsule Take 1 capsule by mouth three times a day as needed. estradiol (ESTRACE) 0.01 % (0.1 mg/gram) vaginal cream Use vaginally as directed. losartan-hydroCHLOROthiazide (HYZAAR) 50-12.5 mg per tablet Take 1 tablet by mouth once daily. methen-sod phos-meth blue-hyos 81.6-40.8-0.12 mg tab Take 1 tablet by mouth four times a day as needed. nystatin (MYCOSTATIN) powder Apply to affected area two times a day. sertraline (ZOLOFT) 25 mg tablet Take 1 tablet by mouth once daily. solifenacin 10 mg tablet Take 1 tablet by mouth once daily. warfarin (COUMADIN) 1 mg tablet Take 1 tablet by mouth once daily. With 5 mg to = 6 mg. warfarin (COUMADIN) 5 mg tablet Take 1 tablet by mouth once daily. With 1 mg to = 6 mg. esomeprazole (NEXIUM) 20 mg capsule Take 20 mg by mouth DAILY (6 AM). gabapentin (NEURONTIN) 300 mg capsule 2 capsules three times daily Desogestrel-Ethinyl Estradiol (KARIVA) 0.15-0.02mg x21 /0.01 mg x 5 ORAL per tablet Take 1 tablet by mouth once daily. No current facility-administered medications for this visit. ALLERGIES: ALLERGIES Allergen Reactions Bactrim [Sulfametho* Shortness of Breath Hydrocodone-Acetami* Itching Imitrex [Sumatripta* GI Upset Tramadol Itching Zomig [Zolmitriptan] VITALS: BP 130/78 Pulse 95 Temp 36.4 ?C (97.6 ?F) (Left Tympanic) Resp 16 Wt 108.5 kg (239 lb 3.2 oz) LMP 05/29/2019 (Approximate) SpO2 96% BMI 39.80 kg/m? PHYSICAL EXAM: GEN: mildly ill appearing HEENT: PERRL, EOMI, conjunctiva clear Ears: canals clear. TMs without erythema, bulge, or effusion Sinuses: Pressure over frontal sinus, non-tender maxillary sinuses Throat: moist mucous membranes, mild erythema, no exudate Neck: supple, no thyromegaly, no lymphadenopathy HEART: regular rate and rhythm, no murmurs LUNGS: clear to auscultation, no wheezes or crackles, no increased WOB CHEST: No rib tenderness. ABD: Soft, non-distended, tender left upper lateral abdominal wall, no masses ASSESSMENT/PLAN: 1. Acute cough - ICD9: 786.2, ICD10: R05.1 (primary diagnosis) 2. Influenza A - ICD9: 487.1, ICD10: J10.1 X-rays not available currently, but her respiratory exam is benign. Side pain is consistent with abdominal wall strain from coughing. Continue supportive care with cough suppressant. She may add Mucinex DM. I recommended x-ray if cough is not improving next week. Follow up with worsening cough, worsening shortness of breath, increasing chest pain, or late onset fever. Lanre Weber MD [facility] History of Present illness Narrative 03-31-2023 Lanre Weber MD - 03/31/2023 1:50 PM EDT Note Date & Type Note Facility 03-31-2023 History of Presen t illness Narrative Patient presents with: Acute Visit: DX: influenza A 03/22/23 at [facility] cough getting worse after [place] HPI: Feeling sick for 1 1/2 weeks. Tested positive for influenza A at another Urgent Care. Positive symptoms: Cough (little production), slight Shortness of breath, occasional peristernal Chest pain with cough, resolved Sore throat, Sinus pressure, Nasal Congestion, Rhinorrhea, Post nasal drainage, tussive gagging, right lateral side pain, stress urinary incontinence Negative symptoms: Fever, Chills, Vomiting, Diarrhea, OTC: tamiflu, tessalon, honey in hot water No history of asthma, wheezing with colds, or inhaler use. She has used steroid once after having COVID. Coughing reminds her of the cough she had after COVID MEDICATIONS: Current Outpatient Medications Medication Sig benzonatate (TESSALON PERLE) 100 mg capsule Take 1 capsule by mouth three times a day as needed. estradiol (ESTRACE) 0.01 % (0.1 mg/gram) vaginal cream Use vaginally as directed. losartan-hydroCHLOROthiazide (HYZAAR) 50-12.5 mg per tablet Take 1 tablet by mouth once daily. methen-sod phos-meth blue-hyos 81.6-40.8-0.12 mg tab Take 1 tablet by mouth four times a day as needed. nystatin (MYCOSTATIN) powder Apply to affected area two times a day. sertraline (ZOLOFT) 25 mg tablet Take 1 tablet by mouth once daily. solifenacin 10 mg tablet Take 1 tablet by mouth once daily. warfarin (COUMADIN) 1 mg tablet Take 1 tablet by mouth once daily. With 5 mg to = 6 mg. warfarin (COUMADIN) 5 mg tablet Take 1 tablet by mouth once daily. With 1 mg to = 6 mg. esomeprazole (NEXIUM) 20 mg capsule Take 20 mg by mouth DAILY (6 AM). gabapentin (NEURONTIN) 300 mg capsule 2 capsules three times daily Desogestrel-Ethinyl Estradiol (KARIVA) 0.15-0.02mg x21 /0.01 mg x 5 ORAL per tablet Take 1 tablet by mouth once daily. No current facility-administered medications for this visit. ALLERGIES: ALLERGIES Allergen Reactions Bactrim [Sulfametho* Shortness of Breath Hydrocodone-Acetami* Itching Imitrex [Sumatripta* GI Upset Tramadol Itching Zomig [Zolmitriptan] VITALS: BP 130/78 Pulse 95 Temp 36.4 C (97.6 F) (Left Tympanic) Resp 16 Wt 108.5 kg (239 lb 3.2 oz) LMP 05/29/2019 (Approximate) SpO2 96% BMI 39.80 kg/m PHYSICAL EXAM: GEN: mildly ill appearing HEENT: PERRL, EOMI, conjunctiva clear Ears: canals clear. TMs without erythema, bulge, or effusion Sinuses: Pressure over frontal sinus, non-tender maxillary sinuses Throat: moist mucous membranes, mild erythema, no exudate Neck: supple, no thyromegaly, no lymphadenopathy HEART: regular rate and rhythm, no murmurs LUNGS: clear to auscultation, no wheezes or crackles, no increased WOB CHEST: No rib tenderness. ABD: Soft, non-distended, tender left upper lateral abdominal wall, no masses ASSESSMENT/PLAN: 1. Acute cough - ICD9: 786.2, ICD10: R05.1 (primary diagnosis) 2. Influenza A - ICD9: 487.1, ICD10: J10.1 X-rays not available currently, but her respiratory exam is benign. Side pain is consistent with abdominal wall strain from coughing. Continue supportive care with cough suppressant. She may add Mucinex DM. I recommended x-ray if cough is not improving next week. Follow up with worsening cough, worsening shortness of breath, increasing chest pain, or late onset fever. Lanre Weber MD documented in this encounter [facility] Evaluation note Note Date & Type Note Facility documented in this encounter [facility] Summary Purpose Family History No Family History Records FoundNo Family History Records Found Advance Directives No Advanced Directives Records FoundNo Advanced Directives Records Found Hospital Course Note 48 Hour Discharge Summary No tePatient ID:Kodak [id number] date: 03/20/2018Discharge date: 03/22/2018Admitting Physician: Ty De La Torre MDDischarge Physician: Jose Roberto Krishnan, DOConsults: noneAdmission Diagnoses:Kidney stone [N20.0]obesityProcedure: cystoscopy, fluroscopy, stent placementTreatment: surgery: as abovePertinent Findings and Labs noted during admission: see EpicSignificant Diagnostic Studies: See EpicDischarge Diagnoses:Kidney stone [N20.0]obesityDischarged Condition: goodHomegoing Instructions: activity as toleratedRecommended Follow-up: Follow up with Dr. Mae in 1-2 weeksDiet: regular dietDischarge Medications: Miguel Gonzalez Medication Instructions MAMTA:[id number] Printed on:03/27/18 [id number] InformationcephALEXin (KEFLEX) 500 MG capsuleTake 1 capsule by mouth 3 times dailyDesogestrel-Ethinyl Estradiol (AZURETTE PO)Take by mouthgabapentin (NEURONTIN) 600 MG tabletTake 600 mg by mouth 3 times daily..omeprazole (PRILOSEC) 2 (more content not included)... Additional Source Comments INFORMATION SOURCE (unrecogn ized section and content) DATE CREATED AUTHOR AUTHOR'S ORGANIZ ATION 04/06/2023 [facility] Source Comments (unrecognize d section and content) In the event this informatio n is protected by the Federal Confidentiality of Alcohol and Drug Abuse Patient Records regulations: The Federal rules restrict any use of the information to criminally investigate or prosecute any alcohol or drug abuse patient.[facility] Reason for Visit (unrecogniz ed section and content) Care Teams (unrecognized sec tion and content) FOR RECORDS PERTAINING TO PATIENTS WHO ARE OR HAVE BEEN ENROLLED IN A CHEMICAL DEPENDENCY/SUBSTANCEABUSE PROGRAM, SOME INFORMATION MAY BE OMITTED. This clinical summary was aggregated from multiple sources. Caution should be exercised in using it in the provision of clinical care. This summary normalizes information from multiple sources, and as a consequence, information in this document may materially change the coding, format and clinical context of patient data. In addition, data may be omitted in some cases. CLINICAL DECISIONS SHOULD BE BASED ON THE PRIMARY CLINICAL RECORDS. [facility] [employer] [facility]. provides no warranty or guarantee of the accuracy or completeness of information in this document.
[2023-07-17 10:14] LABS: Prothrombin Time (Protime)PT. 31.9 SECONDS (11.7-14.9)
== END 2023-07-17 23:59 | disposition home or self-care (01) ==
LOC: MFPLAB 08:14
PROVIDERS: PCP Family Medicine; Visit Provider Family Medicine
DX: I82.409 Acute embolism and thrombosis of unspecified deep veins of unspecified lower extremity (principal)
CPT/HCPCS: 36415; 85610

== ENCOUNTER 2023-08-03 16:52 | Outpatient (RCR) | payer BC, SELFPAY ==
[2023-08-03 18:10] LABS: International Normalized Ratio 2.7; Prothrombin Time (Protime)PT. 28.8 SECONDS (11.7-14.9)
== END 2023-08-30 18:00 | disposition home or self-care (01) ==
LOC: MTLAB 16:52
PROVIDERS: PCP Family Medicine; Referring Provider Family Medicine; Visit Provider Family Medicine
DX: I82.409 Acute embolism and thrombosis of unspecified deep veins of unspecified lower extremity (principal)
CPT/HCPCS: 36415; 85610

== ENCOUNTER → 2023-08-23 | Outpatient (CLI) | payer BC, SELFPAY ==
[2023-08-23 18:24] LABS: International Normalized Ratio 2.8; Prothrombin Time (Protime)PT. 30.2 SECONDS (11.7-14.9)
--- OUTSIDE RECORDS SUMMARY | 2023-08-23 18:41 | XMS RPT_ITS | CCD ---
Author Name Unknown Address [address] 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 Confectionery Cooker Name Role Phone PROVIDER, UNKNOWN Unavailable Unavailable Regino Dozier Unavailable Unavailable TY DE LA TORRE Unavailable Unavailable DANI MAE Unavailable Unavailable PROVIDER, UNKNOWN Unavailable Unavailable Regino Dozier Unavailable Unavailable Regino Dozier MD Primary Care Provider REGINO DOZIER Primary Care Unavailable Allergies Allergy Classification Reported Allergen(s) Allergy Type Date of Onset Reaction(s) Facility (2 sources) Acetaminophen / HYDROcodone; Translations: [HYDROCODONE-ACETAMI NOPHEN] Drug Allergy 6 Itching [facility] Work Phone: (2 sources) Sulfamethoxazole / Trimethoprim; Translations: [SULFAMETHOXAZOLE-TR IMETHOPRIM] Drug Allergy 9 Shortness of Breath [facility] Work Phone: (2 sources) SUMAtriptan; Translations: [SUMATRIPTAN] Drug Allergy 6 GI Upset [facility] (2 sources) traMADol; Translations: [TRAMADOL] Drug Allergy 6 Itching [facility] Work Phone: (2 sources) ZOLMitriptan; Translations: [ZOLMITRIPTAN] Drug Allergy 6 [facility] Medications Completed/Discontinued Medications Medication Drug Class(es) [...] 97.59 [degF] Lanre Weber MD Work Phone: [facility] 03-31-2023 13:41-0400 Body weight 108.5 kg Lanre Weber MD Work Phone: [facility] 03-31-2023 13:41-0400 Diastolic blood pressure 78 mm[Hg] Lanre Weber MD Work Phone: [facility] 03-31-2023 13:41-0400 Heart rate 95 /min Lanre Weber MD Work Phone: [facility] 03-31-2023 13:41-0400 Respiratory rate 16 /min Lanre Weber MD Work Phone: [facility] 03-31-2023 13:41-0400 SaO2% (BldA) [Mass fraction] 96 % Lanre Weber MD Work Phone: [facility] 03-31-2023 13:41-0400 Systolic blood pressure 130 mm[Hg] Lanre Weber MD Work Phone: [facility] Encounters Encounter Date Encounter Type Care Provider Facility Start: 03-31-2023 End: 03-31-2023 ambulatory REGINO DOZIER Facility:[facility] Start: 03-31-2023 End: 03-31-2023 Patient encounter procedure Lanre Weber MD Work Phone: [facility] Procedures Date Procedure Procedure Detail Performing Clinician Start: 03-26-2018 Microscopic examinat ion of blood, culture UNKNOWN PROVIDER Plan of Treatment Date Care Activity Detail Author Start: 03-02-2023 Influenza vaccination Influenza Vacc ine (#1) [facility] Start: 07-02-2022 Depression Assessment Depression Ass essment [facility] Start: 11-30-2021 Colonoscopy Colonoscopy [facility] Start: 11-30-2021 Colorectal Cancer Screening Colorectal Cancer Screening [facility] Start: 02-14-2021 Covid-19 Vaccine (3 - Moderna series) Covid-19 Vaccine (3 - Moderna series) [facility] Start: 2020 Shingrix Vaccine (1 of 2) Shingrix V accine (1 of 2) [facility] Start: 10-17-2016 HPV Testing HPV Testing [facility] Start: 10-17-2016 Pap Testing Pap Testing [facility] Start: 12-22-2015 Cologuard (FIT-DNA) Cologuard (FIT-D NA) [facility] Start: 12-22-[address] COLONOGRAPHY [facility] Start: 12-22-2015 Diabetes Screening Diabetes Screenin g [facility] Start: 12-22-2015 Fecal Occult Blood Fecal Occult Bloo d [facility] Start: 12-22-2015 Lipid 1996 panel - S neli or Plasma Lipid Screening [facility] Start: 12-22-2015 SIGMOIDOSCOPY SIGMOIDOSCOPY [facility] Start: 2010 Mammography Mammogram Screening [facility] Start: 1989 Urine microalbumin profile DTa P,Tdap,Td Vaccine (1 - Tdap) [facility] Start: 1988 Hepatitis C Screening Hepatitis C Sc [place] [facility] Start: 1970 Hepatitis B Vaccine (1 of 3 - 3-dose series) Hepatitis B Vaccine (1 of 3 - 3-dose series) [facility] Payers Date Payer Category Payer Unknown 2018 Unknown [id number] 1970 Unknown [id number] 1970 Unknown [id number] Social History Date Type Detail Facility Start: 03-31-2023 Tobacco smoking stat us NHIS Never smoked tobacco [facility] Start: 03-31-2023 Tobacco use and exposure Smoke less tobacco non-user [facility] Start: 03-31-2023 Alcohol intake Current drinke r of alcohol (finding) [facility] Start: 06-06-2020 End: 03-31-2023 History of Social function [facility] Start: 06-06-2020 End: 03-31-2023 Tobacco use panel [facility] National Score (1-10 0), lower number is lower risk Not on file [facility] Start: 1970 Sex Assigned At Not on file C [facility] Progress note 03-31-2023 Note Date & Type Note Facility 03-31-2023 Note HNO ID: [id number] Author: Lanre Weber MD Service: ? Author [...] or late onset fever. Lanre Weber MD [facility] History of Present illness Narrative 03-31-2023 Lanre [...] Lanre Weber MD documented in this encounter [facility] Evaluation note Note Date & Type Note Facility documented in this encounter [facility] Summary Purpose Family History No Family [...] Mae in 1-2 weeksDiet: regular dietDischarge Medications: Migeul Gonzalez Medication Instructions MAMTA:[id number] Printed on:03/27/18 [id number] InformationcephALEXin (KEFLEX) 500 MG capsuleTake 1 capsule by mouth 3 times dailyDesogestrel-Ethinyl Estradiol (AZURETTE PO)Take by mouthgabapentin (NEURONTIN) 600 MG tabletTake 600 mg by mouth 3 times daily..omeprazole (PRILOSEC) 2 (more content not included)... Additional Source Comments INFORMATION SOURCE (unrecogn ized section and content) DATE CREATED AUTHOR AUTHOR'S ORGANIZ ATION 04/06/2023 [facility] Source Comments (unrecognize d section and content) In the event this informatio n is protected by the Federal Confidentiality of Alcohol and Drug Abuse Patient Records regulations: The Federal rules restrict any use of the information to criminally investigate or prosecute any alcohol or drug abuse patient.[facility] Reason for Visit (unrecogniz ed section [...] BE BASED ON THE PRIMARY CLINICAL RECORDS. [facility] [employer] [facility]. provides no warranty or guarantee of the accuracy or completeness of information in this document.
== END | disposition home or self-care (01) ==
LOC: MFPLAB 14:40
PROVIDERS: PCP Family Medicine; Visit Provider Family Medicine
DX: I82.409 Acute embolism and thrombosis of unspecified deep veins of unspecified lower extremity (principal)
CPT/HCPCS: 36415; 85610

== ENCOUNTER → 2023-08-23 | Outpatient (CLI) | payer BC, SELFPAY | END | disposition home or self-care (01) | LOC: LABSPEC 10:22 | PROVIDERS: PCP Family Medicine; Visit Provider Nurse Practitioner Family | DX: R30.0 Dysuria (principal) | CPT/HCPCS: 87077; 87086; 87088; 87186 ==

== ENCOUNTER → 2023-08-31 | Outpatient (CLI) | payer BC, SELFPAY ==
--- NOTE | 2023-08-31 08:00 | CT_ITS ---
STUDY: CT ABDOMEN AND PELVIS WITHOUT CONTRAST REASON FOR EXAM: Female, 52 years old. FLANK PAIN. History of kidney stones. RADIATION DOSAGE (If Supplied By Facility): CTDIvol = ( 20.14 ) mGy, DLP = ( 1031.50 ) mGycm TECHNIQUE: Transaxial images were obtained from the dome of the diaphragm to the symphysis pubis without oral contrast, and without intravenous contrast. Sagittal and coronal images were reconstructed. Individualized dose optimization techniques were used for this CT. COMPARISON: Comparison is made with prior study dated February 17, 2022. FINDINGS: The visualized lung bases are unremarkable. The visualized portions of the heart are within normal limits. Normal liver. The patient is status post cholecystectomy. Normal spleen. Normal pancreas. Normal bilateral adrenal glands. Tiny nonobstructive right intrarenal calculi are seen. The largest calculus measures 3.5 mm. Tiny nonobstructive intrarenal calculi are seen in the left kidney. Normal visualized stomach. Normal small intestine. Normal colon. The appendix is visualized and appears normal. Normal abdominal aorta. Normal inferior vena cava. Normal retroperitoneum. The urinary bladder is empty at this time. Normal abdominal wall. There are mild degenerative changes of the visualized lumbar spine. CT/Abdomen/Pelvis without Cont IMPRESSION: Small bilateral nonobstructive intrarenal calculi. The patient is status post cholecystectomy. Electronically Signed: Sumeet Loja MD at 13:26 EST ,
--- OUTSIDE RECORDS SUMMARY | 2023-08-31 08:20 | XMS RPT_ITS | CCD ---
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 Name Role Phone PROVIDER, UNKNOWN Unavailable Unavailable [...] Translations: [HYDROCODONE-ACETAMI NOPHEN] Drug Allergy 6 Itching [facility] Work Phone: (2 sources) Sulfamethoxazole / Trimethoprim; Translations: [SULFAMETHOXAZOLE-TR IMETHOPRIM] Drug Allergy 9 Shortness of Breath [facility] Work Phone: (2 sources) SUMAtriptan; Translations: [SUMATRIPTAN] Drug Allergy 6 GI Upset [facility] (2 sources) traMADol; Translations: [TRAMADOL] Drug Allergy 6 Itching [facility] Work Phone: (2 sources) ZOLMitriptan; Translations: [ZOLMITRIPTAN] Drug Allergy 6 [facility] Medications Completed/Discontinued Medications Medication Drug Class(es) Dates [...] 97.59 [degF] Lanre Weber MD Work Phone: [facility] 03-31-2023 13:41-0400 Body weight 108.5 kg Lanre Weber MD Work Phone: [facility] 03-31-2023 13:41-0400 Diastolic blood pressure 78 mm[Hg] Lanre Weber MD Work Phone: [facility] 03-31-2023 13:41-0400 Heart rate 95 /min Lanre Weber MD Work Phone: [facility] 03-31-2023 13:41-0400 Respiratory rate 16 /min Lanre Weber MD Work Phone: [facility] 03-31-2023 13:41-0400 SaO2% (BldA) [Mass fraction] 96 % Lanre Weber MD Work Phone: [facility] 03-31-2023 13:41-0400 Systolic blood pressure 130 mm[Hg] Lanre Weber MD Work Phone: [facility] Encounters Encounter Date Encounter Type Care Provider Facility Start: 03-31-2023 End: 03-31-2023 ambulatory REGINO DOZIER Facility:[facility] Start: 03-31-2023 End: 03-31-2023 Patient encounter procedure Lanre Weber MD Work Phone: [facility] Procedures Date Procedure Procedure Detail Performing Clinician Start: 03-26-2018 Microscopic examinat ion of blood, culture UNKNOWN PROVIDER Plan of Treatment Date Care Activity Detail Author Start: 03-02-2023 Influenza vaccination Influenza Vacc ine (#1) [facility] Start: 07-02-2022 Depression Assessment Depression Ass essment [facility] Start: 11-30-2021 Colonoscopy Colonoscopy [facility] Start: 11-30-2021 Colorectal Cancer Screening Colorectal Cancer Screening [facility] Start: 02-14-2021 Covid-19 Vaccine (3 - Moderna series) Covid-19 Vaccine (3 - Moderna series) [facility] Start: 2020 Shingrix Vaccine (1 of 2) Shingrix V accine (1 of 2) [facility] Start: 10-17-2016 HPV Testing HPV Testing [facility] Start: 10-17-2016 Pap Testing Pap Testing [facility] Start: 12-22-2015 Cologuard (FIT-DNA) Cologuard (FIT-D NA) [facility] Start: 12-22-[address] [facility] Start: 12-22-2015 Diabetes Screening Diabetes Screenin g [facility] Start: 12-22-2015 Fecal Occult Blood Fecal Occult Bloo d [facility] Start: 12-22-2015 Lipid 1996 panel - S neli or Plasma Lipid Screening [facility] Start: 12-22-2015 SIGMOIDOSCOPY SIGMOIDOSCOPY [facility] Start: 2010 Mammography Mammogram Screening [facility] Start: 1989 Urine microalbumin profile DTa P,Tdap,Td Vaccine (1 - Tdap) [facility] Start: 1988 Hepatitis C Screening Hepatitis C Sc sohamning [facility] Start: 1970 Hepatitis B Vaccine (1 of 3 - 3-dose series) Hepatitis B Vaccine (1 of 3 - 3-dose series) [facility] Payers Date Payer Category Payer Unknown 2018 Unknown [id number] 1970 Unknown [id number] 1970 Unknown [id number] Social History Date Type Detail Facility Start: 03-31-2023 Tobacco smoking stat us NHIS Never smoked tobacco [facility] Start: 03-31-2023 Tobacco use and exposure Smoke less tobacco non-user [facility] Start: 03-31-2023 Alcohol intake Current drinke r of alcohol (finding) [facility] Start: 06-06-2020 End: 03-31-2023 History of Social function [facility] Start: 06-06-2020 End: 03-31-2023 Tobacco use panel [facility] National Score (1-10 0), lower number is lower risk Not on file [facility] Start: 1970 Sex Assigned At Not on file C [facility] Progress note 03-31-2023 Note Date & Type Note Facility 03-31-2023 Note HNO ID: [id number] Author: Lanre Weber MD Service: ? Author [...] or late onset fever. Lanre Weber MD [facility] History of Present illness Narrative [...] Lanre Weber MD documented in this encounter [facility] Evaluation note Note Date & Type Note Facility documented in this encounter [facility] Summary Purpose Family History No Family History [...] regular dietDischarge Medications: Miguel Gonzalez Medication Instructions MAMTA:[id number] Printed on:03/27/18 5712Medication InformationcephALEXin (KEFLEX) 500 MG capsuleTake 1 capsule by mouth 3 times dailyDesogestrel-Ethinyl Estradiol (AZURETTE PO)Take by mouthgabapentin (NEURONTIN) 600 MG tabletTake 600 mg by mouth 3 times daily..omeprazole (PRILOSEC) 2 (more content not included)... Additional Source Comments INFORMATION SOURCE (unrecogn ized section and content) DATE CREATED AUTHOR AUTHOR'S ORGANIZ ATION 04/06/2023 [facility] Source Comments (unrecognize d section and content) In the event this informatio n is protected by the Federal Confidentiality of Alcohol and Drug Abuse Patient Records regulations: The Federal rules restrict any use of the information to criminally investigate or prosecute any alcohol or drug abuse patient.[facility] Reason for Visit (unrecogniz ed section and [...] BE BASED ON THE PRIMARY CLINICAL RECORDS. [facility] [employer] [facility]. provides no warranty or guarantee of the accuracy or completeness of information in this document.
== END | disposition home or self-care (01) ==
LOC: CT 07:58
PROVIDERS: PCP Family Medicine; Visit Provider Urology
DX: R10.9 Unspecified abdominal pain (principal); R39.15 Urgency of urination
CPT/HCPCS: 74176

== ENCOUNTER → 2023-09-20 | Outpatient (CLI) | payer BC, SELFPAY ==
[2023-09-20 17:45] LABS: International Normalized Ratio 3.4; Prothrombin Time (Protime)PT. 34.2 SECONDS (11.7-14.9)
== END | disposition home or self-care (01) ==
LOC: MFPLAB 16:32
PROVIDERS: PCP Family Medicine; Visit Provider Family Medicine
DX: I82.409 Acute embolism and thrombosis of unspecified deep veins of unspecified lower extremity (principal)
CPT/HCPCS: 36415; 85610

== ENCOUNTER → 2023-10-03 | Outpatient (CLI) | payer BC, SELFPAY ==
[2023-10-03 18:05] LABS: International Normalized Ratio 1.2; Prothrombin Time (Protime)PT. 14.8 SECONDS (11.7-14.9)
== END | disposition home or self-care (01) ==
LOC: MFPLAB 15:01
PROVIDERS: PCP Family Medicine; Visit Provider Family Medicine
DX: I82.409 Acute embolism and thrombosis of unspecified deep veins of unspecified lower extremity (principal)
CPT/HCPCS: 36415; 85610

== ENCOUNTER → 2023-10-11 | Outpatient (CLI) | payer BC, SELFPAY ==
[2023-10-11 18:08] LABS: International Normalized Ratio 3.7; Prothrombin Time (Protime)PT. 36.3 SECONDS (11.7-14.9)
== END | disposition home or self-care (01) ==
LOC: MFPLAB 14:46
PROVIDERS: PCP Family Medicine; Visit Provider Family Medicine
DX: I82.409 Acute embolism and thrombosis of unspecified deep veins of unspecified lower extremity (principal)
CPT/HCPCS: 36415; 85610

== ENCOUNTER → 2023-10-19 | Outpatient (CLI) | payer BC, SELFPAY ==
[2023-10-19 18:09] LABS: Prothrombin Time (Protime)PT. 43.1 SECONDS (11.7-14.9)
[2023-10-19 18:24] LABS: International Normalized Ratio 4.6
== END | disposition home or self-care (01) ==
LOC: MFPLAB 16:34
PROVIDERS: PCP Family Medicine; Visit Provider Family Medicine
DX: I82.409 Acute embolism and thrombosis of unspecified deep veins of unspecified lower extremity (principal)
CPT/HCPCS: 36415; 85610

== ENCOUNTER 2023-10-26 16:30 | Outpatient (RCR) | payer BC, SELFPAY ==
[2023-10-26 17:47] LABS: International Normalized Ratio 1.8; Prothrombin Time (Protime)PT. 21.1 SECONDS (11.7-14.9)
== END 2023-10-30 22:19 | disposition home or self-care (01) ==
LOC: MTLAB 16:30
PROVIDERS: PCP Family Medicine; Referring Provider Family Medicine; Visit Provider Family Medicine
DX: I82.409 Acute embolism and thrombosis of unspecified deep veins of unspecified lower extremity (principal)
CPT/HCPCS: 85610

== ENCOUNTER 2023-11-02 11:41 | Outpatient (RCR) | payer BC, SELFPAY ==
[2023-11-02 15:26] LABS: International Normalized Ratio 2.6; Prothrombin Time (Protime)PT. 27.8 SECONDS (11.7-14.9)
[2023-11-02 15:59] LABS: Anion Gap 8 (5-15); BUN 11 mg/dL (7-18); BUN/Creat Ratio 12.5 RATIO (10-20); Calcium,Total 9.7 mg/dL (8.5-10.1); Chloride 105 mmol/L (98-107); Cholesterol 245 mg/dL (200); Creatinine, Serum 0.88 mg/dL (0.55-1.02); EST Glomerular Filtration Rate 72 mL/min (>60); Est Glom Filt Rate - Afr Amer 87 mL/min (>60); Glucose 100 mg/dL (74-106); High Density Lipoprotein 51 mg/dL; Potassium 3.2 mmol/L (3.5-5.1); Sodium Level 139 mmol/L (136-145); Triglycerides 255 mg/dL; Very Low Density Lipoprotein 51 mg/dL (5-40)
== END 2023-11-30 18:00 | disposition home or self-care (01) ==
LOC: MTLAB 11:41
PROVIDERS: PCP Family Medicine; Referring Provider Family Medicine; Visit Provider Family Medicine
DX: I82.409 Acute embolism and thrombosis of unspecified deep veins of unspecified lower extremity (principal); I10 Essential (primary) hypertension
CPT/HCPCS: 36415; 80048; 80061; 85610

== ENCOUNTER → 2023-11-22 | Outpatient (CLI) | payer BC, SELFPAY ==
[2023-11-22 15:39] LABS: International Normalized Ratio 5.6
[2023-11-22 16:00] LABS: Anion Gap 6 (5-15); BUN 14 mg/dL (7-18); BUN/Creat Ratio 14.8 RATIO (10-20); Calcium,Total 9.2 mg/dL (8.5-10.1); Chloride 105 mmol/L (98-107); Creatinine, Serum 0.95 mg/dL (0.55-1.02); EST Glomerular Filtration Rate 66 mL/min (>60); Est Glom Filt Rate - Afr Amer 80 mL/min (>60); Glucose 106 mg/dL (74-106); Potassium 3.6 mmol/L (3.5-5.1); Sodium Level 136 mmol/L (136-145)
[2023-11-22 16:18] LABS: Prothrombin Time (Protime)PT. 50.3 SECONDS (11.7-14.9)
== END | disposition home or self-care (01) ==
LOC: MFPLAB 13:56
PROVIDERS: PCP Family Medicine; Visit Provider Family Medicine
DX: Z51.81 Encounter for therapeutic drug level monitoring (principal); Z79.01 Long term (current) use of anticoagulants; E87.6 Hypokalemia
CPT/HCPCS: 36415; 80048; 85610

== ENCOUNTER → 2023-11-29 | Outpatient (CLI) | payer BC, SELFPAY ==
[2023-11-29 17:56] LABS: International Normalized Ratio 2.6; Prothrombin Time (Protime)PT. 27.4 SECONDS (11.7-14.9)
[2023-11-29 18:18] LABS: Anion Gap 7 (5-15); BUN 16 mg/dL (7-18); BUN/Creat Ratio 19.8 RATIO (10-20); Calcium,Total 9.4 mg/dL (8.5-10.1); Chloride 107 mmol/L (98-107); Creatinine, Serum 0.81 mg/dL (0.55-1.02); EST Glomerular Filtration Rate 79 mL/min (>60); Est Glom Filt Rate - Afr Amer 95 mL/min (>60); Glucose 91 mg/dL (74-106); Potassium 3.6 mmol/L (3.5-5.1); Sodium Level 139 mmol/L (136-145)
== END | disposition home or self-care (01) ==
LOC: MFPLAB 16:14
PROVIDERS: PCP Family Medicine; Visit Provider Family Medicine
DX: E87.6 Hypokalemia (principal); Z51.81 Encounter for therapeutic drug level monitoring
CPT/HCPCS: 36415; 80048; 85610

== ENCOUNTER → 2023-12-25 | Outpatient (CLI) | payer BC, SELFPAY | END | disposition home or self-care (01) | PROVIDERS: PCP Family Medicine; Referring Provider Physician Assistant; Visit Provider Physician Assistant | DX: N39.0 Urinary tract infection, site not specified (principal) | CPT/HCPCS: 87086; 87088; 87186 ==

== ENCOUNTER 2023-12-31 16:07 | Outpatient (RCR) | payer BC, SELFPAY ==
[2023-12-31 18:06] LABS: International Normalized Ratio 2.4; Prothrombin Time (Protime)PT. 26.3 SECONDS (11.7-14.9)
== END 2024-01-30 18:00 | disposition home or self-care (01) ==
LOC: MTLAB 16:07
PROVIDERS: PCP Family Medicine; Referring Provider Family Medicine; Visit Provider Family Medicine
DX: I82.409 Acute embolism and thrombosis of unspecified deep veins of unspecified lower extremity (principal)
CPT/HCPCS: 36415; 85610

== ENCOUNTER → 2024-01-30 | Outpatient (CLI) | payer BC, SELFPAY ==
[2024-01-30 10:36] LABS: International Normalized Ratio 1.9
== END | disposition home or self-care (01) ==
LOC: MFPLAB 09:01
PROVIDERS: PCP Family Medicine; Visit Provider Family Medicine
DX: I82.409 Acute embolism and thrombosis of unspecified deep veins of unspecified lower extremity (principal)
CPT/HCPCS: 36415; 85610

== ENCOUNTER 2024-02-29 15:58 | Outpatient (RCR) | payer BC, SELFPAY ==
[2024-02-29 17:49] LABS: International Normalized Ratio 2.4; Prothrombin Time (Protime)PT. 25.8 SECONDS (11.7-14.9)
== END 2024-02-29 18:00 | disposition home or self-care (01) ==
LOC: MTLAB 15:58
PROVIDERS: PCP Family Medicine; Referring Provider Family Medicine; Visit Provider Family Medicine
DX: I82.409 Acute embolism and thrombosis of unspecified deep veins of unspecified lower extremity (principal)
CPT/HCPCS: 36415; 85610

== ENCOUNTER 2024-04-02 16:24 | Outpatient (RCR) | payer BC, SELFPAY | END 2024-04-02 18:00 | disposition home or self-care (01) | LOC: MTLAB 16:24 | PROVIDERS: PCP Family Medicine; Referring Provider Family Medicine; Visit Provider Family Medicine | DX: I82.409 Acute embolism and thrombosis of unspecified deep veins of unspecified lower extremity (principal) ==

== ENCOUNTER → 2024-05-12 | Outpatient (CLI) | payer BC, SELFPAY ==
[2024-05-12 18:02] LABS: Prothrombin Time (Protime)PT. 30.7 SECONDS (11.7-14.9)
== END | disposition home or self-care (01) ==
LOC: MFPLAB 15:52
PROVIDERS: PCP Family Medicine; Visit Provider Family Medicine
DX: I82.409 Acute embolism and thrombosis of unspecified deep veins of unspecified lower extremity (principal)
CPT/HCPCS: 36415; 85610

== ENCOUNTER → 2024-06-30 | Outpatient (CLI) | payer BC, SELFPAY ==
[2024-06-30 14:26] LABS: International Normalized Ratio 2.4; Prothrombin Time (Protime)PT. 26.6 SECONDS (11.7-14.9)
== END | disposition home or self-care (01) ==
LOC: MFPLAB 10:49
PROVIDERS: PCP Family Medicine; Referring Provider Family Medicine; Visit Provider Family Medicine
DX: I82.409 Acute embolism and thrombosis of unspecified deep veins of unspecified lower extremity (principal)
CPT/HCPCS: 36415; 85610

== ENCOUNTER → 2024-07-11 | Outpatient (CLI) | payer BC, SELFPAY ==
[2024-07-11 17:56] LABS: Hematocrit 35.9 % (37-47); Mean Corp Hgb Conc 30.6 g/dL (32-36); Mean Corpuscular Hgb 24.3 pg (27.0-32.0); Mean Corpuscular Volume 79.4 fL (81-99); Mean Platelet Vol. 9.5 fl (6.2-12.0); Platelet Count 439 K/mm3 (150-450); RBC Distribution Width SD 43.1 fl (35.1-43.9); Red Blood Count 4.52 M/mm3 (4.2-5.4); White Blood Count 10.9 K/mm3 (4.4-11.0)
== END | disposition home or self-care (01) ==
LOC: MFPLAB 14:54
PROVIDERS: PCP Family Medicine; Referring Provider Family Medicine; Visit Provider Family Medicine
DX: D64.9 Anemia, unspecified (principal)
CPT/HCPCS: 36415; 85027

== ENCOUNTER → 2024-08-14 | Outpatient (CLI) | payer BC, SELFPAY ==
[2024-08-14 17:42] LABS: International Normalized Ratio 3.3; Prothrombin Time (Protime)PT. 34.2 SECONDS (11.7-14.9)
== END | disposition home or self-care (01) ==
LOC: MFPLAB 15:24
PROVIDERS: PCP Family Medicine; Referring Provider Family Medicine; Visit Provider Family Medicine
DX: I82.409 Acute embolism and thrombosis of unspecified deep veins of unspecified lower extremity (principal)
CPT/HCPCS: 36415; 85610

== ENCOUNTER → 2024-08-27 | Outpatient (CLI) | payer BC, SELFPAY ==
[2024-08-27 15:32] LABS: International Normalized Ratio 2.6; Prothrombin Time (Protime)PT. 28.5 SECONDS (11.7-14.9)
== END | disposition home or self-care (01) ==
LOC: MFPLAB 11:44
PROVIDERS: PCP Family Medicine; Referring Provider Family Medicine; Visit Provider Family Medicine
DX: I82.409 Acute embolism and thrombosis of unspecified deep veins of unspecified lower extremity (principal)
CPT/HCPCS: 36415; 85610

== ENCOUNTER → 2024-08-28 | Outpatient (CLI) | payer BC, SELFPAY ==
[2024-08-28 11:41] LABS: Vitamin D,25 Hydroxy 13.1 ng/mL (30-100)
== END | disposition home or self-care (01) ==
LOC: BWCLAB 09:59
PROVIDERS: PCP Family Medicine; Referring Provider Nurse Practitioner Women's Health; Visit Provider Nurse Practitioner Women's Health
DX: Z00.00 Encounter for general adult medical examination without abnormal findings (principal); Z80.0 Family history of malignant neoplasm of digestive organs
CPT/HCPCS: 36415; 82306

== ENCOUNTER → 2024-09-05 | Outpatient (CLI) | payer BC, SELFPAY ==
--- NOTE | 2024-09-05 12:34 | US_ITS ---
PROCEDURE: PELVIC W/ TRANSVAGINAL REASON FOR EXAM: Abnormal uterine bleeding. TECHNIQUE: Transabdominal and transvaginal pelvic ultrasound COMPARISON: None. FINDINGS: LMP: August 16, 2024. Measurements: Uterus: 8.4 cm x 4.6 cm x 3.1 cm with a volume of 63.7 mL Endometrial Thickness: 7 mm Right Ovary: Nonvisualized. Left Ovary: 2.1 cm x 2 cm x 1.7 cm with a volume of 3.75 mL. TRANSABDOMINAL: Uterus: Small fibroids are seen. The largest measures 1.1 cm x 1.2 cm x 1.2 cm. Endometrium: Endometrium measures 7 mm. Right ovary: Nonvisualized. Left ovary: Normal size and echotexture. No large pelvic mass identified. Transvaginal sonography was performed to better visualize the endometrium. TRANSVAGINAL: Uterus: Anteverted. Small fibroids. Endometrium: Normal echotexture. Right ovary: Nonvisualized. Left ovary: Normal size and echotexture. Other adnexal findings: None. Cul-de-sac: No free intraperitoneal fluid identified. No tenderness. US/Pelvic w/ Transvaginal IMPRESSION: Small uterine fibroids. Endometrium measures 7 mm. Reading Location: [facility]
== END | disposition home or self-care (01) ==
LOC: US 12:23
PROVIDERS: PCP Family Medicine; Referring Provider Nurse Practitioner Women's Health; Visit Provider Nurse Practitioner Women's Health
DX: N93.9 Abnormal uterine and vaginal bleeding, unspecified (principal); N85.2 Hypertrophy of uterus
CPT/HCPCS: 76830; 76856

== ENCOUNTER → 2024-09-11 | Outpatient (CLI) | payer BC, SELFPAY ==
--- NOTE | 2024-09-11 12:00 | BI_ITS ---
PROCEDURE: SCRN MAMM (CAD)W/AMBER BILAT REASON FOR EXAM: SCREENING FOR BREAST CANCER No family history. COMPARISON: Baseline TECHNIQUE: Bilateral screening digital breast tomosynthesis with C-View and 2D FFDM. Computer aided detection. FINDINGS: There are scattered areas of fibroglandular density. No evidence of mass lesion. No suspicious microcalcifications are seen. BI/SCRN MAMM (CAD)W/AMBER BILAT IMPRESSION: BI-RADS 1: NEGATIVE. RECOMMEND ANNUAL MAMMOGRAPHIC SCREENING. Routine follow-up. The patient will be notified of the results by letter. Reading Location: [facility]
== END | disposition home or self-care (01) ==
LOC: OPBI 11:50
PROVIDERS: PCP Family Medicine; Referring Provider Nurse Practitioner Women's Health; Visit Provider Nurse Practitioner Women's Health
DX: Z12.31 Encounter for screening mammogram for malignant neoplasm of breast (principal)
CPT/HCPCS: 77063; 77067

== ENCOUNTER 2024-09-29 10:28 | Outpatient (RCR) | payer BC, SELFPAY ==
[2024-09-29 12:11] LABS: International Normalized Ratio 2.2; Prothrombin Time (Protime)PT. 25.1 SECONDS (11.7-14.9)
[2024-09-29 12:19] LABS: Absolute Lymphocyte Count 2.68 X10^3/uL (0.83-4.51); Basophil# 0.04 X10^3/uL; Basophil% 0.4 % (0-1); Eosinophil# 0.22 X10^3/uL; Eosinophils% 2.4 % (0-5); Hematocrit 33.9 % (37-47); Hemoglobin 10.6 g/dL (12.0-15.0); Lymphocyte # 2.68 X10^3/ul (0.83-4.51); Lymphocyte % 28.6 % (19-41); Mean Corp Hgb Conc 31.3 g/dL (32-36); Mean Corpuscular Hgb 23.8 pg (27.0-32.0); Mean Platelet Vol. 9.5 fl (6.2-12.0); Monocyte# 0.42 X10^3/uL; Monocyte% 4.5 % (0-10); NRBC Flagged by Analyzer 0 % (0-5); Neutrophil # 5.97 X10^3/uL (2.7-7.7); Neutrophil % 63.8 % (47-70); Platelet Count 474 K/mm3 (150-450); RBC Distribution Width CV 15.9 % (11.6-14.6); RBC Distribution Width SD 43.9 fl (35.1-43.9); Red Blood Count 4.46 M/mm3 (4.2-5.4); White Blood Count 9.4 K/mm3 (4.4-11.0)
== END 2024-09-29 18:00 | disposition home or self-care (01) ==
LOC: MTLAB 10:28
PROVIDERS: PCP Family Medicine; Referring Provider Family Medicine; Visit Provider Family Medicine
DX: I82.409 Acute embolism and thrombosis of unspecified deep veins of unspecified lower extremity (principal)
CPT/HCPCS: 36415; 85025; 85610

== ENCOUNTER → 2024-10-20 | Outpatient (CLI) | payer BC, SELFPAY ==
[2024-10-20 19:28] LABS: International Normalized Ratio 2.3; Prothrombin Time (Protime)PT. 25.4 SECONDS (11.7-14.9)
== END | disposition home or self-care (01) ==
LOC: MFPLAB 14:20
PROVIDERS: PCP Family Medicine; Referring Provider Family Medicine; Visit Provider Family Medicine
DX: D50.9 Iron deficiency anemia, unspecified (principal)
CPT/HCPCS: 36415; 85610

== ENCOUNTER → 2024-10-23 | Outpatient (CLI) | payer BC, SELFPAY | END | disposition home or self-care (01) | LOC: MTLAB 14:12 | PROVIDERS: PCP Family Medicine; Referring Provider Family Medicine; Visit Provider Family Medicine | DX: R19.7 Diarrhea, unspecified (principal) | CPT/HCPCS: 87493; 87506 ==

== ENCOUNTER 2024-10-31 06:27 | Day surgery (SDC) | payer BC, SELFPAY ==
[2024-10-31] VITALS (7 sets, daily range): BP systolic 108–130; BP diastolic 66–76; PULSE 78–99; RESP 14–16; TEMP 36.1–36.7; O2SAT 98–100; BMI 38.4
[2024-10-31 06:38] LABS: INR Fingerstick 1.2; Prothrombin Time Fingerstick 14.2 SEC (11.7-14.9)
--- NOTE | 2024-10-31 06:43 | PRE.ANES_ITS ---
ASA Classification* ASA Classification ASA Classification: 2 Assessment & Plan Anesthesia* Anesthesia Assessment Anesthesia Assessment: Discussed sedation and/or anesthesia options, risks, benefits, and alternatives with patient/parents/legal guardian/POA. Questions invited. The patient/parents/legal guardian/POA seems to understand and agrees to proceed with anesthesia plan. Reviewed the physical assessment, medical history, allergy history and patient home medications list prior to surgery/procedure/anesthetic and documented any changes. Performed airway and anesthesia risk assessments. Anesthesia Type Anesthesia Type: MAC Anesthesia Focused Assessment* Airway Assessment Mouth opens: >3 cm Mallampati Score: II Focused Labs Anesthesia Preop lab: CBC WBC 9.4 K/mm3 (4.4-11.0) 09/29/24 10:43 09/29/24 RBC 4.46 M/mm3 (4.2-5.4) 09/29/24 10:43 09/29/24 Hgb 10.6 g/dL (12.0-15.0) L 09/29/24 10:43 5 Hct 33.9 % (37-47) L 09/29/24 10:43 09/29/24 Plt Count 474 K/mm3 (150-450) H 09/29/24 10:43 09/29/24 CHEMISTRY Potassium 3.6 mmol/L (3.5-5.1) 11/29/23 16:14 11/29/23 Sodium 139 mmol/L (136-145) 11/29/23 16:14 11/29/23 BUN 16 mg/dL (7-18) 11/29/23 16:14 11/29/23 Creatinine 0.81 mg/dL (0.55-1.02) 11/29/23 16:14 11/29/23 Glucose 91 mg/dL (74-106) 11/29/23 16:14 11/29/23 POC Glucose 102 mg/dL (70-110) 12/26/14 22:19 12/26/14 TSH 1.55 uIU/mL (0.358-3.74) 11/02/22 11:40 COAG PT 25.4 SECONDS (11.7-14.9) H 10/20/24 14:20 10/01 07/26 Tst Clinic Negative 02/09/20 16:58 02/09/20 Pre-Assessment Diagnosis/Proposed Procedure Planned Operative Procedure(s): CSCOPE Anesthesia History 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 When Was Last Pacemaker Check QUESTION #4 FULL TEXT: You/Your Family Experience fever (hyperthermia) with Anesthesia Last Oral Intake Last Oral intake: Last Oral Intake NPO since Meds taken in AM with sips of water? 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 Female Yes 10/09/24 16:31 HX of Motion Sickness No 10/09/24 16:31 HX of N/V After Surgery No 10/09/24 16:31 Non-Smoker Yes 10/09/24 16:31 Duration of Surgery greater No 10/09/24 16:31 than 60 minutes Number of Risk Factors 2 10/09/24 16:31 PONV Score Moderate Risk 10/09/24 16:31 Height & Weight Height & Weight: Anesthesia: Height & Weight Height 5 ft 6 in 09/03/24 10:00 Respiratory Assessment Respiratory Assessment - gelatin dynamite packing operator: Respiratory Tract Infection Hx - gelatin dynamite packing operator Hx Respiratory Tract Infection No 10/09/24 16:31 STOP Sleep Apnea STOP Sleep Apnea - gelatin dynamite packing operator: STOP Sleep Apnea - gelatin dynamite packing operator Hx Hypertension Yes: CONTROLLED WITH MED 10/09/24 16:31 Hx Sleep Apnea No 10/09/24 16:31 CPAP BIPAP Do you snore loudly (louder No 10/09/24 16:31 than talking or can be heard Do you often feel tired/ Yes 10/09/24 16:31 fatigued/ sleepy during daytime? Has anyone observed you stop No 10/09/24 16:31 breathing during sleep? STOP Results Positive 04/10/25 16:31 QUESTION #5 FULL TEXT : Do you snore loudly (louder than talking or can be heard through closed doors)? 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 Specify any problems Hx of Preganancy in last 3 No 10/09/24 16:31 Months Nurse Filling Out Transfusion DSCHRIBER 10/09/24 16:31 & Questions: Date: 10/09/24 10/09/24 16:31 Time: 16:33 10/09/24 16:31 Patient unable to answer at this time (ie. 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: /Reproductive Hx- gelatin dynamite packing operator Hx Now No 10/09/24 16:31 Gestational Age (in weeks): EDC: Hx Hx Para Hx Section SAB No 10/09/24 16:31 Active Medications Active Medications: Current Medications Generic Name Dose Route Start Last Admin Trade Name Freq PRN Reason Stop Dose Admin Lactated Ringer's 1,000 mls @ 15 mls/hr 10/31/24 06:30 IV .Q48H SHIKHA PFSH Medical History Wears dentures Wears glasses Anxiety Depression Alcohol use Interstitial cystitis High cholesterol Back pain Headache Gastric reflux Shortness of breath on exertion Non-smoker History of pain when walking Chest pain DVT (deep venous thrombosis) Impacted cerumen, right ear Chronic fatigue syndrome Fibromyalgia HTN (hypertension) Home Medications ?Medication ?Instructions ?Recorded ?Last Taken ?Type losartan 50 mg-hydrochlorothiazide 1 tab PO DAILY 01/30 Unknown History 12.5 mg tablet gabapentin 300 mg capsule 600 mg PO TID 07/01/20 Unkno wn History omeprazole 20 mg capsule,delayed 20 mg PO DAILY Unknown History release potassium chloride 10 mEq 10 meq PO QDAY 05/09/24 Unkn own History tablet,extended release sertraline 25 mg tablet 25 mg PO QDAY 05/09/24 Unkno wn History warfarin 4 mg tablet 4 mg PO QDAY 05/09/24 Unknow n History d-mannose 500 mg capsule 1,500 mg PO TID 08/28/24 Unk nown History methenamine 81.6 mg-sod phos 40.8 1 tab PO ONCE Unknown History mg-methylene blue 0.12mg-hyos tablet (Urogesic-Blue) mirabegron 50 mg tablet,extended 50 mg PO QDAY 5 Unknown History release 24 hr (Myrbetriq) rosuvastatin 5 mg tablet 5 mg PO QDAY 08/28/24 Unknow n History solifenacin 10 mg tablet 10 mg PO QHS 08/28/24 Unknow n History desogestrel-e.estradiol 0.15 1 tab PO DAILY 10/09/24 U nknown History mg-0.02 mg(21)/e.estrad 0.01 mg(5) tablet (Azurette (28)) Allergy/AdvReac Type Severity Reaction Status Date / Time acetaminophen (From Percocet) Allergy Itching Verified 10/09/24 16:27 hydrocodone bitartrate (From Allergy Itching Verified 10/09/24 16:27 Vicodin) oxycodone (From Percocet) Allergy Itching Verified 10/09/24 16:27 sulfamethoxazole (From Allergy Itching Verified 10/09/24 16:27 Bactrim) tramadol Allergy Itching Verified 10/09/24 16:27 trimethoprim (From Bactrim) Allergy Itching Verified 10/09/24 16:27 Family History Mother Colon cancer Hypertension Heart disease CVA (cerebral vascular accident) Father Cancer Prostate Surgical History Hx of colonoscopy Hx of lithotripsy History of cholecystectomy Social History Smoking Status: Never smoker alcohol intake: never substance use type: does not use Review of Systems (Anesthesia) ROS Narrative System reviewed and no additional complaints, except as documented.
[2024-10-31] MEDS: Lactated Ringers 1,000 ML 15 ML IV (07:08)
[2024-10-31 07:24] LABS: Internal QC Validated? YES +Cl - CLEAR BKGD; Pregnancy, Serum, hCG Quali. NEGATIVE Negative
--- NOTE | 2024-10-31 07:45 | PCM.HP.STD ---
HPI - General General Date of Admission: 10/31/24 Date of Service: 10/31/24 Chief Complaint: colonoscopy HPI Narrative The patient is a 53-year-old female who is being seen today for a colonoscopy. She states that her last colonoscopy was about 12 years ago at the age of 41. She had no polyps at that time. Her mother developed colon cancer in her late 50s. Patient denies any blood in her stools. No black or tarry stools. She has had some recent diarrhea for the past month. Otherwise has no GI issues or complaints. [facility] Medical History Wears dentures Wears glasses Anxiety Depression Alcohol use Interstitial cystitis High cholesterol Back pain Headache Gastric reflux Shortness of breath on exertion Non-smoker History of pain when walking Chest pain DVT (deep venous thrombosis) Impacted cerumen, right ear Chronic fatigue syndrome Fibromyalgia HTN (hypertension) Home Medications ?Medication ?Instructions ?Recorded ?Last Taken ?Type losartan 50 mg-hydrochlorothiazide 1 tab PO DAILY 02/09/20 10/31/24 05:30 History 12.5 mg tablet gabapentin 300 mg capsule 600 mg PO TID 07/01/20 10/30/24 History omeprazole 20 mg capsule,delayed 20 mg PO DAILY 07/01/20 10/31/24 05:30 History release potassium chloride 10 mEq 10 meq PO QDAY 05/09/24 10/30/24 History tablet,extended release sertraline 25 mg tablet 25 mg PO QDAY 05/09/24 10/30/24 History warfarin 4 mg tablet 4 mg PO QDAY 05/09/24 10/25/24 History d-mannose 500 mg capsule 1,500 mg PO TID 08/28/24 10/30/24 History methenamine 81.6 mg-sod phos 40.8 1 tab PO ONCE 08/28/24 10/30/24 History mg-methylene blue 0.12mg-hyos tablet (Urogesic-Blue) mirabegron 50 mg tablet,extended 50 mg PO QDAY 08/28/24 10/30/24 History release 24 hr (Myrbetriq) rosuvastatin 5 mg tablet 5 mg PO QDAY 08/28/24 10/30/24 History solifenacin 10 mg tablet 10 mg PO QHS 08/28/24 10/30/24 History desogestrel-e.estradiol 0.15 1 tab PO DAILY 10/09/24 10/30/24 History mg-0.02 mg(21)/e.estrad 0.01 mg(5) tablet (Azurette (28)) Allergy/AdvReac Type Severity Reaction Status Date / Time acetaminophen (From Percocet) Allergy Itching Verified 10/31/24 06:58 hydrocodone bitartrate (From Allergy Itching Verified 10/31/24 06:58 Vicodin) oxycodone (From Percocet) Allergy Itching Verified 10/31/24 06:58 sulfamethoxazole (From Allergy Itching Verified 10/31/24 06:58 Bactrim) tramadol Allergy Itching Verified 10/31/24 06:58 trimethoprim (From Bactrim) Allergy Itching Verified 10/31/24 06:58 Family History Mother Colon cancer Hypertension Heart disease CVA (cerebral vascular accident) Father Cancer Prostate Surgical History Hx of colonoscopy Hx of lithotripsy History of cholecystectomy Social History Smoking Status: Never smoker alcohol intake: never substance use type: does not use Vital Signs Vital Signs Vital Signs: 10/31/24 07:02 10/31/24 07:05 Temperature 97.0 F L Temperature Source Temporal Pulse Rate 99 Respiratory Rate 14 Respiratory Pattern Normal Blood Pressure 130/76 H Blood Pressure Mean 94 Blood Pressure Source Monitor Blood Pressure Position Semi-Fowlers Blood Pressure Location Left Arm Pulse Ox 98 Oxygen Delivery Method Room Air Weight Weight: 210 lb Body Mass Index (BMI) 38.4 Physical Exam Const alert, oriented x3 and no apparent distress Results Lab / Micro Data Labs: Laboratory Results - last 24 hr 10/31/24 06:36: POC PT 14.2, INR 1.2 10/31/24 07:03: Serum , Qual NEGATIVE Assessment & Plan Assessment/Plan (1) Family history of colon cancer in mother: Charges/Coding Visit Charges Inpatient E&M: 56273 Init Hosp L1
--- NOTE | 2024-10-31 08:18 | OP.CCLET_ITS ---
10/31/2024 Regino Venegas MD [address] [id number] Re : Colonoscopy procedure for Suni Gonzalez Dear Dr. Venegas This procedure was performed on Thursday, October 31, 2024. My impressions and recommendations are as follows: Impressions : - Diverticulosis in the sigmoid colon. - The entire examined colon is normal on direct and retroflexion views. - No specimens collected. Recommendations : - Discharge patient to home (ambulatory). - High fiber diet. - Repeat colonoscopy in 10 years for screening purposes. - Return to my office PRN. - Continue present medications. My findings are described in the full procedure note, which is enclosed. If I can be of further assistance, please feel free to contact me at . Sincerely, Franki Mas MD 10/31/2024 8:18:25 AM This report has been signed electronically.
--- NOTE | 2024-10-31 08:18 | OP.COLON_ITS ---
Patient Name: Suni Gonzalez Procedure Date: 10/31/2024 7:25 AM Date of : 1970 Age: 53 Procedure: Colonoscopy Indications: Screening in patient at increased risk: Family history of 1st-degree relative with colorectal cancer Providers: Franki Mas MD Referring MD: Regino Venegas MD Medicines: Monitored Anesthesia Care Patient Profile: Refer to note in patient chart for documentation of history and physical. Last Colonoscopy: more than 10 years ago. Complications: No immediate complications. Estimated blood loss: None. Procedure: Pre-Anesthesia Assessment: - Prior to the procedure, a History and Physical was performed, and patient medications and allergies were reviewed. The patient's tolerance of previous anesthesia was also reviewed. The risks and benefits of the procedure and the sedation options and risks were discussed with the patient. All questions were answered, and informed consent was obtained. Prior Anticoagulants: The patient has taken no anticoagulant or antiplatelet agents. ASA Grade Assessment: II - A patient with mild systemic disease. After reviewing the risks and benefits, the patient was deemed in satisfactory condition to undergo the procedure. After I obtained informed consent, the scope was passed under direct vision. Throughout the procedure, the patient's blood pressure, pulse, and oxygen saturations were monitored continuously. The adult colonoscope was introduced through the anus and advanced to the cecum, identified by appendiceal orifice and ileocecal valve. The ileocecal valve, appendiceal orifice, and rectum were photographed. The entire colon was well visualized. The colonoscopy was performed without difficulty. The patient tolerated the procedure well. The quality of the bowel preparation was adequate. Moderate Sedation: See the other procedure note for documentation of moderate sedation with intraservice time. Scope In: 7:56:59 AM Scope Withdrawal Time 0 hours 8 minutes 53 seconds Scope Out: 8:13:49 AM Total Procedure Duration Time 0 hours 16 minutes 50 seconds Findings: The perianal and digital rectal examinations were normal. A single small-mouthed diverticulum was found in the sigmoid colon. The entire examined colon appeared normal on direct and retroflexion views. Impression: - Diverticulosis in the sigmoid colon. - The entire examined colon is normal on direct and retroflexion views. - No specimens collected. Recommendation: - Discharge patient to home (ambulatory). - High fiber diet. - Repeat colonoscopy in 10 years for screening purposes. - Return to my office PRN. - Continue present medications. Procedure Code(s): --- Professional --- 36158, Colonoscopy, flexible; diagnostic, including collection of specimen(s) by brushing or washing, when performed (separate procedure) Diagnosis Code(s): --- Professional --- K57.30, Diverticulosis of large intestine without perforation or abscess without bleeding Z80.0, Family history of malignant neoplasm of digestive organs CPT copyright 2021 [employer] [place] [employer]. All rights reserved. The codes documented in this report are preliminary and upon invoice coder review may be revised to meet current compliance requirements. Franki Mas MD 10/31/2024 8:18:25 AM This report has been signed electronically. Number of Addenda: 0 Note Initiated On: 10/31/2024 7:25 AM
--- NOTE | 2024-10-31 08:21 | PCM.POST.ANE ---
Anesthesia: Postop Eval I Current Vital Signs Temperature: 97.3 F Pulse Rate: 80 Blood Pressure: 108/74 Respiratory Rate: 16 Pulse Ox: 99 Oxygen Delivery Method: Room Air Assessment Airway patent: Yes Spontaneous unlabored respirations: Yes Mental status: Awake and Calm nausea: No Vomiting: No Anesthesia Complication: No Fluid Hydration Crystalloid volume administer (ml): 500 Total IV fluid infused: 500 Progress Note Anesthesia document: Postop Eval 1 completed: Yes
--- NOTE | 2024-10-31 08:45 | PCM.POSTANE2 ---
Anesthesia Postop Eval I Sum Postop Eval Completion status Anesthesia document: Postop Eval 1 completed: Yes Anesthesia Postop Eval I Summary Anesthesia Postop Eval I Summary: Anesthesia Postop Eval I: Assessment Summary Airway patent Yes 10/31/24 08:22 [email or web address] Spontaneous unlabored Yes 10/31/24 08:22 [email or web address] respirations Mental status Awake,Calm 10/31/24 08:22 [email or web address] nausea No 10/31/24 08:22 [email or web address] Vomiting No 10/31/24 08:22 [email or web address] Anesthesia Postop Eval I: Fluid Summary Crystalloid volume administer 500 10/31/24 08:22 [email or web address] (ml) Colloids volume administered ( ml) Blood Product volume administered (ml) Total IV fluid infused 500 10/31/24 08:22 [email or web address] Anesthesia Postop Eval I: Summary Notes Anesthesia Complication No 10/31/24 08:22 [email or web address] Anesthesia Complication Comment: Post-operative progress note Anesthesia: Postop Eval II Evaluation Mental status: Awake Pain Level: 0 nausea: No Vomiting: No
== END 2024-10-31 09:12 | disposition home or self-care (01) ==
LOC: EN 06:31 → AC 06:31
PROVIDERS: Anesthesiology; PCP Family Medicine; Referring Provider Family Medicine; Visit Provider Surgery
PROC: 0DJD8ZZ Inspection of Lower Intestinal Tract, Via Natural or Artificial Opening Endoscopic (ICD-10-PCS; CPT 45378; principal; 2024-10-31 07:25)
DX: K57.30 Diverticulosis of large intestine without perforation or abscess without bleeding (principal); M79.7 Fibromyalgia; K21.9 Gastro-esophageal reflux disease without esophagitis; I10 Essential (primary) hypertension; E78.00 Pure hypercholesterolemia, unspecified; Z79.899 Other long term (current) drug therapy; Z79.01 Long term (current) use of anticoagulants; Z80.0 Family history of malignant neoplasm of digestive organs; Z86.718 Personal history of other venous thrombosis and embolism
CPT/HCPCS: 45378; 36416; 84703; 85610; J2405

== ENCOUNTER → 2024-11-07 | Outpatient (CLI) | payer BC, SELFPAY ==
[2024-11-07 18:18] LABS: Prothrombin Time (Protime)PT. 23.2 SECONDS (11.7-14.9)
== END | disposition home or self-care (01) ==
LOC: MFPLAB 16:01
PROVIDERS: PCP Family Medicine; Referring Provider Family Medicine; Visit Provider Family Medicine
DX: I82.409 Acute embolism and thrombosis of unspecified deep veins of unspecified lower extremity (principal)
CPT/HCPCS: 36415; 85610

== ENCOUNTER → 2024-12-04 | Outpatient (CLI) | payer BC, SELFPAY ==
[2024-12-04 19:43] LABS: International Normalized Ratio 2.8
== END | disposition home or self-care (01) ==
LOC: LABSPEC 15:40
PROVIDERS: PCP Family Medicine; Referring Provider Family Medicine; Visit Provider Family Medicine
DX: I82.409 Acute embolism and thrombosis of unspecified deep veins of unspecified lower extremity (principal)
CPT/HCPCS: 36415; 85610

== ENCOUNTER 2024-12-11 06:28 | Day surgery (SDC) | payer BC, SELFPAY ==
--- NOTE | 2024-12-09 10:44 | EKG12_ITS ---
Test Reason : PREOP Blood Pressure : */* mmHG Vent. Rate : 81 BPM Atrial Rate : 81 BPM P-R Int : 140 ms QRS Dur : 84 ms QT Int : 404 ms P-R-T Axes : 44 -24 25 degrees QTcB Int : 469 ms Normal sinus rhythm Nonspecific ST abnormality Abnormal ECG Poor R wave progression Confirmed by Poli Villaseñor ([id number]), photo editor RAMA SANCHEZ ([id number]) on 12/10/2024 10:14:48 AM Referred By: Mariely Mcdonough Confirmed By: Poli Villaseñor
[2024-12-09 11:46] LABS: Hemoglobin 10.3 g/dL (12.0-15.0); Mean Corp Hgb Conc 30.3 g/dL (32-36); Mean Corpuscular Hgb 22.9 pg (27.0-32.0); Mean Corpuscular Volume 75.6 fL (81-99); Mean Platelet Vol. 9.6 fl (6.2-12.0); Platelet Count 426 K/mm3 (150-450); RBC Distribution Width CV 15.8 % (11.6-14.6)
[2024-12-09 12:30] LABS: Anion Gap 13 (5-15); BUN 13 mg/dL (4-19); BUN/Creat Ratio 14.7 RATIO (10-20); Calcium,Total 9.4 mg/dL (7.6-11.0); Carbon Dioxide 21.7 mmol/L (21.0-32.0); Chloride 106 mmol/L (98-108); Creatinine, Serum 0.87 mg/dL (0.70-1.20); EST Glomerular Filtration Rate 80 (>60); Glucose 107 mg/dL (70-99); Potassium 3.8 mmol/L (3.3-5.1); Sodium Level 141 mmol/L (133-145)
--- NOTE | 2024-12-09 16:20 | PAT.ANE_ITS ---
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 When Was Last Pacemaker Check QUESTION #4 FULL TEXT: You/Your Family Experience fever (hyperthermia) with Anesthesia Last Oral Intake Last Oral intake: Last Oral Intake NPO since Meds taken in AM with sips of water? 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 - mixed signal design engineer: PONV - mixed signal design engineer Female Yes 12/08/24 14:12 HX of Motion Sickness Yes 12/08/24 14:12 HX of N/V After Surgery No 12/08/24 14:12 Non-Smoker Yes 12/08/24 14:12 Duration of Surgery greater No 12/08/24 14:12 than 60 minutes Number of Risk Factors 3 12/08/24 14:12 PONV Score Moderate Risk 12/08/24 14:12 Height & Weight Height & Weight: Anesthesia: Height & Weight Height 5 ft 2 in 10/31/24 07:05 Respiratory Assessment Respiratory Assessment - mixed signal design engineer: Respiratory Tract Infection Hx - mixed signal design engineer Hx Respiratory Tract Infection No 12/08/24 14:12 STOP Sleep Apnea STOP Sleep Apnea - mixed signal design engineer: STOP Sleep Apnea - mixed signal design engineer Hx Hypertension Yes: PER PT, CONTROLLED ON 12/08/24 14:12 MEDS Hx Sleep Apnea No 12/08/24 14:12 CPAP BIPAP Do you snore loudly (louder No 12/08/24 14:12 than talking or can be heard Do you often feel tired/ No 12/08/24 14:12 fatigued/ sleepy during daytime? Has anyone observed you stop No 12/08/24 14:12 breathing during sleep? STOP Results Negative 12/08/24 14:12 QUESTION #5 FULL TEXT : Do you snore loudly (louder than talking or can be heard through closed doors)? 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 Specify any problems Hx of Preganancy in last 3 No 12/08/24 14:12 Months [id number] 12/08/24 14:12 & Questions: Date: 12/08/24 12/08/24 14:12 Time: 14:15 12/08/24 14:12 Patient unable to answer at this time (ie. confused, unrespo /Reproduction History /Reproductive History - mixed signal design engineer: /Reproductive Hx- mixed signal design engineer Hx Now No 12/08/24 14:12 Gestational Age (in weeks): EDC: Hx Hx Para Hx Section SAB No 12/08/24 14:12 [facility] Medical History (Updated 12/08/24 @ 14:24 by Ashlie Price) Wears partial dentures History of IBS Wears dentures Wears glasses Anxiety Depression Alcohol use Interstitial cystitis High cholesterol Back pain Headache Gastric reflux Shortness of breath on exertion Non-smoker History of pain when walking DVT (deep venous thrombosis) Impacted cerumen, right ear Chronic fatigue syndrome Fibromyalgia HTN (hypertension) Home Medications ?Medication ?Instructions ?Recorded ?Last Taken ?Type losartan 50 mg-hydrochlorothiazide 1 tab PO DAILY 01/3010/31/24 05:30 History 12.5 mg tablet gabapentin 300 mg capsule 600 mg PO TID 07/01/2010/30 History omeprazole 20 mg capsule,delayed 20 mg PO DAILY 10/31/24 05:30 History release potassium chloride 10 mEq 10 meq PO QDAY 05/09/2407/26 History tablet,extended release sertraline 25 mg tablet 25 mg PO QDAY 05/09/2410/30 History warfarin 4 mg tablet 4 mg PO QDAY 05/09/24 History d-mannose 500 mg capsule 1,500 mg PO TID 08/28/2407/26 History methenamine 81.6 mg-sod phos 40.8 1 tab PO 4X/DAY PRN BLADDER PAIN 08/28/24 10/30/24 History mg-methylene blue 0.12mg-hyos tablet (Urogesic-Blue) mirabegron 50 mg tablet,extended 50 mg PO QDAY 5 10/30/24 History release 24 hr (Myrbetriq) rosuvastatin 5 mg tablet 5 mg PO QDAY 08/28/24 History solifenacin 10 mg tablet 10 mg PO QHS 08/28/24 History desogestrel-e.estradiol 0.15 1 tab PO DAILY 10/09/24 0 10/30/24 History mg-0.02 mg(21)/e.estrad 0.01 mg(5) tablet (Azurette (28)) Allergy/AdvReac Type Severity Reaction Status Date / Time hydrocodone bitartrate (From Allergy Itching Verified 12/08/24 14:07 Vicodin) oxycodone (From Percocet) Allergy Itching Verified 12/08/24 14:07 sulfamethoxazole (From Allergy Itching Verified 12/08/24 14:07 Bactrim) tramadol Allergy Itching Verified 12/08/24 14:07 trimethoprim (From Bactrim) Allergy Itching Verified 12/08/24 14:07 Family History Mother Colon cancer Hypertension Heart disease CVA (cerebral vascular accident) Father Cancer Prostate Surgical History Hx of colonoscopy Hx of lithotripsy History of cholecystectomy Social History Smoking Status: Never smoker alcohol intake: never substance use type: does not use Audit: Pertinent Findings Pertinent Findings Additional pertinent findings: INR is 2.8. 12/04/2024. Patient is on Coumadin 4 mg tablet per day. Recommendation Anesthesia Recommendation Anesthesia recommendation: OPTIMIZED for anesthesia
[2024-12-11] VITALS (9 sets, daily range): BP systolic 90–128; BP diastolic 54–78; PULSE 72–97; RESP 16; TEMP 36.1–37.1; O2SAT 92–98; BMI 34.0
[2024-12-11 06:34] LABS: INR Fingerstick 1.2; Prothrombin Time Fingerstick 14.2 SEC (11.7-14.9)
[2024-12-11] MEDS: Lactated Ringers 1,000 ML 15 ML IV (07:01)
[2024-12-11 07:03] LABS: Internal QC Validated? YES +Cl - CLEAR BKGD; Pregnancy, Urine Negative Negative
--- NOTE | 2024-12-11 07:56 | PCM.PRE.AN2 ---
ASA Classification* ASA Classification ASA Classification: 2 Assessment & Plan Anesthesia* Anesthesia Assessment Anesthesia Assessment: Discussed sedation and/or anesthesia options, risks, benefits, and alternatives with patient/parents/legal guardian/POA. Questions invited. The patient/parents/legal guardian/POA seems to understand and agrees to proceed with anesthesia plan. Reviewed the physical assessment, medical history, allergy history and patient home medications list prior to surgery/procedure/anesthetic and documented any changes. Performed airway and anesthesia risk assessments. Anesthesia Type Anesthesia Type: MAC Anesthesia Focused Assessment* Temperature: 97.4 F Pulse Rate: 97 Blood Pressure: 128/78 Respiratory Rate: 16 Pulse Ox: 98 Airway Assessment Mouth opens: >3 cm Mallampati Score: II Labs Anesthesia Preop lab: CBC WBC 10.0 K/mm3 (4.4-11.0) 12/09/24 11:12/09/24 RBC 4.50 M/mm3 (4.2-5.4) 12/09/24 11:12/09/24 Hgb 10.3 g/dL (12.0-15.0) L 12/09/24 11:12/09/24 Hct 34.0 % (37-47) L 12/09/24 11:12/09/24 Plt Count 426 K/mm3 (150-450) 12/09/24 11:05 12/09/24 CHEMISTRY Potassium 3.8 mmol/L (3.3-5.1) 12/09/24 11:12/09/24 Sodium 141 mmol/L (133-145) 12/09/24 11:12/09/24 BUN 13 mg/dL (4-19) 12/09/24 11:12/09/24 Creatinine 0.87 mg/dL (0.70-1.20) 12/09/24 11:12/09/24 Glucose 107 mg/dL (70-99) H 12/09/24 11:12/09/24 POC Glucose 102 mg/dL (70-110) 12/26/14 22:19 12/26/14 TSH 1.55 uIU/mL (0.358-3.74) 11/02/22 11:40 11/02/22 COAG PT 30.0 SECONDS (11.7-14.9) H 12/04/24 15:40 12/04/24 Urine Test Negative Negative 12/11/24 06:45 12/11/24 Tst Clinic Negative 02/09/20 16:58 02/09/20 Pre-Assessment Diagnosis/Proposed Procedure Planned Operative Procedure(s): Cysto, possible bladder biopsy with fulguration, possible cysto hydrodistension Anesthesia History Anesthesia History - adoption specialist: Anesthesia History - adoption specialist Hx Hospitalization No 12/08/24 14:12 Any Problems With Anesthesia No 12/08/24 14:12 Cholinesterase deficiency No 12/08/24 14:12 You/Your Family Experience No 12/08/24 14:12 fever (hyperthermia) with Relationship Recent Exposure to Contagious No 12/11/24 06:58 Disease Does patient have nerve No 12/08/24 14:12 stimulator Patient instructed to have device shut off --Does patient have Pacemaker or ICD? When Was Last Pacemaker Check QUESTION #4 FULL TEXT: You/Your Family Experience fever (hyperthermia) with Anesthesia Last Oral Intake Last Oral intake: Last Oral Intake NPO since Meds taken in AM with sips of water? 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 - adoption specialist: PONV - adoption specialist Female Yes 12/08/24 14:12 HX of Motion Sickness Yes 12/08/24 14:12 HX of N/V After Surgery No 12/08/24 14:12 Non-Smoker Yes 12/08/24 14:12 Duration of Surgery greater No 12/08/24 14:12 than 60 minutes Number of Risk Factors 3 12/08/24 14:12 PONV Score Moderate Risk 12/08/24 14:12 Height & Weight Height & Weight: Anesthesia: Height & Weight Height 5 ft 6 in 12/11/24 06:58 Weight: 95.6 kg 12/11/24 06:58 Body Mass Index (BMI) 34.0 12/11/24 06:58 Respiratory Assessment Respiratory Assessment - adoption specialist: Respiratory Tract Infection Hx - adoption specialist Hx Respiratory Tract Infection No 12/08/24 14:12 STOP Sleep Apnea STOP Sleep Apnea - adoption specialist: STOP Sleep Apnea - adoption specialist Hx Hypertension Yes: PER PT, CONTROLLED ON 12/08/24 14:12 MEDS Hx Sleep Apnea No 12/08/24 14:12 CPAP BIPAP Do you snore loudly (louder No 12/08/24 14:12 than talking or can be heard Do you often feel tired/ No 12/08/24 14:12 fatigued/ sleepy during daytime? Has anyone observed you stop No 12/08/24 14:12 breathing during sleep? STOP Results Negative 12/08/24 14:12 QUESTION #5 FULL TEXT : Do you snore loudly (louder than talking or can be heard through closed doors)? 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 Specify any problems Hx of Preganancy in last 3 No 12/08/24 14:12 Months Nurse Filling Out Transfusion [facility] 12/08/24 14:12 & Questions: Date: 12/08/24 12/08/24 14:12 Time: 14:15 12/08/24 14:12 Patient unable to answer at this time (ie. confused, unrespo /Reproduction History /Reproductive History - adoption specialist: /Reproductive Hx- adoption specialist Hx Now No 12/08/24 14:12 Gestational Age (in weeks): EDC: Hx Hx Para Hx Section SAB No 12/08/24 14:12 Active Medications Active Medications: Current Medications Generic Name Dose Route Start Last Admin Trade Name Freq PRN Reason Stop Dose Admin Cefazolin Sodium 2 gm/ Sodium 110 mls @ 150 mls/hr 12/11/24 08:00 Chloride IV 12/11/24 08:43 INTRAOP ONE Lactated Ringer's 1,000 mls @ 15 mls/hr 12/11/24 06:30 12/11/24 07:01 IV 15 mls/hr .Q48H SHIKHA Administration PFSH Medical History Wears partial dentures History of IBS Wears dentures Wears glasses Anxiety Depression Alcohol use Interstitial cystitis High cholesterol Back pain Headache Gastric reflux Shortness of breath on exertion Non-smoker History of pain when walking DVT (deep venous thrombosis) Impacted cerumen, right ear Chronic fatigue syndrome Fibromyalgia HTN (hypertension) Home Medications ?Medication ?Instructions ?Recorded ?Last Taken ?Type losartan 50 mg-hydrochlorothiazide 1 tab PO DAILY 02/09/20 12/10/24 History 12.5 mg tablet gabapentin 300 mg capsule 600 mg PO TID 07/01/20 12/10/24 History omeprazole 20 mg capsule,delayed 20 mg PO DAILY 07/01/20 12/11/24 History release potassium chloride 10 mEq 10 meq PO QDAY 05/09/24 12/10/24 History tablet,extended release sertraline 25 mg tablet 25 mg PO QDAY 05/09/24 12/10/24 History warfarin 4 mg tablet 4 mg PO QDAY 05/09/24 12/06/24 History d-mannose 500 mg capsule 1,500 mg PO TID 08/28/24 12/10/24 History methenamine 81.6 mg-sod phos 40.8 1 tab PO 4X/DAY PRN BLADDER PAIN 08/28/24 12/10/24 History mg-methylene blue 0.12mg-hyos tablet (Urogesic-Blue) mirabegron 50 mg tablet,extended 50 mg PO QDAY 08/28/24 12/10/24 History release 24 hr (Myrbetriq) rosuvastatin 5 mg tablet 5 mg PO QDAY 08/28/24 12/10/24 History solifenacin 10 mg tablet 10 mg PO QHS 08/28/24 12/10/24 History desogestrel-e.estradiol 0.15 1 tab PO DAILY 10/09/24 12/10/24 History mg-0.02 mg(21)/e.estrad 0.01 mg(5) tablet (Azurette (28)) Allergy/AdvReac Type Severity Reaction Status Date / Time hydrocodone bitartrate (From Allergy Itching Verified 12/11/24 06:56 Vicodin) oxycodone (From Percocet) Allergy Itching Verified 12/11/24 06:56 sulfamethoxazole (From Allergy Itching Verified 12/11/24 06:56 Bactrim) tramadol Allergy Itching Verified 12/11/24 06:56 trimethoprim (From Bactrim) Allergy Itching Verified 12/11/24 06:56 Family History Mother Colon cancer Hypertension Heart disease CVA (cerebral vascular accident) Father Cancer Prostate Surgical History Hx of colonoscopy Hx of lithotripsy History of cholecystectomy Social History Smoking Status: Never smoker alcohol intake: never substance use type: does not use Review of Systems (Anesthesia) ROS Narrative System reviewed and no additional complaints, except as documented.
[2024-12-11] MEDS: Cefazolin 2 GM in 0.9% Normal Saline (100mL Bag) 100 ML IV (08:00)
--- NOTE | 2024-12-11 08:03 | OP.PCM_ITS ---
Operative Report (Standard) Operative Information Date of Procedure: 12/11/24 Pre-Operative Diagnosis: Chronic bladder pain Post-Operative Diagnosis: Same Surgery/Procedure Performed: Cystoscopy, hydrodistention digital learning platforms manager: No Type of Anesthesia: MAC RN Documented Start/Stop Times: Operation Date: 12/11/24 08:00 Case Time Into Pre-Op 12/11/24 06:29 Out of Pre-Op 12/11/24 07:56 Anesthesia Start 12/11/24 08:00 Into Room 12/11/24 08:00 Procedure Start 12/11/24 08:14 Procedure End 12/11/24 08:22 Anesthesia End 12/11/24 08:27 Out of Room 12/11/24 08:27 Into Recovery 12/11/24 08:28 Procedure Start Time: 08:14 Procedure Stop Time: 08:22 Select all DRAINS/GRAFTS/IMPLANTS that apply: None Estimated Blood Loss: <5cc Specimen collected: No Description of surgery: The patient is a 53-year-old female with uncontrolled chronic bladder pain who presents for evaluation and management under anesthesia. Informed consent was obtained. She was taken to the operating room and placed on the operating room table. Anesthesia monitored the head, neck, airway, IV access and vital signs throughout the case. Once anesthesia was appropriately ministered, she was placed into dorsolithotomy position was prepped and draped in usual sterile fashion. The cystoscope was inserted through the urethra under direct visualization into the urinary bladder. The bladder mucosa was visualized in its entirety finding no evidence of mass, erythema, ulceration or foreign body. The bladder was then filled to capacity and then to sit for 2 minutes. The bladder capacity was measured at 650 cc. This process was then repeated and the bladder mucosa revealed glomerulations and increased injection on reentry with the cystoscope. On the second distention her capacity increased to 800 cc. The patient's bladder was emptied and 1 final time, the cystoscope was removed. A lighted jet was then injected into her bladder and the patient was awakened and taken to the recovery room in good condition. There were no complications during this procedure. Surgical Findings: Glomerulations and injections with normal bladder capacity. No ulcerations identified Complications Complications: No Admit VTE Documentation VTE Present on Admission: Yes VTE Mechan Device Prophylaxis: SCD's VTE Pharm Prophylaxis ordered?: Yes
--- NOTE | 2024-12-11 08:05 | DCINST_ITS ---
Discharge Instructions Diet Discharge Diet: No restrictions Activity Discharge Activity: Return to Normal Activity Dressing / Incision Call your doctor if you observe: Fever of 101 or Higher, Inability to urinate and Inability to have a bowel movement Follow Up Care Please Follow Up With: Mariely Mcdonough MD When: Call the office for an appointment. Test Results: Test results from this visit will be discussed in further detail at your follow- up appointment, if applicable. Discharge Plan Admission Attending Provider: Mariely Mcdonough Primary Care Provider: Regino Venegas Instructions Print Language: Surinamese Discharge Orders/Prescriptions Prescriptions: New acetaminophen-codeine [acetaminophen-codeine] 300-30 mg tablet 1 - 2 tab PO Q6H PRN PRN (Reason: Pain Score 6-10/10) 3 Days Qty: 20 0RF Continued losartan-hydrochlorothiazide 50-12.5 mg tablet 1 tab PO DAILY warfarin 4 mg tablet 4 mg PO QDAY Patient Comments: LAST DOSE 12/06/24 FOR SURGERY ON 12/11/24 sertraline 25 mg tablet 25 mg PO QDAY potassium chloride 10 mEq tablet extended release 10 meq PO QDAY methen-sod phos-meth blue-hyos [Urogesic-Blue] 81.6-40.8-0.12 mg tablet 1 tab PO 4X/DAY PRN Rx Instructions: administer with plenty of fluids d-mannose 500 mg capsule 1,500 mg PO TID solifenacin 10 mg tablet 10 mg PO QHS rosuvastatin 5 mg tablet 5 mg PO QDAY mirabegron [Myrbetriq] 50 mg tablet extended release 24 hr 50 mg PO QDAY gabapentin 300 MG capsule 600 mg PO TID omeprazole 20 MG capsule,delayed release(DR/EC) 20 mg PO DAILY desog-e.estradiol/e.estradiol [Azurette (28)] 0.15-0.02 mgx21 /0.01 mg x 5 tablet 1 tab PO DAILY Other Ambulatory Orders: 12 Lead EKG (Routine) Timeframe: 20241209 Location: None Selected Ordered By: Dr. Durga Mena Referrals / Follow Up: Regino Venegas MD [Primary Care Provider] - Disposition Disposition (needs filled in before D/C Order can be placed): Home, Self Care
[2024-12-11] MEDS: Lidocaine Jelly 2% 20 ML Syringe (URO-JET) 1 APPLIC (08:22)
--- NOTE | 2024-12-11 08:32 | PCM.POST.ANE ---
Anesthesia: Postop Eval I Current Vital Signs Temperature: 97 F Pulse Rate: 72 Blood Pressure: 117/72 Respiratory Rate: 16 Pulse Ox: 92 Oxygen Delivery Method: Room Air Assessment Airway patent: Yes Spontaneous unlabored respirations: Yes Mental status: Awake and Calm nausea: No Vomiting: No Anesthesia Complication: No Fluid Hydration Crystalloid volume administer (ml): 500 Total IV fluid infused: 500 Progress Note Anesthesia document: Postop Eval 1 completed: Yes
--- NOTE | 2024-12-11 08:54 | POSTOPAN2_ITS ---
Anesthesia Postop Eval I Sum Postop Eval Completion status Anesthesia document: Postop Eval 1 completed: Yes Anesthesia Postop Eval I Summary Anesthesia Postop Eval I Summary: Anesthesia Postop Eval I: Assessment Summary Airway patent Yes 12/11/24 08:33 DRUG WORKER.MDOT Spontaneous unlabored Yes 12/11/24 08:33 DRUG WORKER.MDOT respirations Mental status Awake,Calm 12/11/24 08:33 DRUG WORKER.MDOT nausea No 12/11/24 08:33 DRUG WORKER.MDOT Vomiting No 12/11/24 08:33 DRUG WORKER.MDOT Anesthesia Postop Eval I: Fluid Summary Crystalloid volume administer 500 12/11/24 08:33 DRUG WORKER.MDOT (ml) Colloids volume administered ( ml) Blood Product volume administered (ml) Total IV fluid infused 500 12/11/24 08:33 DRUG WORKER.MDOT Anesthesia Postop Eval I: Summary Notes Anesthesia Complication No 12/11/24 08:33 DRUG WORKER.MDOT Anesthesia Complication Comment: Post-operative progress note Anesthesia: Postop Eval II Evaluation Mental status: Awake and Calm Pain Level: 0 nausea: No Vomiting: No Complications Anesthesia Complication: No
--- NOTE | 2024-12-11 08:54 | PCM.POSTANE2 ---
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 Spontaneous unlabored Yes 12/11/24 08:33 WATER PUMP INSTALLER.MDOT respirations Mental status Awake,Calm 12/11/24 08:33 WATER PUMP INSTALLER.MDOT nausea No 12/11/24 08:33 WATER PUMP INSTALLER.MDOT Vomiting No 12/11/24 08:33 WATER PUMP INSTALLER.MDOT Anesthesia Postop Eval I: Fluid Summary Crystalloid volume administer 500 12/11/24 08:33 WATER PUMP INSTALLER.MDOT (ml) Colloids volume administered ( ml) Blood Product volume administered (ml) Total IV fluid infused 500 12/11/24 08:33 WATER PUMP INSTALLER.MDOT Anesthesia Postop Eval I: Summary Notes Anesthesia Complication No 12/11/24 08:33 WATER PUMP INSTALLER.MDOT Anesthesia Complication Comment: Post-operative progress note Anesthesia: Postop Eval II Evaluation Mental status: Awake and Calm Pain Level: 0 nausea: No Vomiting: No Complications Anesthesia Complication: No
== END 2024-12-11 09:31 | disposition home or self-care (01) ==
LOC: SDC 06:28 → AC 06:29
PROVIDERS: PCP Family Medicine; Referring Provider Urology; Visit Provider Urology
PROC: 0TBB8ZX Excision of Bladder, Via Natural or Artificial Opening Endoscopic, Diagnostic (ICD-10-PCS; CPT 52260; principal; 2024-12-11 07:50)
DX: N30.10 Interstitial cystitis (chronic) without hematuria (principal); I10 Essential (primary) hypertension; Z79.899 Other long term (current) drug therapy; Z79.01 Long term (current) use of anticoagulants; R39.15 Urgency of urination; R35.1 Nocturia; R10.2 Pelvic and perineal pain; E78.00 Pure hypercholesterolemia, unspecified; K21.9 Gastro-esophageal reflux disease without esophagitis; Z86.718 Personal history of other venous thrombosis and embolism
CPT/HCPCS: 52260; 00910; 36415; 36416; 80048; 81025; 85027; 85610; 93005; J2405

== ENCOUNTER → 2025-01-01 | Outpatient (CLI) | payer BC, SELFPAY ==
[2025-01-01 18:56] LABS: Hematocrit 34.5 % (37-47); Hemoglobin 10.5 g/dL (12.0-15.0); Immature Granulocytes Count 0.020 X10^3/uL (0.0-0.0); Mean Corp Hgb Conc 30.4 g/dL (32-36); Mean Corpuscular Volume 75.8 fL (81-99); Mean Platelet Vol. 9.8 fl (6.2-12.0); NRBC Flagged by Analyzer 0 % (0-5); Platelet Count 392 K/mm3 (150-450); RBC Distribution Width CV 16.1 % (11.6-14.6); RBC Distribution Width SD 44.2 fl (35.1-43.9); Red Blood Count 4.55 M/mm3 (4.2-5.4); White Blood Count 10.5 K/mm3 (4.4-11.0)
[2025-01-01 21:37] LABS: Color, Urine SEE COMMENT BELOW (Yellow); Glucose, Dipstick Normal (Normal); Ketone-Dipstick Negative (Negative); Leukocyte Esterase-Dipstick 100 /ul (Negative); Nitrite-Dipstick Negative (Negative); Occult Blood-Urine 250 /ul (Negative); Protein-Dipstick 15 mg/dl (Negative); Specific Gravity, Urine 1.010 (1.002-1.030); Urine Bilirubin Dipstick Negative (Negative)
== END | disposition home or self-care (01) ==
LOC: MTLAB 16:41
PROVIDERS: PCP Family Medicine; Referring Provider Family Medicine; Visit Provider Family Medicine
DX: R39.89 Other symptoms and signs involving the genitourinary system (principal)
CPT/HCPCS: 36415; 81002; 85025

== ENCOUNTER → 2025-01-12 | Outpatient (CLI) | payer BC, SELFPAY | END | disposition home or self-care (01) | LOC: LABSPEC 15:39 | PROVIDERS: PCP Family Medicine; Visit Provider Family Medicine | DX: R39.89 Other symptoms and signs involving the genitourinary system (principal) | CPT/HCPCS: 87086 ==

== ENCOUNTER → 2025-01-22 | Outpatient (CLI) | payer BC, SELFPAY ==
[2025-01-27 07:08] LABS: Immunoglobulin A 355 mg/dL (87-352)
[2025-01-28 11:08] LABS: Egg, Whole <0.10 kU/L (Class 0); Mussels <0.10 kU/L (Class 0)
== END | disposition home or self-care (01) ==
LOC: LAB 14:10
PROVIDERS: PCP Family Medicine; Referring Provider Student in an Organized Health Care Education/Training Program; Visit Provider Student in an Organized Health Care Education/Training Program
DX: R19.7 Diarrhea, unspecified (principal)
CPT/HCPCS: 36415; 82784; 83516; 86003; 86005; 86255

== ENCOUNTER → 2025-01-30 | Outpatient (CLI) | payer BC, SELFPAY ==
[2025-02-02 14:08] LABS: Pancreatic Elastase, Fecal 728 (>200)
[2025-02-03 08:08] LABS: Calprotectin, Stool 118 ug/g (0-120)
== END | disposition home or self-care (01) ==
PROVIDERS: PCP Family Medicine; Referring Provider Student in an Organized Health Care Education/Training Program; Visit Provider Student in an Organized Health Care Education/Training Program
DX: K58.9 Irritable bowel syndrome, unspecified (principal); R19.7 Diarrhea, unspecified
CPT/HCPCS: 82653; 83630; 83993; 87177; 87209; 87329; 87493; 87506

== ENCOUNTER → 2025-03-31 | Outpatient (CLI) | payer BC, SELFPAY ==
[2025-04-03 00:07] LABS: Calprotectin, Stool 189 ug/g (0-120)
== END | disposition home or self-care (01) ==
LOC: LABSPEC 16:49
PROVIDERS: PCP Family Medicine; Referring Provider Student in an Organized Health Care Education/Training Program; Visit Provider Student in an Organized Health Care Education/Training Program
DX: R19.7 Diarrhea, unspecified (principal)
CPT/HCPCS: 83993

== ENCOUNTER 2025-05-08 09:05 | Day surgery (SDC) | payer BC, SELFPAY ==
--- NOTE | 2025-05-07 13:46 | PAT.ANESEVAL ---
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 When Was Last Pacemaker Check QUESTION #4 FULL TEXT: You/Your Family Experience fever (hyperthermia) with Anesthesia Last Oral Intake Last Oral intake: Last Oral Intake NPO since Meds taken in AM with sips of water? 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 helper Female Yes 05/07/25 13:36 HX of Motion Sickness Yes 05/07/25 13:36 HX of N/V After Surgery No 05/07/25 13:36 Non-Smoker Yes 05/07/25 13:36 Duration of Surgery greater No 05/07/25 13:36 than 60 minutes Number of Risk Factors 3 05/07/25 13:36 PONV Score Moderate Risk 05/07/25 13:36 Height & Weight Height & Weight: Anesthesia: Height & Weight Height 5 ft 6 in 04/08/25 09:34 Respiratory Assessment Respiratory Assessment - tablet making machine operator helper: Respiratory Tract Infection Hx - tablet making machine operator helper Hx Respiratory Tract Infection No 05/07/25 13:36 STOP Sleep Apnea STOP Sleep Apnea - tablet making machine operator helper: STOP Sleep Apnea - tablet making machine operator helper Hx Hypertension Yes: PER PT, CONTROLLED ON 05/07/25 13:36 MEDS Hx Sleep Apnea No 05/07/25 13:36 CPAP BIPAP Do you snore loudly (louder Yes 05/07/25 13:36 than talking or can be heard Do you often feel tired/ Yes 05/07/25 13:36 fatigued/ sleepy during daytime? Has anyone observed you stop No 05/07/25 13:36 breathing during sleep? STOP Results Positive 05/07/25 13:36 QUESTION #5 FULL TEXT : Do you snore loudly (louder than talking or can be heard through closed doors)? 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 Specify any problems Hx of Preganancy in last 3 No 05/07/25 13:36 Months Nurse Filling Out Transfusion DSCHRIBER 05/07/25 13:36 & Questions: Date: 05/07/25 05/07/25 13:36 Time: 13:37 05/07/25 13:36 Patient unable to answer at this time (ie. confused, unrespo /Reproduction History /Reproductive History - tablet making machine operator helper: /Reproductive Hx- tablet making machine operator helper Hx Now No 05/07/25 13:36 Gestational Age (in weeks): EDC: Hx Hx Para Hx Section SAB No 05/07/25 13:36 Does the father of the baby or his family experience fever w Father of the baby Malignant Hypertension history comment PENDING SALE TO [facility] Medical History (Updated 05/07/25 @ 13:41 by Fawn Li) Bladder disease Restless legs Wears partial dentures History of IBS Wears dentures Wears glasses Anxiety Depression Alcohol use Interstitial cystitis High cholesterol Headache Gastric reflux Shortness of breath on exertion Non-smoker History of pain when walking DVT (deep venous thrombosis) Chronic fatigue syndrome Fibromyalgia HTN (hypertension) Home Medications Medication Instructions Recorded Last Taken Type losartan 50 mg-hydrochlorothiazide 1 tab PO DAILY 02/09/20 12/10/24 History 12.5 mg tablet gabapentin 300 mg capsule 600 mg PO TID 07/01/20 12/10/24 History omeprazole 20 mg capsule,delayed 20 mg PO DAILY 07/01/20 12/11/24 History release potassium chloride 10 mEq 10 meq PO QDAY 05/09/24 12/10/24 History tablet,extended release warfarin 4 mg tablet 4 mg PO QDAY 05/09/24 05/03/25 History d-mannose 500 mg capsule 1,500 mg PO DAILY 08/28/24 12/10/24 History methenamine 81.6 mg-sod phos 40.8 1 tab PO 4X/DAY PRN BLADDER PAIN 08/28/24 12/10/24 History mg-methylene blue 0.12mg-hyos tablet (Urogesic-Blue) mirabegron 50 mg tablet,extended 100 mg PO QDAY 08/28/24 12/10/24 History release 24 hr (Myrbetriq) rosuvastatin 5 mg tablet 5 mg PO QDAY 08/28/24 12/10/24 History solifenacin 10 mg tablet 10 mg PO QHS 08/28/24 12/10/24 History desogestrel-e.estradiol 0.15 1 tab PO DAILY 10/09/24 12/10/24 History mg-0.02 mg(21)/e.estrad 0.01 mg(5) tablet (Azurette (28)) dicyclomine 20 mg tablet 20 mg PO 4X/DAY 02/24/25 Unknown History eluxadoline 100 mg tablet (Viberzi) 100 mg PO BID 02/24/25 Unknown History sertraline 50 mg tablet 50 mg PO QDAY 02/24/25 Unknown History colestipol 1 gram tablet 1 g PO QDAY 05/07/25 Unknown History Allergy/AdvReac Type Severity Reaction Status Date / Time hydrocodone bitartrate (From Allergy Itching Verified 05/07/25 13:31 Vicodin) oxycodone (From Percocet) Allergy Itching Verified 05/07/25 13:31 sulfamethoxazole (From Allergy Itching Verified 05/07/25 13:31 Bactrim) tramadol Allergy Itching Verified 05/07/25 13:31 trimethoprim (From Bactrim) Allergy Itching Verified 05/07/25 13:31 Family History Mother Colon cancer Hypertension Heart disease CVA (cerebral vascular accident) Father Cancer Prostate Surgical History (Updated 05/07/25 @ 13:41 by Fawn Li) History of cystoscopy Hx of colonoscopy Hx of lithotripsy History of cholecystectomy Social History adopted: No household members: spouse housing: house Smoking Status: Never smoker alcohol intake: never substance use type: does not use seatbelt use: always do you feel safe at home: Yes Audit: Pertinent Findings Pertinent Findings EKG Perinent findings: 11/2024: NSR with nonspecific ST abnormality, poor R wave progression Recommendation Anesthesia Recommendation Anesthesia recommendation: OPTIMIZED for anesthesia
[2025-05-08] VITALS (7 sets, daily range): BP systolic 107–131; BP diastolic 61–79; PULSE 76–110; RESP 16; TEMP 36.1–36.4; O2SAT 97–99; BMI 33.5
[2025-05-08 09:17] LABS: INR Fingerstick 1.3
[2025-05-08] MEDS: Lactated Ringers 1,000 ML 15 ML IV (09:37)
[2025-05-08 09:58] LABS: Internal QC Validated? YES +Cl - CLEAR BKGD; Pregnancy, Serum, hCG Quali. NEGATIVE Negative; Record Kit Lot#, Serum Preg. 0000980607
--- NOTE | 2025-05-08 10:00 | COLBX_PTH ---
PATIENT: KODAK TRINIDAD LOC: EN U#:[id number] AGE/SX: 54/F ROOM: RE05/08/[address]: Dr. Mario Dallas DO : 1970 BED: DIS: 05/08/2025 SPEC #: [id number] RECD: 05/08/25 13:44 STATUS: KING RERobin #: [id number] JAMAAL: 05/08/25 10:[address]: Mario Dallas DEPT: SURGICAL PATHOLOGY RECD BY: Martin Salazar ENTERED: 05/08/25 14:45 SP TYPE: COLON BX JEWEL DR: Dr. Regino Venegas MD Tissues: A - Ileum, NOS B - COLON BIOPSY Procedures: Surgery Specimen Level IV HEADER OPERATION: Colonoscopy with biopsy PRE-OP DIAGNOSIS: Diarrhea TISSUE SUBMITTED: A- Terminal ileum biopsy, B- Random colon biopsy MICROSCOPIC DIAGNOSIS A. Terminal ileum, biopsy: - No specific pathologic change. B. Colon, random, biopsy: - Tubular adenoma, focal. - The histologic features of microscopic colitis are not demonstrated. MICROSCOPIC DESCRIPTION Slides are reviewed. GROSS DESCRIPTION A. Received in fixative is one container labeled with the patient's name and designated "Terminal ileum biopsy." The specimen consists of one irregular fragment of nava tissue that measures 0.6 cm. The specimen is totally submitted in one cassette. B. Received in fixative is one container labeled with the patient's name and designated "Random colon biopsy." The specimen consists of multiple irregular fragments of nava tissue that in aggregate measure 1.3 x 0.9 x 0.1 cm. The specimen is totally submitted in one cassette. HI 05/08/2025 CPT:10597y2
--- NOTE | 2025-05-08 10:35 | PCM.PRE.AN2 ---
ASA Classification* ASA Classification ASA Classification: 2 Assessment & Plan Anesthesia* Anesthesia Assessment Anesthesia Assessment: Discussed sedation and/or anesthesia options, risks, benefits, and alternatives with patient/parents/legal guardian/POA. Questions invited. The patient/parents/legal guardian/POA seems to understand and agrees to proceed with anesthesia plan. Reviewed the physical assessment, medical history, allergy history and patient home medications list prior to surgery/procedure/anesthetic and documented any changes. Performed airway and anesthesia risk assessments. Anesthesia Type Anesthesia Type: MAC History Source History Obtained from:: Patient and Chart Anesthesia Focused Assessment* Temperature: 96.9 F Pulse Rate: 110 Blood Pressure: 131/79 Respiratory Rate: 16 Pulse Ox: 98 Oxygen Delivery Method: Room Air Airway Assessment Mouth opens: >3 cm Mallampati Score: II Teeth Condition: Dentures (Patient has full upper dentures. They will stay in.) and Partial (Patient has lower partials. They will stay in.) Neck Range of motion (ROM): Full ROM Labs Anesthesia Preop lab: CBC WBC, (4.4-11.0) 10.5 K/mm3 01/01/25, 16:46 RBC, (4.2-5.4) 4.55 M/mm3 01/01/25, 16:46 Hgb, (12.0-15.0) 10.5 g/dL L 01/01/25, 16:46 Hct, (37-47) 34.5 % L 01/01/25, 16:46 Plt Count, (150-450) 392 K/mm3 01/01/25, 16:46 CHEMISTRY Potassium, (3.3-5.1) 3.8 mmol/L 12/09/24, 11:05 Sodium, (133-145) 141 mmol/L 12/09/24, 11:05 BUN, (4-19) 13 mg/dL 12/09/24, 11:05 Creatinine, (0.70-1.20) 0.87 mg/dL 12/09/24, 11:05 Glucose, (70-99) 107 mg/dL H 12/09/24, 11:05 POC Glucose, (70-110) 102 mg/dL 12/26/14, 22:19 TSH, (0.358-3.74) 1.55 uIU/mL 11/02/22, 11:40 COAG PT, (11.7-14.9) 30.0 SECONDS H 12/04/24, 15:40 Urine Test Negative Negative 12/11/24, 06:45 Tst Clinic Negative 03/04/25, 11:10 Pre-Assessment Diagnosis/Proposed Procedure Planned Operative Procedure(s): CSCOPE Anesthesia History Anesthesia 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 When Was Last Pacemaker Check QUESTION #4 FULL TEXT: You/Your Family Experience fever (hyperthermia) with Anesthesia Last Oral Intake Last Oral intake: Last Oral Intake NPO since 07:00 05/08/25 09:35 Meds taken in AM with sips of water? Meds patient instructed to take am of surgery Any additional information?: Yes NPO since: 06:50 (Last of the prep was at 6:50 AM.) Meds taken in AM with sips of water?: Yes PONV PONV - middle card tender: PONV - middle card tender Female Yes 05/07/25 13:36 HX of Motion Sickness Yes 05/07/25 13:36 HX of N/V After Surgery No 05/07/25 13:36 Non-Smoker Yes 05/07/25 13:36 Duration of Surgery greater No 05/07/25 13:36 than 60 minutes Number of Risk Factors 3 05/07/25 13:36 PONV Score Moderate Risk 05/07/25 13:36 Height & Weight Height & Weight: Anesthesia: Height & Weight Height 5 ft 6 in 05/08/25 09:35 Weight: 94.3 kg 05/08/25 09:35 Body Mass Index (BMI) 33.5 05/08/25 09:35 Respiratory Assessment Respiratory Assessment - middle card tender: Respiratory Tract Infection Hx - middle card tender Hx Respiratory Tract Infection No 05/07/25 13:36 STOP Sleep Apnea STOP Sleep Apnea - middle card tender: STOP Sleep Apnea - middle card tender Hx Hypertension Yes: PER PT, CONTROLLED ON 05/07/25 13:36 MEDS Hx Sleep Apnea No 05/07/25 13:36 CPAP BIPAP Do you snore loudly (louder Yes 05/07/25 13:36 than talking or can be heard Do you often feel tired/ Yes 05/07/25 13:36 fatigued/ sleepy during daytime? Has anyone observed you stop No 05/07/25 13:36 breathing during sleep? STOP Results Positive 05/07/25 13:36 QUESTION #5 FULL TEXT : Do you snore loudly (louder than talking or can be heard through closed doors)? 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 Specify any problems Hx of Preganancy in last 3 No 05/07/25 13:36 Months Nurse Filling Out Transfusion DSCHRIBER 05/07/25 13:36 & Questions: Date: 05/07/25 05/07/25 13:36 Time: 13:37 05/07/25 13:36 Patient unable to answer at this time (ie. confused, unrespo /Reproduction History /Reproductive History - middle card tender: /Reproductive Hx- middle card tender Hx Now No 05/07/25 13:36 Gestational Age (in weeks): EDC: Hx Hx Para Hx Section SAB No 05/07/25 13:36 Does the father of the baby or his family experience fever w Father of the baby Malignant Hypertension history comment Active Medications Active Medications: Current Medications Generic Name Dose Route Start Last Admin Trade Name Freq PRN Reason Stop Dose Admin Lactated Ringer's 1,000 mls @ 15 mls/hr 05/08/25 09:30 05/08/25 09:37 IV 15 mls/hr .Q48H SHIKHA Administration PFSH Medical History Bladder disease Restless legs Wears partial dentures History of IBS Wears dentures Wears glasses Anxiety Depression Alcohol use Interstitial cystitis High cholesterol Headache Gastric reflux Shortness of breath on exertion Non-smoker History of pain when walking DVT (deep venous thrombosis) Chronic fatigue syndrome Fibromyalgia HTN (hypertension) Home Medications Medication Instructions Recorded Last Taken Type losartan 50 mg-hydrochlorothiazide 1 tab PO DAILY 02/09/20 12/10/24 History 12.5 mg tablet gabapentin 300 mg capsule 600 mg PO TID 07/01/20 12/10/24 History omeprazole 20 mg capsule,delayed 20 mg PO DAILY 07/01/20 05/08/25 History release potassium chloride 10 mEq 10 meq PO QDAY 05/09/24 12/10/24 History tablet,extended release warfarin 4 mg tablet 4 mg PO QDAY 05/09/24 05/03/25 History d-mannose 500 mg capsule 1,500 mg PO DAILY 08/28/24 12/10/24 History methenamine 81.6 mg-sod phos 40.8 1 tab PO 4X/DAY PRN BLADDER PAIN 08/28/24 12/10/24 History mg-methylene blue 0.12mg-hyos tablet (Urogesic-Blue) mirabegron 50 mg tablet,extended 100 mg PO QDAY 08/28/24 12/10/24 History release 24 hr (Myrbetriq) rosuvastatin 5 mg tablet 5 mg PO QDAY 08/28/24 12/10/24 History solifenacin 10 mg tablet 10 mg PO QHS 08/28/24 12/10/24 History desogestrel-e.estradiol 0.15 1 tab PO DAILY 10/09/24 12/10/24 History mg-0.02 mg(21)/e.estrad 0.01 mg(5) tablet (Azurette (28)) dicyclomine 20 mg tablet 20 mg PO 4X/DAY 02/24/25 05/08/25 History eluxadoline 100 mg tablet (Viberzi) 100 mg PO BID 02/24/25 Unknown History sertraline 50 mg tablet 50 mg PO QDAY 02/24/25 Unknown History colestipol 1 gram tablet 1 g PO QDAY 05/07/25 Unknown History Allergy/AdvReac Type Severity Reaction Status Date / Time hydrocodone bitartrate (From Allergy Itching Verified 05/08/25 09:33 Vicodin) oxycodone (From Percocet) Allergy Itching Verified 05/08/25 09:33 sulfamethoxazole (From Allergy Itching Verified 05/08/25 09:33 Bactrim) tramadol Allergy Itching Verified 05/08/25 09:33 trimethoprim (From Bactrim) Allergy Itching Verified 05/08/25 09:33 Family History Mother Colon cancer Hypertension Heart disease CVA (cerebral vascular accident) Father Cancer Prostate Surgical History History of cystoscopy Hx of colonoscopy Hx of lithotripsy History of cholecystectomy Social History adopted: No household members: spouse housing: house Smoking Status: Never smoker alcohol intake: never substance use type: does not use seatbelt use: always do you feel safe at home: Yes Review of Systems (Anesthesia) ROS Narrative System reviewed and no additional complaints, except as documented.
--- NOTE | 2025-05-08 11:13 | PCM.HP.STD ---
HPI - General General Date of Admission: 05/08/25 Date of Service: 05/08/25 Chief Complaint: Diarrhea HPI Narrative SUNI TRINIDAD, is a 54 F who presents [ Chief Complaint: Loose stool BGI EST 01.22.25 BGI. pt presenting for evaluation of loose stools since August 2024. She has had some diarrhea in the past but no to this extent. Pt is having 2-6 loose bm per day with extreme urgency. She was abd cramping and nausea after bm. She has tried fasting but continues to have loose stools. will take Imodium up to four times per day which will give her relief for about a half a day. She underwent colonoscopy with Dr. Mas in October 2024 which was normal. She has a family hx of colon cancer in her mother. Biopsies of the colon were not taken. Will order stool testing for inflammation, infection or EPI. Food allergy and celiac testing ordered. In the mean time, I have prescribed colestipol 2 grams daily and she may continue Imodium PRN. Ordered Stool testing, Celiac and food allergy testing. OV 02.24.25 patient's diarrhea has slowed with colestipol. She is having loose stool every other day. Patient notes that at her last appointment she forgot to mention her PCP prescribed Viberzi and dicyclomine. Viberzi did not work for her loose stool. Calprotectin 04/03/2025: 189 high OV 04/07/2025 patient taking colestipol 1 g daily. She continues to have loose stool 2-3 times per week. Sometimes she has constipation with a bowel movement every other day but typically has a soft bowel movement daily. She has occasional diffuse abdominal pain and nausea but no vomiting. [facility] Medical History Bladder disease Restless legs Wears partial dentures History of IBS Wears dentures Wears glasses Anxiety Depression Alcohol use Interstitial cystitis High cholesterol Headache Gastric reflux Shortness of breath on exertion Non-smoker History of pain when walking DVT (deep venous thrombosis) Chronic fatigue syndrome Fibromyalgia HTN (hypertension) Home Medications Medication Instructions Recorded Last Taken Type losartan 50 mg-hydrochlorothiazide 1 tab PO DAILY 02/09/20 12/10/24 History 12.5 mg tablet gabapentin 300 mg capsule 600 mg PO TID 07/01/20 12/10/24 History omeprazole 20 mg capsule,delayed 20 mg PO DAILY 07/01/20 05/08/25 History release potassium chloride 10 mEq 10 meq PO QDAY 05/09/24 12/10/24 History tablet,extended release warfarin 4 mg tablet 4 mg PO QDAY 05/09/24 05/03/25 History d-mannose 500 mg capsule 1,500 mg PO DAILY 08/28/24 12/10/24 History methenamine 81.6 mg-sod phos 40.8 1 tab PO 4X/DAY PRN BLADDER PAIN 08/28/24 12/10/24 History mg-methylene blue 0.12mg-hyos tablet (Urogesic-Blue) mirabegron 50 mg tablet,extended 100 mg PO QDAY 08/28/24 12/10/24 History release 24 hr (Myrbetriq) rosuvastatin 5 mg tablet 5 mg PO QDAY 08/28/24 12/10/24 History solifenacin 10 mg tablet 10 mg PO QHS 08/28/24 12/10/24 History desogestrel-e.estradiol 0.15 1 tab PO DAILY 10/09/24 12/10/24 History mg-0.02 mg(21)/e.estrad 0.01 mg(5) tablet (Azurette (28)) dicyclomine 20 mg tablet 20 mg PO 4X/DAY 02/24/25 05/08/25 History eluxadoline 100 mg tablet (Viberzi) 100 mg PO BID 02/24/25 Unknown History sertraline 50 mg tablet 50 mg PO QDAY 02/24/25 Unknown History colestipol 1 gram tablet 1 g PO QDAY 05/07/25 Unknown History Allergy/AdvReac Type Severity Reaction Status Date / Time hydrocodone bitartrate (From Allergy Itching Verified 05/08/25 09:33 Vicodin) oxycodone (From Percocet) Allergy Itching Verified 05/08/25 09:33 sulfamethoxazole (From Allergy Itching Verified 05/08/25 09:33 Bactrim) tramadol Allergy Itching Verified 05/08/25 09:33 trimethoprim (From Bactrim) Allergy Itching Verified 05/08/25 09:33 Family History Mother Colon cancer Hypertension Heart disease CVA (cerebral vascular accident) Father Cancer Prostate Surgical History History of cystoscopy Hx of colonoscopy Hx of lithotripsy History of cholecystectomy Social History adopted: No household members: spouse housing: house Smoking Status: Never smoker alcohol intake: never substance use type: does not use seatbelt use: always do you feel safe at home: Yes ROS Constitutional Constitutional: Denies fatigue, fever(s), poor appetite, weight gain or weight loss Gastrointestinal Gastrointestinal: Denies belching, bloating, change in bowel habits, change in stool character, chewing difficulty, coffee ground emesis, constipation, cramping, diarrhea, dyspepsia, dysphagia, early satiety, excessive flatus, fecal incontinence, heartburn, hematemesis, hematochezia, hemorrhoids, loose stools, melena, nausea, odynophagia, rectal bleeding, tenesmus, vomiting or weight changes Vital Signs Vital Signs Vital Signs: 05/08/25 09:35 05/08/25 09:35 05/08/25 10:44 Temperature 96.9 F L 96.9 F L Temperature Source Temporal Pulse Rate 110 H 110 H Respiratory Rate 16 16 Respiratory Pattern Normal Blood Pressure 131/79 H 131/79 H Blood Pressure Mean 96 Blood Pressure Source Monitor Blood Pressure Position Semi-Fowlers Blood Pressure Location Right Arm Pulse Ox 98 98 Oxygen Delivery Method Room Air Room Air Weight Weight: 207 lb 14.334 oz Body Mass Index (BMI) 33.5 Physical Exam Const alert, oriented x3, no apparent distress and healthy appearing General Appearance: cooperative GI normal to inspection, nondistended, normoactive bowel sounds, soft to palpation, non-tender and non-distended Percussion: normal to percussion Rectal Exam: deferred Results Lab / Micro Data Labs: Laboratory Results - last 24 hr 05/08/25 09:15: POC PT 15.2 H, INR 1.3 05/08/25 09:45: Serum , Qual NEGATIVE Assessment & Plan Assessment/Plan (1) Diarrhea: QUALIFIERS: Diarrhea type: unspecified type Qualified Code(s): R19.7 - Diarrhea, unspecified PLAN: Assessment and Plan Assessment and Plan (1) Diarrhea: Status: Acute Qualifiers: Diarrhea type: unspecified type Qualified Code(s): R19.7 - Diarrhea, unspecified Plan: Suni is a 54-year-old female patient here today for follow-up regarding her loose stools. Patient having loose stool since August 2024 and underwent colonoscopy in October 2024 which was without abnormalities however biopsies for microscopic colitis were not obtained. Calprotectin from January 2025 was borderline and repeat from March 2025 was elevated at 189. Colestipol 1 g/day has controlled her diarrhea for the most part. She does continue to have looser stool 2-3 times per week. With her calprotectin being elevated and still having some loose stools I did recommend colonoscopy to evaluate for microscopic colitis. Patient is on PPI and SSRI which have been consistently associated with microscopic colitis. Patient is agreeable to have a repeat colonoscopy. -Continue colestipol 1 g daily - Repeat colonoscopy with random biopsies for microscopic colitis - Follow-up after procedure (2) Family history of colon cancer in mother: Status: Acute Comment: Age 57. In remission. Empower test Negative 10.3% Tyrer-zick Lifetime Breast Cancer Risk MGM pancreatic cancer. ]
--- NOTE | 2025-05-08 11:51 | PCM.POST.ANE ---
Anesthesia: Postop Eval I Current Vital Signs Temperature: 97 F Pulse Rate: 81 Blood Pressure: 107/61 Respiratory Rate: 16 Pulse Ox: 99 Oxygen Delivery Method: Room Air Assessment Airway patent: Yes Spontaneous unlabored respirations: Yes Mental status: Awake and Calm nausea: No Vomiting: No Anesthesia Complication: No Fluid Hydration Crystalloid volume administer (ml): 600 Total IV fluid infused: 600 Progress Note Anesthesia document: Postop Eval 1 completed: Yes
--- NOTE | 2025-05-08 11:55 | OP.PROVAT_ITS ---
05/08/2025 Regino Venegas MD [address] [id number] Re : Colonoscopy procedure for Suni Gonzalez Dear Dr. Venegas This procedure was performed on Thursday, May 08, 2025. My impressions and recommendations are as follows: Impressions : - Diverticulosis in the recto-sigmoid colon and in the sigmoid colon. - The entire examined colon is normal. Biopsied. - The examined portion of the ileum was normal. Biopsied. Recommendations : - Discharge patient to home. - Resume previous diet. - Continue present medications. - Await pathology results. - Repeat colonoscopy in 5 years for surveillance based on pathology results. My findings are described in the full procedure note, which is enclosed. If I can be of further assistance, please feel free to contact me at . Sincerely, Mario Dallas, 05/08/2025 11:55:02 AM This report has been signed electronically.
--- NOTE | 2025-05-08 11:55 | OP.COLON_ITS ---
Patient Name: Suni Gonzalez Procedure Date: 05/08/2025 11:07 AM Date of : 1970 Age: 54 Procedure: Colonoscopy Indications: Clinically significant diarrhea of unexplained origin Providers: Mario Dallas DO Referring MD: Regino Venegas MD Medicines: Monitored Anesthesia Care Patient Profile: This is a 54 year old female. Refer to note in patient chart for documentation of history and physical. Last Colonoscopy: more than 10 years ago. Complications: No immediate complications. Procedure: Pre-Anesthesia Assessment: - Prior to the procedure, a History and Physical was performed, and patient medications and allergies were reviewed. The patient is competent. The risks and benefits of the procedure and the sedation options and risks were discussed with the patient. All questions were answered and informed consent was obtained. Patient identification and proposed procedure were verified by the physician in the pre-procedure area. Mental Status Examination: alert and oriented. Airway Examination: normal oropharyngeal airway and neck mobility. Respiratory Examination: clear to auscultation. CV Examination: normal. Prophylactic Antibiotics: The patient does not require prophylactic antibiotics. Prior Anticoagulants: The patient has taken no anticoagulant or antiplatelet agents. ASA Grade Assessment: II - A patient with mild systemic disease. After reviewing the risks and benefits, the patient was deemed in satisfactory condition to undergo the procedure. The anesthesia plan was to use monitored anesthesia care (MAC). Immediately prior to administration of medications, the patient was re-assessed for adequacy to receive sedatives. The heart rate, respiratory rate, oxygen saturations, blood pressure, adequacy of pulmonary ventilation, and response to care were monitored throughout the procedure. The physical status of the patient was re-assessed after the procedure. After I obtained informed consent, the scope was passed under direct vision. Throughout the procedure, the patient's blood pressure, pulse, and oxygen saturations were monitored continuously. The Colonoscope was introduced through the anus and advanced to the terminal ileum. The colonoscopy was performed without difficulty. The patient tolerated the procedure well. The quality of the bowel preparation was adequate. The terminal ileum, ileocecal valve, appendiceal orifice, and rectum were photographed. Scope In: 11:25:36 AM Scope Withdrawal Time 0 hours 10 minutes 57 seconds Scope Out: 11:41:09 AM Total Procedure Duration Time 0 hours 15 minutes 33 seconds Findings: The perianal and digital rectal examinations were normal. A few small-mouthed diverticula were found in the recto-sigmoid colon and sigmoid colon. The colon (entire examined portion) appeared normal. Biopsies were taken with a cold forceps for histology. Verification of patient identification for the specimen was done. Estimated blood loss was minimal. The terminal ileum appeared normal. Biopsies were taken with a cold forceps for histology. Impression: - Diverticulosis in the recto-sigmoid colon and in the sigmoid colon. - The entire examined colon is normal. Biopsied. - The examined portion of the ileum was normal. Biopsied. Recommendation: - Discharge patient to home. - Resume previous diet. - Continue present medications. - Await pathology results. - Repeat colonoscopy in 5 years for surveillance based on pathology results. Procedure Code(s): --- Professional --- 67745, Colonoscopy, flexible; with biopsy, single or multiple CPT copyright 2021 [employer]. All rights reserved. The codes documented in this report are preliminary and upon fishing rod trimmer review may be revised to meet current compliance requirements. Mairo Dallas DO 05/08/2025 11:55:02 AM This report has been signed electronically. Number of Addenda: 0 Note Initiated On: 05/08/2025 11:07 AM
--- NOTE | 2025-05-08 12:36 | PCM.POSTANE2 ---
Anesthesia Postop Eval I Sum Postop Eval Completion status Anesthesia document: Postop Eval 1 completed: Yes Anesthesia Postop Eval I Summary Anesthesia Postop Eval I Summary: Anesthesia Postop Eval I: Assessment Summary Airway patent Yes 05/08/25 11:51 [email or web address] Spontaneous unlabored Yes 05/08/25 11:51 [email or web address] respirations Mental status Awake,Calm 05/08/25 11:51 [email or web address] nausea No 05/08/25 11:51 [email or web address] Vomiting No 05/08/25 11:51 [email or web address] Anesthesia Postop Eval I: Fluid Summary Crystalloid volume administer 600 05/08/25 11:51 [email or web address] (ml) Colloids volume administered ( ml) Blood Product volume administered (ml) Total IV fluid infused 600 05/08/25 11:51 [email or web address] Anesthesia Postop Eval I: Summary Notes Anesthesia Complication No 05/08/25 11:51 [email or web address] Anesthesia Complication Comment: Post-operative progress note Anesthesia: Postop Eval II Evaluation Mental status: Awake Pain Level: 0 nausea: No Vomiting: No Complications Anesthesia Complication: No
== END 2025-05-08 12:28 | disposition home or self-care (01) ==
LOC: EN 09:05 → AC 09:22
PROVIDERS: Anesthesiology; PCP Family Medicine; Referring Provider Family Medicine; Visit Provider Internal Medicine Gastroenterology
DX: R19.7 Diarrhea, unspecified (principal); E78.00 Pure hypercholesterolemia, unspecified; K57.30 Diverticulosis of large intestine without perforation or abscess without bleeding; I10 Essential (primary) hypertension; Z86.718 Personal history of other venous thrombosis and embolism; Z79.899 Other long term (current) drug therapy; K21.9 Gastro-esophageal reflux disease without esophagitis; Z79.01 Long term (current) use of anticoagulants; F41.9 Anxiety disorder, unspecified; F32.A Depression, unspecified; Z90.49 Acquired absence of other specified parts of digestive tract; Z80.0 Family history of malignant neoplasm of digestive organs
CPT/HCPCS: 45380; 36416; 84703; 85610; 88305; J2405

== ENCOUNTER → 2025-05-19 | Outpatient (CLI) | payer BC, SELFPAY | END | disposition home or self-care (01) | LOC: LABSPEC 14:10 | PROVIDERS: PCP Family Medicine; Visit Provider Physician Assistant | DX: R30.0 Dysuria (principal) | CPT/HCPCS: 87086; 87088; 87186 ==

== ENCOUNTER 2025-06-21 14:44 | Emergency (ER) | payer BC, SELFPAY ==
[2025-06-21 14:44] VITALS: BP 142/83; PULSE 97; RESP 16; TEMP 36.3; O2SAT 100; BMI 34.4
--- NOTE | 2025-06-21 15:15 | CT_ITS ---
PROCEDURE: CTA HEAD AND NECK W/ CONTRAST 06/21/2025 REASON FOR EXAM: PULSATILE TINNITUS LEFT EAR TECHNIQUE: Procedure Code: CTCTA.HDNCK Modality: CT Procedure: CTA HEAD AND NECK W/ CONTRAST Multiplanar Sagittal and Coronal images were obtained. 3D reconstructions CONTRAST: Isovue 370 VOLUME: 99 mL One or more dose reduction techniques were used (e.g., Automated exposure control, adjustment of the mA and/or kV according to patient size, use of iterative reconstruction technique). RADIATION DOSE SUMMARY: CTDlvol: 22 mGy DLP: 1473 mGycm FINDINGS: Normal aortic arch. Normal common carotid arteries. Normal carotid bifurcations. No carotid dissection. Normal cavernous carotid arteries. Normal left and right A1 segments. Normal A2 segments. Negative for findings of dural sinus thrombosis. No soft tissue masses are seen in the neck. Left vertebral artery dominant. No vertebral dissection. Normal vertebrobasilar junction. No basilar stenosis. There is a mass in the posterior fossa which is extra-axial and abuts the left petrous bone and extends towards the jugular foramen. Suggestive of meningioma. Relatively obscured on the precontrast images. CT/CTA Head AND Neck W/ Contrast IMPRESSION: 1. No vascular etiology for tinnitus identified. No vascular anomaly or dissec tion. 2. 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 Recommend MRI brain non emergently without and with contrast. 3. Incidental note is made of an empty sella Reading Location[facility]
--- NOTE | 2025-06-21 15:28 | EX.ED.VIS.EY ---
HPI History of Present Illness Chief Complaint: Eye Problem Informant: patient Narrative Narrative: Patient is a 54-year-old female with history of hypertension, DVT (on Coumadin), migraines, fibromyalgia, interstitial cystitis and anxiety presenting with vision changes as well as headache. Patient states that she has been having ringing in her left ear has been constant for the past week and a half. She states it is a high-pitched ringing sound as well as pulsatile in her left ear. She notes that before that she did have a questionable sinus infection. She notes that she is also been having daily frontal headaches that radiate to the back of her neck. She is been taking Tylenol without any significant relief. Does have extensive history of headaches and migraines. Was previously on Topamax but states did not really help and she was worried about the side effects of kidney stone so she stopped taking it. This week she followed up with her primary care doctor on , 3 days ago. She also 4 days ago developed blurry vision. She states it is binocular and worse when she looks into the distance. Then she starts to see double but she has a hard time describing it. It is better when she looks with monocular vision with either eye. She denies any eye pain. She denies any photosensitivity. She denies any numbness, tingling's, drooping never eyelids or room spinning sensation/vertigo. She states her blurry vision seems worse today which is what prompted her to come to the ER. She notes [facility] where they did an eye exam and told her everything looked normal and there and with no significant change in her prescription. She notes her primary care doctor also referred her to ENT for her ringing in her ears. She denies any head trauma. She is not sure when her last INR check was but she states she is normally therapeutic around 2.4-2.6. She states that she does get some intermittent nausea but currently does not have any. Denies any vomiting. She gets some rare lightheadedness with movements every once a while but that is not consistent either. [facility] Medical History Bladder disease Restless legs Wears partial dentures History of IBS Wears dentures Wears glasses Anxiety Depression Alcohol use Interstitial cystitis High cholesterol Headache Gastric reflux Shortness of breath on exertion Non-smoker History of pain when walking DVT (deep venous thrombosis) Chronic fatigue syndrome Fibromyalgia HTN (hypertension) Home Medications ?Medication ?Instructions ?Recorded ?Last Taken ?Type losartan 50 mg-hydrochlorothiazide 1 tab PO DAILY 02/09/20 12/10/24 History 12.5 mg tablet gabapentin 300 mg capsule 600 mg PO TID 07/01/20 12/10/24 History omeprazole 20 mg capsule,delayed 20 mg PO DAILY 07/01/20 05/08/25 History release potassium chloride 10 mEq 10 meq PO QDAY 05/09/24 12/10/24 History tablet,extended release warfarin 4 mg tablet 4 mg PO QDAY 05/09/24 05/03/25 History d-mannose 500 mg capsule 1,500 mg PO DAILY 08/28/24 12/10/24 History methenamine 81.6 mg-sod phos 40.8 1 tab PO 4X/DAY PRN BLADDER PAIN 08/28/24 12/10/24 History mg-methylene blue 0.12mg-hyos tablet (Urogesic-Blue) mirabegron 50 mg tablet,extended 100 mg PO QDAY 08/28/24 12/10/24 History release 24 hr (Myrbetriq) rosuvastatin 5 mg tablet 5 mg PO QDAY 08/28/24 12/10/24 History solifenacin 10 mg tablet 10 mg PO QHS 08/28/24 12/10/24 History desogestrel-e.estradiol 0.15 1 tab PO DAILY 10/09/24 12/10/24 History mg-0.02 mg(21)/e.estrad 0.01 mg(5) tablet (Azurette (28)) dicyclomine 20 mg tablet 20 mg PO 4X/DAY 02/24/25 05/08/25 History eluxadoline 100 mg tablet (Viberzi) 100 mg PO BID 02/24/25 Unknown History sertraline 50 mg tablet 50 mg PO QDAY 02/24/25 Unknown History colestipol 1 gram tablet 1 g PO QDAY 05/07/25 Unknown History fluconazole 150 mg tablet 150 mg PO Q3D #2 tabs 05/19/25 Unknown Rx nortriptyline 50 mg capsule 50 mg PO QHS #14 caps 06/21/25 Unknown Rx ondansetron 4 mg disintegrating 4 mg PO Q8H PRN PRN Nausea #10 tabs 06/21/25 Unknown Rx tablet Allergy/AdvReac Type Severity Reaction Status Date / Time hydrocodone bitartrate (From Allergy Itching Verified 06/21/25 14:46 Vicodin) oxycodone (From Percocet) Allergy Itching Verified 06/21/25 14:46 sulfamethoxazole (From Allergy Itching Verified 06/21/25 14:46 Bactrim) tramadol Allergy Itching Verified 06/21/25 14:46 trimethoprim (From Bactrim) Allergy Itching Verified 06/21/25 14:46 Family History Mother Colon cancer Hypertension Heart disease CVA (cerebral vascular accident) Father Cancer Prostate Surgical History History of cystoscopy Hx of colonoscopy Hx of lithotripsy History of cholecystectomy Social History adopted: No household members: spouse housing: house Smoking Status: Never smoker alcohol intake: never substance use type: does not use seatbelt use: always do you feel safe at home: Yes ROS ROS ED Constitutional Constitutional ED: Denies chills or fever(s) Eyes Eyes: Reports blurry vision bilateral and diplopia ENT ENT ED: Reports other Details: Ringing in left ear ; Denies ear pain, rhinorrhea or sore throat Cardiovascular Cardiovascular: Denies chest pain or palpitations Respiratory/Chest Respiratory/Chest: Denies cough or dyspnea Gastrointestinal Gastrointestinal: Denies abdominal pain, nausea or vomiting Musculoskeletal Musculoskeletal: Denies arthralgias or myalgias Integumentary Denies rash Neurologic Neurologic: Reports headache(s); Denies paresthesias or weakness Psychiatric Psychiatric: Reports anxiety Hematologic/Lymphatic Hematologic/Lymphatic: Reports easy bleeding, easy bruising and other Details: On Coumadin EXAM Physical Exam Const Vital Signs: 06/21/25 14:44 Temperature 97.3 F L Temperature Source Temporal Pulse Rate 97 Respiratory Rate 16 Blood Pressure 142/83 H Blood Pressure Mean 102 Pulse Ox 100 Positive well nourished and well developed General Appearance ED: well developed and NAD HEENT Reports TM's clear HEENT Narrative: Small fluid level noted behind the left tympanic membrane. No significant injection or cloudiness of the TMs bilaterally. Normal right TM. Normal ear canals present. Hearing intact to soft sounds bilaterally. atraumatic Nose: external nose normal Tympanic Membrane ED: Yes TM's clear Eyes Eyes Narrative: PERRL, EOMI. No visual field cut present. Normal accommodation. Normal tracking. No nystagmus present. Normal eyelids present. No conjunctival injection present. Neck supple and no JVD Resp normal respiratory effort and no retractions Cardio regular rate and regular rhythm GI non-tender and non-distended Extremity normal to inspection General Extremety ED: Negative for edema General Extremity: Negative for edema Neuro oriented x3, moves all extremities and no sensory deficits noted Neuro Narrative: NIH equals 0 Sensorium / Orientation: alert, oriented to person, oriented to place and oriented to time Sensory Exam: No sensory level loss detected Motor Exam: strength 5/5 throughout Psych Psych Narrative: Normal affect and mood Skin Lesions: no lesions Rashes: no rashes MDM MDM MDM Narrative Medical decision making narrative: Patient is a 54 year old female presenting with headaches, binocular diplopia and tinnitus. She has chronic headaches but they have been occurring and increased frequency. The tinnitus has been going on for a week and a half and she has had the diplopia for 4 days now. She has previously seen her PCP and her rotating equipment engineer for this. Differential includes space-occupying lesion of the brain, intracranial hemorrhage, aneurysm, electrolyte derangement, autoimmune process, MS. Lower suspicion for intraocular abnormality given that it is bilateral and apparently had a normal eye exam by the rotating equipment engineer yesterday. Lab work shows a nonspecific elevation of her CRP at 17 but otherwise normal. She does not report any night sweats or fevers. Lower suspicion for malignancy. CTA shows no vascular etiology for tinnitus or other acute vascular anomalies or dissections. She does have an extra-axial mass of the posterior fossa suggestive of a petrous apex meningioma. Incidental note is made of an empty sella. Low suspicion for temporal arteritis despite elevated CRP she does not have any temporal symptoms and is only 54 years old. These findings are reviewed with neurosurgery at [facility], Dr. Pedersen, who was also able to review the images. She feels that this is likely an incidental finding. Agreeable with outpatient follow-up with MRI. Questions also if she needs outpatient MRI of her temporal bone to look for schwannoma given her tenderness. Patient already has a follow-up with ENT scheduled. She also was in agreement that patient benefit from outpatient ophthalmology follow-up. I then spoke with Dr. Davis, ophthalmology on-call. He is agreeable to seeing her in the office tomorrow. No further acute recommendations. Patient is counseled to call the office tomorrow for same-day follow-up. Patient is given IV fluids, Benadryl and Reglan as well as Tylenol for her headache. Notes improvement states is still present. Is then given Toradol and Solu-Medrol for further headache control. Headache is still present but mild. Do not think she requires admission for intractable migraine at this point. Again she has a normal neurologic exam in the ER. I did discuss the case with her PCP given her incidental findings and need for multiple specialist follow-up. He recommend starting the patient on nortriptyline at night. Patient is given a prescription for this. Encouraged to follow-up with PCP. Also given outpatient referral for neurology for her frequent headaches. INR is mildly subtherapeutic at 1.8. Patient counseled to take 6 mg of Coumadin tomorrow. PCP is informed of this as well and we will continue outpatient follow-up with INR recommendations Patient has been counseled on findings and plan of care. Patient discharged home in stable condition Lab Data Attestation: I reviewed the patient's lab results. Lab results narrative: Laboratory Results - last 24 hr 06/21/25 06/21/25 15:31 15:53 WBC 8.8 RBC 4.33 Hgb 11.3 L Hct 35.1 L MCV 81.1 MCH 26.1 L MCHC 32.2 RDW Std Deviation 42.1 RDW Coeff of Leatha 14.3 Plt Count 371 MPV 9.7 Immature Gran % (Auto) 0.300 Neut % (Auto) 55.4 Lymph % (Auto) 36.0 Norman % (Auto) 5.5 Eos % (Auto) 2.2 Baso % (Auto) 0.6 Absolute Neuts (auto) 4.9 Absolute Lymphs (auto) 3.18 Nucleated RBC % 0 PT 21.7 H INR 1.8 Sodium 138 Potassium 3.7 Chloride 103 Carbon Dioxide 23.9 Anion Gap 11 BUN 12 Creatinine 0.74 Estim Creat Clear Calc 101.89 Est GFR (MDRD) Non-Af 96 BUN/Creatinine Ratio 16.5 Glucose 95 Calcium 9.1 C-React Prot Ext Range 17.10 H TSH 3.060 Urine Color Straw Urine Clarity Clear Urine pH 7.0 Ur Specific [place] 1.005 Urine Protein Negative Urine Glucose (UA) Normal Urine Ketones Negative Urine Occult Blood 10 H Urine Nitrite Negative Urine Bilirubin Negative Urine Urobilinogen Normal Ur Leukocyte Esterase Negative Urine RBC 0-5 SEEN Urine WBC 0-5 SEEN Ur Squamous Epith Cells 0-5 SEEN Urine Bacteria 0 SEEN Urine Mucus 0 SEEN Radiography Diagnostic Testing: Diagnostic Data Head/Neck CTA 06/21/25 15:15 IMPRESSION: 1. No vascular etiology for tinnitus identified. No vascular anomaly or dissection. 2. 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 Recommend MRI brain non emergently without and with contrast. 3. Incidental note is made of an empty sella Reading Location: [facility] Management Discussion w/another healthcare provider: Machine Cleaner (Neurosurgery, ophthalmology) and PCP Discharge Plan Triage Chief Complaint: Eye Problem ED Provider: Wendie Boes Dx/Rx/DC Orders Clinical Impression: Abnormal brain CT, Binocular vision disorder with diplopia, Frequent headaches, Left-sided tinnitus, Subtherapeutic anticoagulation Instructions: Tinnitus (Ringing in the Ears), ED Double Vision (Diplopia), ED, Migraine (Classical) Prescriptions: New ondansetron 4 mg tablet,disintegrating 4 mg PO Q8H PRN PRN (Reason: Nausea) Qty: 10 0RF nortriptyline 50 mg capsule 50 mg PO QHS Qty: 14 0RF No Action losartan-hydrochlorothiazide 50-12.5 mg tablet 1 tab PO DAILY warfarin 4 mg tablet 4 mg PO QDAY potassium chloride 10 mEq tablet extended release 10 meq PO QDAY methen-sod phos-meth blue-hyos [Urogesic-Blue] 81.6-40.8-0.12 mg tablet 1 tab PO 4X/DAY PRN Rx Instructions: administer with plenty of fluids d-mannose 500 mg capsule 1,500 mg PO DAILY solifenacin 10 mg tablet 10 mg PO QHS rosuvastatin 5 mg tablet 5 mg PO QDAY mirabegron [Myrbetriq] 50 mg tablet extended release 24 hr 100 mg PO QDAY dicyclomine 20 mg tablet 20 mg PO 4X/DAY sertraline 50 mg tablet 50 mg PO QDAY Viberzi 100 mg tablet 100 mg PO BID gabapentin 300 MG capsule 600 mg PO TID omeprazole 20 MG capsule,delayed release(DR/EC) 20 mg PO DAILY desog-e.estradiol/e.estradiol [Azurette (28)] 0.15-0.02 mgx21 /0.01 mg x 5 tablet 1 tab PO DAILY colestipol 1 gram tablet 1 g PO QDAY fluconazole 150 mg tablet 150 mg PO Q3D Qty: 2 0RF Rx Instructions: take one tab, repeat 3 days later if needed Primary Care Provider: Regino Venegas Referrals: Lashay Pedersen MD [Non-Staff, Neurosurgery] Regino Venegas MD [Primary Care Provider, Family Practice] Ming Butler MD [Non-Staff -Ordering Privileges, Neurology] Tian Davis MD [Med Staff - Active Staff, Opthamology] Activity Restrictions/Additional Instructions: Please follow-up with ENT as previously planned for the ringing in your ear. Please follow-up tomorrow with ophthalmology (Dr. Davis at [facility]) for eye evaluation. Let them know that you are seen the ER and we talked him on the phone. Call the office in the morning to make an appointment. Please follow-up either with neurosurgery ((information for [facility]) or your primary care doctor for further MRI evaluation of your brain. Your CT showed meningioma. The neurosurgeon at [facility] felt that likely it was not related to your symptoms but agrees that still needs further nonemergent outpatient follow-up. In addition might require further MRI evaluation of the inner ear for your further read however ENT can evaluate this further. You having information for neurology due to your frequent headaches for outpatient follow-up as well. In the meantime please discuss further migraine/headache management with your family doctor. Your INR was slightly low today at 1.8. Take 6 mg tomorrow morning (a tab and a half). I did speak with Dr. Venegas who states that he like to start you on nortriptyline for to further help with your headaches. A prescription has been sent. Take it at bedtime. It might make you little sleepy. In addition he would like you to call the office in the morning as he will be out of the office the rest of the week. Print Language: Croatian Disposition Disposition: Home, Self Care Discharge Date/Time: 06/21/25 20:45
[2025-06-21] MEDS: 0.9% Normal Saline (1000mL) 1,000 ML 999 ML IV (15:35)
[2025-06-21] MEDS: DiphenhydrAMINE 50 MG/ML Syringe 25 MG IV (15:35)
[2025-06-21 15:55] LABS: Hematocrit 35.1 % (37-47); Hemoglobin 11.3 g/dL (12.0-15.0); Immature Granulocytes Count 0.030 X10^3/uL (0.0-0.0); Mean Corp Hgb Conc 32.2 g/dL (32-36); Mean Corpuscular Volume 81.1 fL (81-99); Mean Platelet Vol. 9.7 fl (6.2-12.0); NRBC Flagged by Analyzer 0 % (0-5); Platelet Count 371 K/mm3 (150-450); RBC Distribution Width CV 14.3 % (11.6-14.6); RBC Distribution Width SD 42.1 fl (35.1-43.9); Red Blood Count 4.33 M/mm3 (4.2-5.4); White Blood Count 8.8 K/mm3 (4.4-11.0)
[2025-06-21 16:11] LABS: Anion Gap 11 (5-15); BUN 12 mg/dL (4-19); BUN/Creat Ratio 16.5 RATIO (10-20); CRP 17.10 mg/L (0.0-3.0); Calcium,Total 9.1 mg/dL (7.6-11.0); Carbon Dioxide 23.9 mmol/L (21.0-32.0); Chloride 103 mmol/L (98-108); Estimated Creatinine Clearance 101.89 ml/min (50-250); Glucose 95 mg/dL (70-99); Potassium 3.7 mmol/L (3.3-5.1)
[2025-06-21 16:15] LABS: Prothrombin Time (Protime)PT. 21.7 SECONDS (11.7-14.9)
[2025-06-21 16:44] VITALS: BP 144/71; PULSE 80; O2SAT 98
[2025-06-21 17:02] LABS: Mucous, Urine 0 SEEN /hpf (<or=2+)
[2025-06-21 17:05] LABS: Color, Urine Straw (Yellow); Glucose, Dipstick Normal (Normal); Ketone-Dipstick Negative (Negative); Leukocyte Esterase-Dipstick Negative /ul (Negative); Nitrite-Dipstick Negative (Negative); Occult Blood-Urine 10 /ul (Negative); Protein-Dipstick Negative (Negative); Specific Gravity, Urine 1.005 (1.002-1.030); Urine Bilirubin Dipstick Negative (Negative)
[2025-06-21 17:43] LABS: Red Blood Cells-Urine 0-5 SEEN /hpf (0-5); Squamous Epithelial Cells - UA 0-5 SEEN /hpf (5-10)
[2025-06-21 18:00] VITALS: BP 160/76; PULSE 84; O2SAT 98
--- NOTE | 2025-06-21 18:13 | PCA ---
THIS SECURITY PATROL DRIVER CALLED [employer] TO SET UP A TRANSFER. DENISA NEEDED TO ANSWER A DR CALLING ON ANOTHER LINE. SHE ASKED IF SHE COULD CALL BE BACK. NOW WAITING TO HEAR BACK FROM HER. 27 MINUTES LATER, THIS SECER
[2025-06-21 18:46] VITALS: BP 170/82; PULSE 82; O2SAT 99
[2025-06-21 18:54] VITALS: BP 170/82; PULSE 82; RESP 16; TEMP 36.1; O2SAT 99
--- NOTE | 2025-06-21 19:06 | CM.ED ---
Social Work Date of referral: 06/21/25 Reason for referral: Support Referred by: ED nurse Patient provided consent to social work visit. Patient's at patient's bedside in a chair. Patient and patient's both smiled throughout the visit and didn't appear to be visually under any distress. Patient was calm, relaxed and ready for next steps for treatment, whatever that looks like. Patient stated she is feeling hopeful and denied any needs/concerns at this time. Patient thanked social sciences research scientist for the visit. Lorrie Laguna, [employer], [employer]
[2025-06-21 20:00] VITALS: BP 142/74; PULSE 85; RESP 18; O2SAT 96
== END 2025-06-21 20:45 | disposition home or self-care (01) ==
PROVIDERS: Emergency Provider Emergency Medicine; PCP Family Medicine; Visit Provider Emergency Medicine
DX: R93.0 Abnormal findings on diagnostic imaging of skull and head, not elsewhere classified (principal); H53.2 Diplopia; R51.9 Headache, unspecified; H93.12 Tinnitus, left ear; M79.7 Fibromyalgia; Z86.718 Personal history of other venous thrombosis and embolism; Z79.01 Long term (current) use of anticoagulants
CPT/HCPCS: 70496; 70498; 80048; 81001; 84443; 85025; 85610; 86140; 96361; 96374; 96375; 96376; 99284; Q9967; A4216

== ENCOUNTER → 2025-06-23 | Outpatient (CLI) | payer BC, SELFPAY ==
--- NOTE | 2025-06-23 14:56 | MRI_ITS ---
PROCEDURE: BRAIN/ORBIT W/WO CONTRAST 06/23/2025 REASON FOR EXAM: Clinical history of brain mass. TECHNIQUE: Procedure Code: [id number] Modality: MR Procedure: BRAIN/ORBIT W/WO CONTRAST Multiplanar and multisequence images were obtained. CONTRAST: Clariscan VOLUME: 20 mL COMPARISON: None available FINDINGS: Homogeneous extra-axial enhancing mass centered at the left cerebellopontine angle measuring approximately 3.1 x 1.4 x 1.3 cm. Anteriorly, the mass extends to the retroclival region that appears to involve the posterior aspect of the left cavernous sinus and abutting the left cavernous carotid artery (series 14, image 9). Medially, there is abutment of the left cerebellum and nel without associated parenchymal edema. Inferolaterally, there is involvement of the jugular foramen. Superiorly, the mass appears to abut the left cranial nerve 7/8 complex. There is close proximity to the left trigeminal nerve without contact. No evidence of extension into the ipsilateral internal auditory canal or Meckel's cave. Mild asymmetrical left posterior fossa pachymeningeal enhancement and thickening including the left tentorial leaflet and left internal auditory canal dura. The ocular globes appear normal in contour. The lenses are in normal anatomic location. The optic nerves, optic chiasm, optic tracts, extraocular muscles, orbital fat, and lacrimal glands appear overall symmetric and within normal limits of size and signal. There is no evidence of enhancing mass or abnormal enhancement in the orbits. There is an empty sella. No abnormal enhancement of the pituitary gland. The pituitary stalk is midline. No acute infarct or hemorrhage.The brain parenchyma is within normal limits. No extra-axial fluid collection. No herniation of the brain. The ventricular system and sulci/fissures are within expected limits of size and configuration for the patient's stated age. The intracranial large vessel arterial flow voids are maintained. Left mastoid air cell effusion. There is scattered paranasal mucosal thickening. The calvarial bone marrow signal is within normal limits. MRI/Brain W/WO Contrast IMPRESSION: 1. Findings compatible with left petroclival meningioma. 2. Left mastoid air cell effusion. 3. Orbits are within normal limits. 4. No acute infarct or hemorrhage. Reading Location: [id number]
== END | disposition home or self-care (01) ==
PROVIDERS: PCP Family Medicine; Referring Provider Family Medicine; Visit Provider Family Medicine
DX: G93.89 Other specified disorders of brain (principal)
CPT/HCPCS: 70553; A9575